=== PATIENT | female | born 1940 | race Caucasian/White ===

== ENCOUNTER 2021-04-30 10:21 | Outpatient (REF) | payer MEDICARE, SELFPAY ==
--- NOTE | ~2021-04-30 | MM_ITS ---
EXAMINATION: BONE DENSITOMETRY CLINICAL INDICATION: Fracture of greater tuberosity of right humerus. COMPARISON: Baseline BD dated 01/03/2013. TECHNIQUE: Using a [employer].M.A[employer].C. DXA System (software version: 13.1) manufactured by [employer], dual-energy x-ray absorptiometry was performed of the lumbar spine and left hip. The images are of good technical quality. Summary results are attached. FINDINGS: AP SPINE L1-L2 (excluding L3 and L4): The data of L1-L4 has been changed to exclude the L3 and L4 vertebral bodies, because hardware at these levels may cause overestimation of lumbar spine density. Current: BMD 0.991 g/cm2, Z-score 0.2, T-score -1.5, osteopenia, 9.4% decrease from baseline (<5% change is not significant). Baseline: BMD 1.094 g/cm2. LEFT FEMUR, NECK: Current: BMD 0.759 g/cm2, Z-score 0.0, T-score -2.0, osteopenia. Baseline: BMD 0.754 g/cm2. LEFT FEMUR, TOTAL: Current: BMD 0.680 g/cm2, Z-score -0.7, T-score -2.6, osteoporosis, 13.2% decrease from baseline (<5% change is not significant). Baseline: BMD 0.783 g/cm2. IDENTIFIED RISK FACTORS: Early menopause, secondary osteoporosis, hysterectomy, bilateral oophorectomy, history of fracture (adult). HISTORY OF FRACTURE: Humerus. MEDICATIONS: Vitamin D. MM/XR DEXA axial skeleton IMPRESSION: 1. DIAGNOSIS: Osteoporosis based on the lowest T-score value of -2.6 in the total femur applying World Health Organization criteria. 2. 10-YEAR FRACTURE RISK PREDICTION, FRAX: According to the guidelines, FRAX calculation should only be performed on patients in the osteopenia bone density category. Therefore, FRAX was not performed on this patient. 3. Treatment Recommendations: NOF guidelines recommend consideration for treatment in postmenopausal women and men age 50 and older presenting with the following: -A hip or vertebral (clinical or morphometric) fracture. -T-score less than or equal to -2.5 at the femoral neck or spine after appropriate evaluation to exclude secondary causes. -Low bone mass at the hip or spine and a 10-year fracture probability by FRAX of greater than or equal to 3% for hip fracture or greater than or equal to 20% for major osteoporotic fracture based on the [place] adapted WHO algorithm. 4. Other Recommendations: All treatment decisions require clinical judgment and consideration of individual patient factors, including patient preferences, comorbidities, previous drug use, risk factors not captured in the FRAX model (e.g. frailty, falls, vitamin D deficiency, increased bone turnover, interval significant decline in bone density) and possible under or overestimation of fracture risk by FRAX. Additional medical evaluation for secondary cause of low bone mineral density may be appropriate. FUTURE SCAN RECOMMENDATION: People with diagnosed cases of osteoporosis or at high risk for fracture should have regular bone mineral density tests. For patients eligible for Medicare, routine testing is allowed once every 2 years. The testing frequency can be increased to one year for patients who have rapidly progressing disease, those who are receiving or discontinuing medical therapy to restore bone mass, or have additional risk factors.
== END 2021-04-30 10:22 | disposition home or self-care (01) ==
LOC: HO.MAMMO 10:21
PROVIDERS: PCP Internal Medicine; Visit Provider Internal Medicine
DX: Z13.820 Encounter for screening for osteoporosis (principal); M81.0 Age-related osteoporosis without current pathological fracture; Z78.0 Asymptomatic menopausal state; Z79.899 Other long term (current) drug therapy
CPT/HCPCS: 77080

== ENCOUNTER 2021-07-15 09:30 | Outpatient (REF) | payer OTHER, SELFPAY ==
[2021-07-15 11:07] LABS: MANUAL DIFF FLAG NO
[2021-07-15 11:47] LABS: Basophils Percent Auto 0.4 % (0-2); Eosinophils Absolute Auto 0.2 X10*3/uL (0.0-0.4); Eosinophils Percent Auto 2.6 % (0-4); Hematocrit 32.5 % (37.0-47.0); Hemoglobin 10.2 g/dl (12.0-16.0); Imm Gran Abs Auto 0.01 X10*3/uL (0.00-0.03); Imm Gran Pct Auto 0.1 % (0.0-0.4); Lymphocytes Absolute Auto 2.9 X10*3/uL (1.2-4.9); Mean Corpuscular HGB Conc 31.4 g/dl (31.0-35.0); Mean Corpuscular Volume 92.3 fL (80.0-98.0); Mean Platelet Volume 12.2 fL (9.4-12.3); Monocytes Absolute Auto 0.4 X10*3/uL (0.1-1.2); Monocytes Percent Auto 4.4 % (2-11); Neutrophils Absolute Auto 5.5 x10*3/uL (2.0-8.3); Neutrophils Percent Auto 60.5 % (45-73); Platelet Count 238 X10*3/uL (160-400); Red Blood Count 3.52 X10*6/uL (4.20-5.50); Red Cell Distribution Width 14.2 % (11.0-16.0); White Blood Count 9.1 X10*3/uL (4.8-10.8)
[2021-07-15 12:28] LABS: Alanine Aminotransferase 10 U/L (0-31); Alkaline Phosphatase 66 U/L (39-117); Anion Gap 17 (12-20); Aspartate Amino Transferase 34 U/L (5-31); Bilirubin Total 0.2 mg/dL (0.0-1.0); Blood Urea Nitrogen 10 mg/dL (9-16); Calcium 10.1 mg/dL (8.4-10.2); Carbon Dioxide 20 mmol/L (22-29); Chloride 106 mmol/L (96-108); Estimated Glomerular Filt Rate > 60; Glucose Random 138 mg/dL (60-115); Potassium 5.4 mmol/L (3.3-5.1); Sodium 138 mmol/L (135-145); Total Protein 7.4 g/dL (6.5-8.0)
[2021-07-15 12:40] LABS: Ferritin 10 ng/mL (10-250)
== END 2021-07-15 09:31 | disposition home or self-care (01) ==
LOC: HO.LAB 09:30
PROVIDERS: PCP Internal Medicine; Referring Provider Internal Medicine; Visit Provider Nurse Practitioner
DX: D50.9 Iron deficiency anemia, unspecified (principal); Z12.11 Encounter for screening for malignant neoplasm of colon; Z79.899 Other long term (current) drug therapy
CPT/HCPCS: 36415; 80053; 82728; 85025; 99202

== ENCOUNTER 2023-02-01 09:28 | Outpatient (REF) | payer OTHER, SELFPAY ==
[2023-02-01 14:37] LABS: MANUAL DIFF FLAG NO
[2023-02-01 14:41] LABS: Basophils Percent Auto 0.4 % (0-2); Eosinophils Absolute Auto 0.2 X10*3/uL (0.0-0.4); Eosinophils Percent Auto 3.1 % (0-4); Hematocrit 36.5 % (37.0-47.0); Hemoglobin 11.9 g/dl (12.0-16.0); Imm Gran Abs Auto 0.01 X10*3/uL (0.00-0.03); Imm Gran Pct Auto 0.1 % (0.0-0.4); Lymphocytes Absolute Auto 2.5 X10*3/uL (1.2-4.9); Lymphocytes Percent Auto 35.9 % (20-40); Mean Corpuscular HGB Conc 32.6 g/dl (31.0-35.0); Mean Corpuscular Hemoglobin 31.7 pg (27.0-33.0); Mean Corpuscular Volume 97.3 fL (80.0-98.0); Mean Platelet Volume 11.9 fL (9.4-12.3); Monocytes Absolute Auto 0.4 X10*3/uL (0.1-1.2); Monocytes Percent Auto 5.2 % (2-11); Neutrophils Absolute Auto 3.9 x10*3/uL (2.0-8.3); Neutrophils Percent Auto 55.3 % (45-73); Platelet Count 236 X10*3/uL (160-400); Red Blood Count 3.75 X10*6/uL (4.20-5.50); Red Cell Distribution Width 12.3 % (11.0-16.0); White Blood Count 7.1 X10*3/uL (4.8-10.8)
[2023-02-01 15:08] LABS: Creatinine Urine 146.85 mg/dL; Microalbum/Creatinine Ratio Ur 8.1 ug/mg cr (<30)
[2023-02-01 15:11] LABS: Alanine Aminotransferase 16 U/L (0-31); Albumin Level 3.8 g/dL (3.5-5.0); Alkaline Phosphatase 84 U/L (39-117); Anion Gap 13 (12-20); Aspartate Amino Transferase 35 U/L (5-31); Bilirubin Direct < 0.2 mg/dL (0.0-0.5); Bilirubin Total 0.2 mg/dL (0.0-1.0); Blood Urea Nitrogen 10 mg/dL (9-16); Calcium 9.4 mg/dL (8.4-10.2); Carbon Dioxide 26 mmol/L (22-29); Chloride 105 mmol/L (96-108); Cholesterol 136 mg/dL (<200); Estimated Glomerular Filt Rate 47; Glucose Random 287 mg/dL (60-115); HDL Cholesterol 38 mg/dL (>40); LDL Cholesterol Calculated 63 mg/dL (<100); Potassium 4.1 mmol/L (3.3-5.1); Sodium 140 mmol/L (135-145); Total Protein 7.2 g/dL (6.5-8.0); Triglycerides 179 mg/dL (<150)
[2023-02-01 15:18] LABS: TSH reflex Free T4 10.91 uIU/mL (0.32-4.0)
[2023-02-01 16:09] LABS: Free T4 (Free Thyroxine) 0.93 ng/dL (0.71-1.85)
== END 2023-02-01 09:29 | disposition home or self-care (01) ==
LOC: HO.CHCLDS 09:28
PROVIDERS: Visit Provider Internal Medicine
DX: E11.9 Type 2 diabetes mellitus without complications (principal); E03.9 Hypothyroidism, unspecified; E78.00 Pure hypercholesterolemia, unspecified
CPT/HCPCS: 36415; 80048; 80061; 80076; 82043; 82570; 84439; 84443; 85025

== ENCOUNTER 2023-11-15 11:02 | Outpatient (REF) | payer OTHER, SELFPAY ==
[2023-11-15 14:26] LABS: MANUAL DIFF FLAG NO
[2023-11-15 14:35] LABS: Basophils Percent Auto 0.4 % (0-2); Eosinophils Absolute Auto 0.1 X10*3/uL (0.0-0.4); Eosinophils Percent Auto 1.7 % (0-4); Hematocrit 41.1 % (37.0-47.0); Hemoglobin 13.8 g/dl (12.0-16.0); Imm Gran Abs Auto 0.02 X10*3/uL (0.00-0.03); Imm Gran Pct Auto 0.3 % (0.0-0.4); Lymphocytes Absolute Auto 2.2 X10*3/uL (1.2-4.9); Mean Corpuscular HGB Conc 33.6 g/dl (31.0-35.0); Mean Corpuscular Hemoglobin 34.1 pg (27.0-33.0); Mean Corpuscular Volume 101.5 fL (80.0-98.0); Mean Platelet Volume 11.6 fL (9.4-12.3); Monocytes Absolute Auto 0.5 X10*3/uL (0.1-1.2); Monocytes Percent Auto 6.6 % (2-11); Neutrophils Absolute Auto 4.2 x10*3/uL (2.0-8.3); Platelet Count 225 X10*3/uL (160-400); Red Blood Count 4.05 X10*6/uL (4.20-5.50); Red Cell Distribution Width 12.4 % (11.0-16.0)
[2023-11-15 14:54] LABS: Alanine Aminotransferase 39 U/L (0-31); Albumin Level 4.5 g/dL (3.5-5.0); Alkaline Phosphatase 170 U/L (39-117); Anion Gap 16 (12-20); Aspartate Amino Transferase 53 U/L (5-31); Bilirubin Total 0.3 mg/dL (0.0-1.0); Blood Urea Nitrogen 12 mg/dL (9-16); Calcium 10.5 mg/dL (8.4-10.2); Carbon Dioxide 27 mmol/L (22-29); Chloride 103 mmol/L (96-108); Cholesterol 171 mg/dL (<200); Estimated Glomerular Filt Rate 55; Glucose Random 235 mg/dL (60-115); HDL Cholesterol 60 mg/dL (>40); LDL Cholesterol Calculated 74 mg/dL (<100); Sodium 142 mmol/L (135-145); Total Protein 8.5 g/dL (6.5-8.0); Triglycerides 185 mg/dL (<150)
[2023-11-15 15:15] LABS: TSH reflex Free T4 0.28 uIU/mL (0.32-4.0); Vitamin D 25-OH Total 45.6 ng/mL (>30)
[2023-11-15 15:17] LABS: Folate 12.3 ng/mL (> or = 4.0); Vitamin B12 152 pg/mL (200-900)
[2023-11-15 15:50] LABS: Free T4 (Free Thyroxine) 1.04 ng/dL (0.71-1.85)
[2023-11-16 08:15] LABS: Syphilis Screen Nonreactive (Nonreactive)
== END 2023-11-15 11:03 | disposition home or self-care (01) ==
LOC: HO.CHCLDS 11:02
PROVIDERS: Visit Provider Internal Medicine
DX: R41.3 Other amnesia (principal); E78.00 Pure hypercholesterolemia, unspecified; E55.9 Vitamin D deficiency, unspecified
CPT/HCPCS: 36415; 80053; 80061; 82306; 82607; 82746; 84439; 84443; 85025; 86780

== ENCOUNTER 2023-11-20 09:50 | Outpatient (REF) | payer OTHER, SELFPAY ==
[2023-11-20 15:09] LABS: Anion Gap 17 (12-20); Blood Urea Nitrogen 12 mg/dL (9-16); Calcium 10.2 mg/dL (8.4-10.2); Carbon Dioxide 26 mmol/L (22-29); Chloride 104 mmol/L (96-108); Estimated Glomerular Filt Rate > 60; Glucose Random 182 mg/dL (60-115); Sodium 143 mmol/L (135-145)
[2023-11-20 15:20] LABS: Parathyroid Hormone Intact 73.8 pg/mL (8.7-77.1)
[2023-11-21 04:47] LABS: HBS Num1 0.66 mIU/mL (0-7.99); HBc Num1 0.11 S/CO (0.00-0.79); HBsAGNum1 0.32 S/CO (0.00-0.99); Hepatitis A Antibody IgM 0.18 Index (0-0.79); Hepatitis B Core Antibody Nonreactive (Nonreactive); Hepatitis B Surface Antigen Negative (Negative); ~HepC Num1 0.07 S/CO (0.00-0.79); ~Hepatitis A Antibody IgM Nonreactive (Nonreactive); ~Hepatitis B Surface Antibody NONREACTIVE (Nonreactive); ~Hepatitis C Antibody Nonreactive (Nonreactive)
== END 2023-11-20 09:51 | disposition home or self-care (01) ==
LOC: HO.CHCLDS 09:50
PROVIDERS: Visit Provider Internal Medicine
DX: E83.52 Hypercalcemia (principal); R74.01 Elevation of levels of liver transaminase levels
CPT/HCPCS: 36415; 80048; 83970; 86704; 86706; 86709; 86803; 87340

== ENCOUNTER 2023-11-22 09:37 | Outpatient (REF) | payer OTHER, SELFPAY ==
--- NOTE | ~2023-11-22 | US_ITS ---
EXAMINATION: US ABDOMEN COMPLETE CLINICAL INFORMATION: Transaminitis. COMPARISON: CT abdomen and pelvis 06/23/2016. TECHNIQUE: Real-time imaging of the abdominal viscera. FINDINGS: PANCREAS: The pancreas appears unremarkable, without masses or ductal dilatation, with the exception of the tail which is obscured by bowel gas. ABDOMINAL AORTA: The proximal, mid, and distal segments are normal in caliber. Atherosclerotic changes are present. INFERIOR VENA CAVA: Visualized portions are normal. LIVER: The liver is enlarged measuring 17.5 cm in greatest dimension. The liver contour is normal. There is diffuse increased liver parenchymal echogenicity, consistent with hepatic steatosis. No focal hepatic lesion. There is no intrahepatic biliary duct dilatation seen. GALLBLADDER: Surgically absent. COMMON BILE DUCT: Normal in caliber measuring 0.8 cm in diameter. RIGHT KIDNEY: No hydronephrosis. No renal calculi or focal parenchymal lesions. The kidney measures 8.9 cm in maximum dimension. LEFT KIDNEY: No hydronephrosis. No renal calculi or focal parenchymal lesions. The kidney measures 10.5 cm in maximum dimension. SPLEEN: Normal. The spleen measures 9.2 cm in maximum dimension. FREE FLUID: None. US/US abdomen complete IMPRESSION: Enlarged fatty liver. Electronically signed by: Clint Gil MD 11/29/2023 02:10 PM EDT
== END 2023-11-22 09:38 | disposition home or self-care (01) ==
LOC: HO.US 09:37
PROVIDERS: PCP Internal Medicine; Visit Provider Internal Medicine
DX: R74.01 Elevation of levels of liver transaminase levels (principal)
CPT/HCPCS: 76700

== ENCOUNTER 2024-02-05 10:47 | Outpatient (REF) | payer OTHER, SELFPAY ==
[2024-02-05 15:03] LABS: Alanine Aminotransferase 28 U/L (0-31); Albumin Level 4.1 g/dL (3.5-5.0); Alkaline Phosphatase 104 U/L (39-117); Anion Gap 16 (12-20); Aspartate Amino Transferase 59 U/L (5-31); Bilirubin Total 0.3 mg/dL (0.0-1.0); Blood Urea Nitrogen 7 mg/dL (9-16); Calcium 9.6 mg/dL (8.4-10.2); Carbon Dioxide 25 mmol/L (22-29); Chloride 104 mmol/L (96-108); Estimated Glomerular Filt Rate > 60; Glucose Random 118 mg/dL (60-115); Potassium 3.9 mmol/L (3.3-5.1); Sodium 141 mmol/L (135-145); TSH reflex Free T4 74.29 uIU/mL (0.32-4.0); Total Protein 7.4 g/dL (6.5-8.0)
[2024-02-05 15:16] LABS: Folate 7.8 ng/mL (> or = 4.0); Vitamin B12 812 pg/mL (200-900)
[2024-02-05 15:34] LABS: Free T4 (Free Thyroxine) 0.49 ng/dL (0.71-1.85)
== END 2024-02-05 10:48 | disposition home or self-care (01) ==
LOC: HO.CHCLDS 10:47
PROVIDERS: Visit Provider Internal Medicine
DX: K76.0 Fatty (change of) liver, not elsewhere classified (principal); E03.9 Hypothyroidism, unspecified; E11.9 Type 2 diabetes mellitus without complications; E53.8 Deficiency of other specified B group vitamins
CPT/HCPCS: 36415; 80053; 82607; 82746; 84439; 84443

== ENCOUNTER 2024-05-27 15:52 | Outpatient (REF) | payer OTHER, SELFPAY ==
[2024-05-27 17:29] LABS: MANUAL DIFF FLAG NO
[2024-05-27 17:36] LABS: Basophils Percent Auto 0.6 % (0-2); Eosinophils Absolute Auto 0.2 X10*3/uL (0.0-0.4); Eosinophils Percent Auto 3.5 % (0-4); Hematocrit 34.4 % (37.0-47.0); Hemoglobin 11.3 g/dl (12.0-16.0); Imm Gran Abs Auto 0.02 X10*3/uL (0.00-0.03); Imm Gran Pct Auto 0.3 % (0.0-0.4); Lymphocytes Absolute Auto 2.3 X10*3/uL (1.2-4.9); Lymphocytes Percent Auto 36.5 % (20-40); Mean Corpuscular HGB Conc 32.8 g/dl (31.0-35.0); Mean Corpuscular Hemoglobin 34.1 pg (27.0-33.0); Mean Corpuscular Volume 103.9 fL (80.0-98.0); Mean Platelet Volume 12.2 fL (9.4-12.3); Monocytes Absolute Auto 0.4 X10*3/uL (0.1-1.2); Monocytes Percent Auto 5.8 % (2-11); Neutrophils Absolute Auto 3.3 x10*3/uL (2.0-8.3); Neutrophils Percent Auto 53.3 % (45-73); Platelet Count 222 X10*3/uL (160-400); Red Blood Count 3.31 X10*6/uL (4.20-5.50); Red Cell Distribution Width 12.8 % (11.0-16.0); White Blood Count 6.2 X10*3/uL (4.8-10.8)
[2024-05-27 18:10] LABS: Alanine Aminotransferase 82 U/L (0-31); Albumin Level 4.5 g/dL (3.5-5.0); Alkaline Phosphatase 145 U/L (39-117); Anion Gap 14 (12-20); Aspartate Amino Transferase 92 U/L (5-31); Bilirubin Total 0.3 mg/dL (0.0-1.0); Blood Urea Nitrogen 13 mg/dL (9-16); Calcium 9.9 mg/dL (8.4-10.2); Carbon Dioxide 28 mmol/L (22-29); Chloride 104 mmol/L (96-108); Estimated Glomerular Filt Rate > 60; Glucose Random 218 mg/dL (60-115); Sodium 142 mmol/L (135-145); Total Protein 8.4 g/dL (6.5-8.0)
[2024-05-27 18:28] LABS: TSH reflex Free T4 41.55 uIU/mL (0.32-4.0)
[2024-05-27 18:38] LABS: Folate 11.3 ng/mL (> or = 4.0); Vitamin B12 335 pg/mL (200-900)
[2024-05-27 19:00] LABS: Free T4 (Free Thyroxine) 0.55 ng/dL (0.71-1.85)
== END 2024-05-27 15:53 | disposition home or self-care (01) ==
LOC: HO.CHCLDS 15:52
PROVIDERS: Visit Provider Internal Medicine
DX: E03.9 Hypothyroidism, unspecified (principal); E53.8 Deficiency of other specified B group vitamins
CPT/HCPCS: 36415; 80053; 82607; 82746; 84439; 84443; 85025

== ENCOUNTER 2024-08-06 11:20 | Emergency (ER) | payer OTHER, SELFPAY ==
[2024-08-06] VITALS (7 sets, daily range): BP systolic 134–155; BP diastolic 70–82; PULSE 64–77; RESP 13–16; TEMP 36.7–37.1; O2SAT 95–99; BMI 31.2
--- NOTE | ~2024-08-06 | CT_ITS ---
CLINICAL HISTORY: Dizziness CT head without contrast Comparison: None Findings: No acute hemorrhage. No extra-axial fluid collection. No hydrocephalus, mass-effect or herniation. Ruvalcaba-white differentiation is maintained. There is patchy hypoattenuation of the periventricular and deep white matter, which is most likely the sequela of severe chronic small vessel ischemic disease. No acute orbital pathology. No acute soft tissue abnormality. No fracture. The visualized paranasal sinuses are predominantly clear. The right mastoid air cells are clear. Opacification of left posterior inferior mastoid air cells may indicate an effusion or mastoiditis. There is coalescence which may indicate chronicity. Impression: No acute intracranial findings. CTA of the head and neck with 3-D postprocessing Comparison: None Findings: No significant carotid artery stenosis. 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 V4 segment of the left vertebral artery is hypoplastic. The cerebellar and posterior cerebral arteries are intact. The intracranial internal carotid arteries are patent. The middle/anterior cerebral arteries are intact. No aneurysm. No mass, midline shift, hydrocephalus, acute hemorrhage or abnormal contrast enhancement. The lung apices are clear. The soft tissues of the head and neck are unremarkable. 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 This vessel feeds the posterior circulation and there is severe calcified atherosclerotic disease with significant stenosis. 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 No aneurysm. This document has been electronically signed by: Nolvia Victor MD on 08/06/2024 18:28:50
--- NOTE | ~2024-08-06 | CT_ITS ---
CLINICAL HISTORY: Blood in urine. back pain CT abdomen and pelvis without contrast Comparison: None Findings: No consolidation at the lung bases. Status post cholecystectomy and hysterectomy. Mild wall thickening of the bladder. No bladder stone. Mild fullness of the right renal pelvis. No left hydronephrosis. No nephrolithiasis. The other solid organs are unremarkable. No bowel wall thickening or dilation. A normal appendix is identified. Colonic diverticulosis. No aneurysm. Moderate calcified atherosclerotic disease. No lymphadenopathy. No ascites. No acute osseous abnormality. Status post posterior fusion L3 through L5. Intact hardware Impression: Mild wall thickening of the bladder may indicate cystitis. Mild fullness of the right renal pelvis can be seen in the setting of infection. Correlate with urinalysis. No urinary tract stone. This document has been electronically signed by: Nolvia Victor MD on 08/06/2024 18:07:46
--- NOTE | ~2024-08-06 | CT_ITS ---
CLINICAL HISTORY: Pneumonia? Fatigue CT chest without contrast Comparison: None Findings: No mediastinal mass or lymphadenopathy. No cardiomegaly. Severe calcified coronary artery disease. Mild calcification of the aortic valve and mitral annulus. Normal size thoracic aorta with a moderate amount of calcified atherosclerotic disease. Calcified granuloma. Subsegmental atelectasis versus linear scarring. Mosaic attenuation which may indicate air trapping. Pulmonary nodules measure up to 3 mm. No pneumothorax or pleural effusion. No acute osseous or soft tissue abnormality. No acute pathology in the imaged portion of the upper abdomen. Status post cholecystectomy. Impression: No pneumonia. Pulmonary nodules measuring up to 3 mm, likely infectious/inflammatory. No follow-up is required in low risk individuals. High risk individuals have the option of a 1 year follow-up chest CT. This document has been electronically signed by: Nolvia Victor MD on 08/06/2024 18:04:38
--- NOTE | 2024-08-06 11:28 | ECG_ITS ---
Test Reason : weakness Blood Pressure : */* mmHG Vent. Rate : 75 BPM Atrial Rate : 75 BPM P-R Int : 152 ms QRS Dur : 82 ms QT Int : 394 ms P-R-T Axes : 73 38 36 degrees QTcB Int : 439 ms Normal sinus rhythm Nonspecific T wave abnormality Abnormal ECG When compared with ECG of 08-Jul-2016 13:42, Nonspecific T wave abnormality now evident in Inferior leads Nonspecific T wave abnormality now evident in Anterolateral leads Referred By: Generic ED Physician Electronically Signed By: SOWMYA GROSS MD
[2024-08-06 12:00] LABS: MANUAL DIFF FLAG NO
[2024-08-06 12:02] LABS: Basophils Percent Auto 0.4 % (0-2); Eosinophils Absolute Auto 0.4 X10*3/uL (0.0-0.4); Eosinophils Percent Auto 4.9 % (0-4); Hematocrit 33.7 % (37.0-47.0); Hemoglobin 11.6 g/dl (12.0-16.0); Imm Gran Abs Auto 0.02 X10*3/uL (0.00-0.03); Imm Gran Pct Auto 0.3 % (0.0-0.4); Lymphocytes Absolute Auto 2.6 X10*3/uL (1.2-4.9); Lymphocytes Percent Auto 36.9 % (20-40); Mean Corpuscular HGB Conc 34.4 g/dl (31.0-35.0); Mean Corpuscular Hemoglobin 34.3 pg (27.0-33.0); Mean Corpuscular Volume 99.7 fL (80.0-98.0); Mean Platelet Volume 10.9 fL (9.4-12.3); Monocytes Absolute Auto 0.4 X10*3/uL (0.1-1.2); Neutrophils Absolute Auto 3.8 x10*3/uL (2.0-8.3); Neutrophils Percent Auto 52.5 % (45-73); Platelet Count 191 X10*3/uL (160-400); Red Blood Count 3.38 X10*6/uL (4.20-5.50); Red Cell Distribution Width 12.2 % (11.0-16.0); White Blood Count 7.2 X10*3/uL (4.8-10.8)
[2024-08-06 12:14] LABS: Appearance Urine Turbid; Color Urine Yellow; Glucose Urine UA Negative (Negative); Leukocyte Esterase Urine Large (3+) (Negative); Nitrite Urine Negative (Negative); PH 5.5 (5.0-9.0); Specific Gravity - Urine 1.015 (1.005-1.025); UMIC TRIGGER UACC YES; Urine Blood Trace (Negative); Urine Ketones Negative (Negative); Urine Protein Trace mg/dL (Neg-Trace)
[2024-08-06 12:16] LABS: Bacteria Urine 4+ (None Seen); Hyaline Casts Urine 0-2 /LPF (0-2); RBC Urine 0-2 /HPF (0-2); Squamous Epithelial Cell Urine 0-2 /HPF (0-2); UACC Culture Trigger YES; WBC Urine >50 /HPF (0-5)
[2024-08-06 12:17] LABS: Alanine Aminotransferase 106 U/L (0-31); Albumin Level 4.5 g/dL (3.5-5.0); Alkaline Phosphatase 140 U/L (39-117); Anion Gap 16 (12-20); Aspartate Amino Transferase 114 U/L (5-31); Bilirubin Total 0.2 mg/dL (0.0-1.0); Blood Urea Nitrogen 9 mg/dL (9-16); Calcium 9.6 mg/dL (8.4-10.2); Carbon Dioxide 22 mmol/L (22-29); Chloride 105 mmol/L (96-108); Creatinine Clr Calc Pharmacy 51.2; Estimated Glomerular Filt Rate > 60; Glucose Random 133 mg/dL (60-115); Potassium 4.3 mmol/L (3.3-5.1); Sodium 139 mmol/L (135-145); Total Protein 7.9 g/dL (6.5-8.0)
[2024-08-06 12:26] LABS: Troponin-I High Sensitivity < 2.7 ng/L (<3.5-17.0)
[2024-08-06 12:40] LABS: Influenza A PCR NEGATIVE (Negative); Influenza B PCR NEGATIVE (Negative); Resp Syncy Virus RNA Qual PCR NEGATIVE (Negative); SARS COV2 PCR INHOUSE NEGATIVE (Negative)
--- NOTE | 2024-08-06 12:55 | ED_ITS ---
HPI - General Adult General Chief complaint: General Medical Stated complaint: Chills, back pain, fatigue Time Seen by Provider: 08/06/24 12:54 Source: patient Mode of arrival: ambulatory Limitations: no limitations History of Present Illness ED Provider: Vik Gallegos HPI narrative: 84 yold female with pmh of DM and HTN presents to the ED low back pain radiating down legs, decrease appetiite, fatigue, and dizziness for one week. Patient and daughter denies falling, hitting head, or urinary/bowel incontinnce. Patient denies any abdominal pain, fever, chills, chest pain, or coughing. patient denies any IV drug use or immunocompromised diseases. Related Data Home Medications ?Medication ?Instructions ?Recorded ?Confirmed cholecalciferol (vitamin D3) 25 25 mcg PO DAILY 07/15/21 07/15/21 mcg (1,000 unit) capsule docusate sodium 100 mg capsule 100 mg PO DAILY 07/15/21 07/15/21 (Colace) duloxetine 20 mg capsule,delayed 20 mg PO BID 07/15/21 07/15/21 release levothyroxine 125 mcg capsule 125 mcg PO DAILY 07/15/21 07/15/21 melatonin 5 mg capsule mg PO .qhs 07/15/21 07/15/21 metformin 1,000 mg tablet 1,000 mg PO BID 07/15/21 07/15/21 mirtazapine 30 mg tablet 30 mg PO BEDTIME 07/15/21 07/15/21 sitagliptin phosphate 100 mg 100 mg PO DAILY 07/15/21 07/15/21 tablet (Januvia) Previous Rx's ?Medication ?Instructions ?Recorded peg 3350-electrolytes 236 240 ml PO Q10M 1 day #4,000 mL 07/15/21 gram-22.74 gram-6.74 gram-5.86 gram solution (Golytely) cefuroxime axetil 250 mg tablet 250 mg PO Q12H 7 days #14 tabs 08/06/24 Allergies Allergy/AdvReac Type Severity Reaction Status Date / Time acetaminophen [Tylenol] Allergy Unknown Abdominal Verified 08/06/24 11:24 Pain albuterol [ALBUTEROL] Allergy Unknown VIJAYA Verified 08/06/24 11:24 ibuprofen [IBUPROFEN] Allergy Unknown HYPER Verified 08/06/24 11:24 oxycodone [OXYCODONE] Allergy Unknown RASH, ITCHY Verified 08/06/24 11:24 Albuterol Allergy Unknown Anxiety Uncoded 07/15/21 09:53 Review of Systems 2 Review of Systems: back pain radiating down legs, decreased appettite, dzieeines, fatigue Yes all other systems are reviewed and are negative [facility] Past Medical History Surgical History (Updated 07/12/21 @ 11:38 by OVI Neil) H/O lumbar discectomy History of tubal ligation History of cholecystectomy Physical Exam ED Vital Signs: Vital Signs - 24 hr 08/06/24 11:23 08/06/24 13:21 08/06/24 13:21 Temperature 98.3 F 98.7 F Pulse Rate 77 66 66 Respiratory Rate 16 15 Blood Pressure 142/70 H 140/80 H Pulse Oximetry 97 99 Oxygen Delivery Method Room Air Room Air 08/06/24 13:42 08/06/24 13:44 08/06/24 14:00 Temperature 98.2 F Pulse Rate 70 72 65 Respiratory Rate 13 Blood Pressure 140/82 H 134/70 155/82 H Pulse Oximetry 99 Oxygen Delivery Method Room Air 08/06/24 18:46 08/06/24 19:43 Temperature 98.1 F 98.1 F Pulse Rate 64 64 Respiratory Rate 14 14 Blood Pressure 148/71 H 148/71 H Pulse Oximetry 95 95 Oxygen Delivery Method Room Air Room Air BMI result Body Mass Index 31.2 Const General: cooperative, healthy appearing, comfortable, no acute distress, well developed, alert, awake and Physically active Orientation/consciousness: patient oriented x3 HENMT Head: Yes normal to inspection, Yes No palpable skull fracture present, Yes normocephalic and Yes atraumatic Eyes General: appearance normal, both eyes and all related structures Neck Neck: Yes normal visual inspection, Yes full ROM, Yes no lymphadenopathy, Yes no meningeal signs, Yes trachea midline, Yes supple, No anterior neck swelling and No tender Chest Chest palpation & inspection: normal inspection of the chest and normal palpation of entire chest wall Resp Effort & Inspection: normal respiratory effort and able to speak in complete sentences Auscultation: clear to auscultation bilaterally Cardio Jugular venous distension: no JVD Heart sounds: S1 normal heart sound present and S2 normal heart sound present GI Inspection: Yes normal to inspection Palpation (GI): Soft to palpation, not firm, nontender, no guarding and not rigid General: Yes no CVA tenderness Back/Spine/Pelvis Back: no CVA tenderness and No back tenderness Skin General skin exam: no rashes or lesions noted, elasticity normal and turgor normal Neuro Other: Negative Romberg. Negative slurred speech. Negative facial droop. All extremities equal strength 5+. [id number] and rapid hand movement intact. Negative facial droop. General: patient oriented x3, gait normal, tone normal, moves all extremities, Normal light touch and pain sensation, no meningeal signs, no focal motor deficits, CN's II-XI intact bilaterally and normal sensation to monofilament Extrem General: Yes normal to inspection, Yes full ROM and Yes capillary refill normal Psych Appearance: grossly normal, well kempt and not disheveled NIH Stroke Scale Internal: Initial- Upon Arrival Level of Consciousness: Alert Level of Consciousness Questions: Answers both questions correctly Level of Consciousness Commands: Performs both tasks correctly Best Gaze: Normal Visual: No visual loss Facial Palsy: Normal Motor Arm (Right): No drift Motor Arm (Left): No drift Motor Leg (Right): No drift Motor Leg (Left): No drift Limb Ataxia: Absent Sensory: Normal Best Language: No aphasia Dysarthia: Normal Extinction and Inattention: No abnormality Score: 0 Medications Administered Discontinued Medications Generic Name Dose Route Start Last Admin Trade Name Freq PRN Reason Stop Dose Admin Cefuroxime Axetil 250 mg 08/06/24 19:14 08/06/24 19:31 Cefuroxime Axetil 250 Mg Tablet PO 08/06/24 19:15 250 mg ONCE ONE Administration Sodium Chloride 1,000 mls @ 999 mls/hr 08/06/24 14:24 08/06/24 16:35 Ns IV 08/06/24 15:24 Infused .Q1H1M STA Infusion Iohexol 70 ml 08/06/24 16:51 08/06/24 16:51 Iohexol 350 Mg/Ml 100 Ml Infus..Btl IV 08/06/24 16:52 70 ml ONCE ONE Administration Meclizine HCl 50 mg 08/06/24 15:45 08/06/24 16:39 Meclizine Hcl 25 Mg Tablet PO 08/06/24 15:46 50 mg ONCE ONE Administration Medical Decision Making Medical Decision Making MDM Narrative: 84 yold female with pmh of DM and HTN presents to the ED for low back pain radiating down legs, fatigue, decrease appettite, dizziness descrobed as lightheadedness and room spinning. Presently patient has no back spine tenderness on palpation. Patient has complete range of motion of lower extremities. NIH score is 0. Patient went from sitting to standing up position patient felt dizzy will do orthostatics repeat EKG. Initial UA shows UTI Carlos CT scan check for kidney stones. Negative nystagmus. 5:16: Patient presently has no back pain. Patient has complete range of motion of lower extremities. Patient was sent for head CTA due to patient stating room feeling dizzy from lying down to standing up and negative orthostatics. Patient was sent for chest CT dried make sure there is no pneumonia due to patient feeling fatigued and loss of appetite. Patient was sent for dry abdominal CT scan due to bloody urine check for any kidney stone pyelonephritis. Not suspecting epidural abscess cauda equinus syndrome or osteomyelitis. Patient denies any urinary/bowel incontinence. 6:56pm: Abdominal CT scan shows signs of cystitis which is confirmed by urine. Chest CTA shows pulmonary nodules no pneumonia. 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 Case was discussed with Dr. Santos a vascular surgeon who states patient can be follow up outpatient but must follow up at [facility] neuro interventional. Patient has no signs of large vein occlusion. Patient and daughter made aware of this. Not suspecting posterior cerebellar stroke. Negative Romberg. Negative for any ataxia of gait. Patient will be given 1st dose of antibiotic for UTI. Not suspecting MA, sepsis, meningtis, encephalitits, cauda equina syndrome, epidiural abscess, osteomyelitits or any other life threatenign eitoogy. Case discussed with Dr. Anoop Bagley who agreed with plan. Differential Diagnosis Differential Diagnoses: The differential diagnosis associated with the presentation includes (UTI, pneumonia, vertigo, carotid occlusion) Admission/Observation Consideration of admission/observation: Escalation of care including admission/observation considered Consult Healthcare Provider Management of the patient was discussed with: Environmental Permitting Specialist (Dr. Santos) Lab Data [facility] Lab Attestation statement: I reviewed the patient's lab results. 08/06/24 11:56 08/06/24 11:56 Labs: Lab Results 08/06/24 08/06/24 08/06/24 Range/Units 11:56 12:01 15:25 WBC 7.2 (4.8-10.8) X10*3/uL RBC 3.38 L (4.20-5.50) X10*6/uL Hgb 11.6 L (12.0-16.0) g/dl Hct 33.7 L (37.0-47.0) % MCV 99.7 H (80.0-98.0) fL MCH 34.3 H (27.0-33.0) pg MCHC 34.4 (31.0-35.0) g/dl RDW 12.2 (11.0-16.0) % Plt Count 191 (160-400) X10*3/uL MPV 10.9 (9.4-12.3) fL Immature Gran % (Auto) 0.3 (0.0-0.4) % Neut % (Auto) 52.5 (45-73) % Lymph % (Auto) 36.9 (20-40) % [place] % (Auto) 5.0 (2-11) % Eos % (Auto) 4.9 H (0-4) % Baso % (Auto) 0.4 (0-2) % Lymph # (Auto) 2.6 (1.2-4.9) X10*3/uL [place] # (Auto) 0.4 (0.1-1.2) X10*3/uL Eos # (Auto) 0.4 (0.0-0.4) X10*3/uL Baso # (Auto) 0.0 (0.0-0.2) X10*3/uL Abs Immat Gran (auto) 0.02 (0.00-0.03) X10*3/uL Absolute Neuts (auto) 3.8 (2.0-8.3) x10*3/uL Absolute Nucleated RBC 0.000 (0.0-0.012) X10*3/uL Nucleated RBC % (auto) 0.0 (0.0-0.2) /100WBC Sodium 139 (135-145) mmol/L Potassium 4.3 (3.3-5.1) mmol/L Chloride 105 (96-108) mmol/L Carbon Dioxide 22 (22-29) mmol/L Anion Gap 16 (12-20) BUN 9 (9-16) mg/dL Creatinine 0.77 (0.5-1.4) mg/dL Estim Creat Clear Calc 51.2 Estimated GFR > 60 Random Glucose 133 H (60-115) mg/dL Calcium 9.6 (8.4-10.2) mg/dL Magnesium 1.8 (1.6-2.6) mg/dL Total Bilirubin 0.2 (0.0-1.0) mg/dL AST 114 H (5-31) U/L ALT 106 H (0-31) U/L Alkaline Phosphatase 140 H (39-117) U/L Total Creatine Kinase 127 (26-140) U/L Troponin I High Sens < 2.7 < 2.7 (<3.5-17.0) ng/L Total Protein 7.9 (6.5-8.0) g/dL Albumin 4.5 (3.5-5.0) g/dL Urine Color Yellow Urine Appearance Turbid Urine pH 5.5 (5.0-9.0) Ur Specific [place] 1.015 (1.005-1.025) Urine Protein Trace (Neg-Trace) mg/dL Urine Glucose (UA) Negative (Negative) mg/dL Urine Ketones Negative (Negative) mg/dL Urine Blood Trace H (Negative) Urine Nitrite Negative (Negative) Ur Leukocyte Esterase Large (3+) H (Negative) Urine RBC 0-2 (0-2) /HPF Urine WBC >50 H (0-5) /HPF Ur Squamous Epith Cells 0-2 (0-2) /HPF Urine Bacteria 4+ (None Seen) Hyaline Casts 0-2 (0-2) /LPF Influenza Type A (PCR) NEGATIVE (Negative) Influenza Type B (PCR) NEGATIVE (Negative) RSV RNA Qual (PCR) NEGATIVE (Negative) SARS-CoV-2 RNA (RT-PCR) NEGATIVE (Negative) Independent Interpretation I performed an independent interpretation of an: CT Scan Radiology Impression Discussion of test interpretation with radiology: I have reviewed the radiologist's reading. Prescription Management I considered prescription management with: Antibiotic Critical Care Time Critical Care Time Critical Care Time: Yes Total Critical Care Time: 60 Attestation: Carotid occlusion. Case discussed with Dr. Santos recommends patient be follow up outpatient but at [facility] neurovascular intervention. Case discussed with attending Dr. Anoop Chanler- Berat Discharge Plan Discharge Clinical Impression: Acute UTI, Dizziness Patient Disposition: Home, Self-Care Instructions: Urinary Tract Infection in Women (ED), Carotid Artery Disease (DC), Dizziness (ED) Additional Instructions: Recommend follow-up with [facility] neuro interventional in your primary care provider. Return to the ED immediately for any abdominal pain, nausea, vomiting, fever, chills, flank pain, chest pain, shortness of breath, headache, slurred speech, facial droop, paralysis of extremities, nausea, vomiting, inability to walk, or any other concerning symptoms. [facility] Neuro[facility]ovascular [facility] [phone] [place] [address],?[id number]. Dr. Aroldo Schuster CTA of the head and neck with 3-D postprocessing Comparison: None Findings: No significant carotid artery stenosis. 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 V4 segment of the left vertebral artery is hypoplastic. The cerebellar and posterior cerebral arteries are intact. The intracranial internal carotid arteries are patent. The middle/anterior cerebral arteries are intact. No aneurysm. No mass, midline shift, hydrocephalus, acute hemorrhage or abnormal contrast enhancement. The lung apices are clear. The soft tissues of the head and neck are unremarkable. 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 This vessel feeds the posterior circulation and there is severe calcified atherosclerotic disease with significant stenosis. 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 No aneurysm. This document has been electronically signed by: Nolvia Victor MD on 08/06/2024 18:28:50 Prescriptions: New cefuroxime axetil 250 mg tablet 250 mg PO Q12H 7 Days Qty: 14 0RF No Action duloxetine 20 mg capsule,delayed release(DR/EC) 20 mg PO BID docusate sodium [Colace] 100 mg capsule 100 mg PO DAILY Januvia 100 mg tablet 100 mg PO DAILY levothyroxine 125 mcg capsule 125 mcg PO DAILY melatonin 5 mg capsule PO .qhs metformin 1,000 mg tablet 1,000 mg PO BID mirtazapine 30 mg tablet 30 mg PO BEDTIME cholecalciferol (vitamin D3) 25 mcg (1,000 unit) capsule 25 mcg PO DAILY peg 3350-electrolytes [Golytely] 236-22.74-6.74 -5.86 gram recon soln 240 ml PO Q10M 1 Days Qty: 4000 0RF Rx Instructions: until fecal effluent is clear; do not exceed a total volume of 2,000 mL Referrals: Regina Soto MD [Primary Care Provider] - (UTI, carotid artery disease) Interventions: ED Discharge Assessment Last Done: 08/06/24 19:43 Discharge Date/Time: 08/06/24 19:48 Print Language: Lao
--- OUTSIDE RECORDS SUMMARY | 2024-08-06 13:12 | XMS_ITS | Encounter Summary ---
Author Organization [employer] Address [address] [facility] [address] [place] [address] Care Team Providers Care Concrete Mason Name Role Phone Regina Soto MD Primary Care Provider [phone] Reason for Visit * Reason Comments Med Refill Encounter Details Date Type Department Care Team ([facility] Contact Info) Description 03/18/2022 Refill [facility] MEDICINE [address] [place], [place] [phone] Sang Reyez MD [address] [place], [place] [phone] Anxiety (Primary Dx) Social History Tobacco Use Types Packs/Day Years Used Date Smoking Tobacco: Never Assessed Comments Unknown Sex and Gender Information Value Date Recorded Sex Assigned at Female 01/10/2022 10:20 AM EDT Legal Sex Female 10:20 AM EDT Gender Identity Female 01/10/2022 10:20 AM EDT Sexual Orientation Choose not to disclose 2021 10:20 AM EDT documented as of this encounter Plan of Treatment Upcoming Encounters Date Type Department Care Team ([facility] Contact Info) Description 08/30/2024 2:30 PM EDT Office Visit [facility] MED [facility] PEDS [address] [place], [place] [phone] Regina Soto MD [address] [place], [place] [phone] documented as of this encounter Visit Diagnoses Diagnosis Anxiety- Primary Anxiety state, unspecified documented in this encounter Care Teams Concrete Mason Relationship Specialty Start Date End Date Regina Soto MD [address] [place] [address] PCP - General Internal Medicine 03/20/13 documented as of this encounter
[2024-08-06 14:12] LABS: Magnesium 1.8 mg/dL (1.6-2.6)
[2024-08-06] MEDS: 0.9 % Sodium Chloride 1,000 ML 999 ML IV (15:34)
[2024-08-06 15:58] LABS: Troponin-I High Sensitivity < 2.7 ng/L (<3.5-17.0)
[2024-08-06] MEDS: Meclizine HCl 25 MG TABLET 50 MG PO (16:39)
[2024-08-06] MEDS: iohexoL 350 MG/ML 100 ML INFUS..BTL 70 ML IV (16:51)
[2024-08-06] MEDS: cefuroxime axetiL 250 MG TABLET PO (19:31)
== END 2024-08-06 19:48 | disposition home or self-care (01) ==
PROVIDERS: Emergency Medicine; Physician Assistant; Emergency Provider Emergency Medicine; PCP Internal Medicine
DX: N39.0 Urinary tract infection, site not specified (principal); R42 Dizziness and giddiness; M54.50 Low back pain, unspecified; R94.31 Abnormal electrocardiogram [ECG] [EKG]; R10.2 Pelvic and perineal pain; R53.1 Weakness; M54.2 Cervicalgia; R11.0 Nausea; Z79.899 Other long term (current) drug therapy; Z03.818 Encounter for observation for suspected exposure to other biological agents ruled out
CPT/HCPCS: 0241U; 36415; 70496; 70498; 71250; 74176; 80053; 81001; 82550; 83735; 84484; 85025; 87086; 87088; 87186; 93005; 96360; 99284; 99285; Q9967

== ENCOUNTER → 2024-08-06 11:28 | Outpatient (BNV) | payer OTHER, SELFPAY | PROVIDERS: PCP Internal Medicine; Visit Provider Internal Medicine Cardiovascular Disease | DX: R94.31 Abnormal electrocardiogram [ECG] [EKG] (principal); R53.1 Weakness | CPT/HCPCS: 93010 ==

== ENCOUNTER → 2024-08-06 14:24 | Outpatient (BNV) | payer OTHER, SELFPAY | PROVIDERS: Emergency Provider Emergency Medicine; PCP Internal Medicine; Visit Provider Radiology Diagnostic Radiology | DX: R42 Dizziness and giddiness (principal); R31.9 Hematuria, unspecified; R91.8 Other nonspecific abnormal finding of lung field | CPT/HCPCS: 70496; 70498; 71250; 74176 ==

== ENCOUNTER 2025-01-14 09:40 | Outpatient (REF) | payer OTHER, SELFPAY ==
--- OUTSIDE RECORDS SUMMARY | 2025-01-13 15:45 | XMS_ITS | Encounter Summary ---
Author Organization [employer] Address [address] [place] [address] 7 [place] [address] Care Team Providers Care Medical Imaging Specialist Name Role Phone Regina Soto MD Primary Care Provider [phone] Reason for Referral * Consultation (Routine) - Closed Specialty Diagnoses / Procedures Referred By Suzan matthews Referred To Contact Physical Therapy Diagnoses Gait disturbance Regina Soto MD [address] [place] [id number] Phone: tel: fax: [facility] [address] [place] [address] Phone: tel: fax: Referral ID Status Reason Start Date Expiration Date V isits Requested Visits Authorized [id number] Closed Specialty Services Required 01/13/2025 01/13/2026 1 1 * Consultation (Routine) - Authorized Specialty Diagnoses / Procedures Referred By Suzan matthews Referred To Contact Neurology Diagnoses Gait disturbance Regina Soto MD [address] [place] [phone] Phone: tel: fax: Omid Macias MD [address] [place] [address] [place] [address] Phone: tel: fax: Referral ID Status Reason Start Date Expiration Date Visits Requested Visits Authorized [id number] Authorized Specialty Services Required 01/13/2025 01/13/2026 1 1 Reason for Visit * Reason Comments Abnormal gait Encounter Details Date Type Department Care Team ([facility] st Contact Info) Description 01/13/2025 3:45 PM EST Office Visit [facility] [address] [place] [address] Regina Soto MD [address] [place] [address] Gait disturbance (Primary Dx); Numbness and tingling of both feet; Encounter for immunization; Type 2 diabetes mellitus with other neurologic complication, without long-term current use of insulin (HCC) Social History Tobacco Use Types Packs/Day Years Used Date Smoking Tobacco: Never Smokeless Tobacco: Never Alcohol Answer Date Recorded How often do you have a drink containing alcohol ? 2 05/27/2024 How many drinks containing a lcohol do you have on a typical day when you are drinking? 0 05/27/2024 How often do you have six or more drinks on one occasion? 0 05/27/2024 Depression Answer Date Recorded Patient Health Questionnaire-9 Score 5 05/27/2024 Patient Health Questionnaire-9 Score 5 05/27/2024 Last PHQ-9: Questionnaire Data Not on file 0 05/27/2024 Housing Stability Answer Date Recorded What is your housing situation today? I have judieshay huerta 11/06/[address] you li ve. Do you have problems with any of the following? None of the above 11/06/2023 Food Insecurity Answer Date Recorded Within the past 12 months, y ou worried that your food would run out before you got money to buy more: Never True 11/06/2023 Within the past 12 months,th e food you bought just didn't last and you didn't have enough money to get more: Never True Transportation Answer Date Recorded In the past 12 months, has l ack of transportation kept you from medical appts, meetings, work or from getting things needed for daily living? No 11/06/2023 Utilities Answer Date Recorded In the past 12 months, has t he electric, gas, oil or water company threatened to shut off services in your home? No 11/06/2023 Depression Answer Date Recorded Patient Health Questionnaire-2 Score 2 05/27/2024 Internet Access Answer Date Recorded Internet Access Q1 Yes 11/13/2023 Internet Access Q2 Not on file 11/13/2023 Comments Unknown Sex and Gender Information Value Date Recorded Sex Assigned at Female 01/10/2022 10:20 AM EDT Legal Sex Female 10:20 AM EDT Gender Identity Female 01/10/2022 10:20 AM EDT Sexual Orientation Straight 10/29/2024 1: 15 PM EDT documented as of this encounter Last Filed Vital Signs Vital Sign Reading Time Taken Comments Blood Pressure 127/69 01/13/2025 3:49 PM EST Pulse 76 01/13/2025 3:49 PM EST Temperature - - Respiratory Rate 20 01/13/2025 3:49 PM EST Oxygen Saturation 96% 01/13/2025 3:49 PM EST Inhaled Oxygen Concentration - - Weight 76.2 kg (168 lb) 01/13/2025 3:49 PM EST Height 152.4 cm (5') 01/13/2025 3:49 PM EST Body Mass Index 32.81 01/13/2025 3:49 PM EST documented in this encounter Progress Notes * Regina Soto MD - 01/13/2025 3:45 PM EST SUBJECTIVE Miriam Sena is a 84 y.o. female who presents for Abnormal gait. Miriam Sena, 84-year-old female - Difficulty getting up with legs and walking, able to walk but unable to stand for prolonged periods, ongoing for several months - Receiving monthly vitamin B12 injections - No physical therapy performed Ms Miriam Sena is on vitamin D supplementation. Problem List[1] Allergies[2] Medications Ordered Prior to Encounter[3] Review of Systems Constitutional: Negative for appetite change, chills and diaphoresis. Eyes: Negative for pain, redness and itching. Respiratory: Negative for cough, choking and shortness of breath. Cardiovascular: Negative for leg swelling. Musculoskeletal: Positive for gait problem. OBJECTIVE Vitals: 01/13/25 1549 BP: 127/69 BP Location: Left arm Patient Position: Sitting BP Cuff Size: Adult Pulse: 76 Resp: 20 SpO2: 96% Weight: 168 lb (76.2 kg) Height: 5' (1.524 m) Physical Exam Constitutional: General: She is not in acute distress. Appearance: Normal appearance. She is obese. She is not ill-appearing, toxic- appearing or diaphoretic. Cardiovascular: Rate and Rhythm: Normal rate. Pulmonary: Effort: Pulmonary effort is normal. Neurological: General: No focal deficit present. Mental Status: She is alert. Gait: Gait abnormal. Psychiatric: Mood and Affect: Mood normal. Assessment/Plan Assessment/Plan Diagnoses and all orders for this visit: Gait disturbance - POCT Glucose - POCT Hgb A1c - Vitamin B12/Folate, Serum Panel; Future - Vitamin D, 25-Hydroxy, Total, Immunoassay; Future - CBC auto differential; Future - TSH W/Reflex to FT4; Future - Basic Metabolic Panel; Future - Referral to Neurology; Future - Referral to Physical Therapy; Future - Albumin, Random Urine W/Creatinine; Future - Vitamin B6; Future - Vitamin B1; Future Numbness and tingling of both feet - Albumin, Random Urine W/Creatinine; Future - Vitamin B6; Future - Vitamin B1; Future Encounter for immunization - FLU VACCINE TRIVALENT HIGH DOSE [id number] (Fluzone) 65 yrs + Gait disturbance: - Gait disturbance possibly related to vitamin deficiency and lack of physical therapy. Differential includes vitamin B12 and vitamin D deficiency. - Ordered laboratory tests for vitamin B12 and vitamin D levels. Recommended referral to specialistfor further evaluation. Numbness and tingling of both feet: - Numbness and tingling of both feet may be associated with underlying vitamin deficiency. - Ordered laboratory tests for vitamin B12 and vitamin D levels. Sensation of feet assessed during encounter. Vitamin B12 and vitamin D deficiency evaluation: - Possible vitamin B12 and vitamin D deficiency considered as contributing factors to gait disturbance and neuropathy. - Ordered laboratory tests for vitamin B12 and vitamin D levels. Influenza vaccination: - Influenza vaccination not yet administered for the current year. - Administered influenza vaccine during encounter. Handicap documentation: - Handicap documentation required for patient. - Searched for previously signed paperwork in medical records. Will sign documentation if not already completed. Diagnosis Plan 1. Gait disturbance POCT Glucose POCT Hgb A1c Vitamin B12/Folate, Serum Panel Vitamin D, 25-Hydroxy, Total, Immunoassay CBC auto differential TSH W/Reflex to FT4 Basic Metabolic Panel Referral to Neurology Referral to Physical Therapy Vitamin B12/Folate, Serum Panel Vitamin D, 25-Hydroxy, Total, Immunoassay CBC auto differential TSH W/Reflex to FT4 Basic Metabolic Panel Referral to Neurology Referral to Physical Therapy Albumin, Random Urine W/Creatinine Vitamin B6 Vitamin B1 Albumin, Random Urine W/Creatinine Vitamin B6 Vitamin B1 2. Numbness and tingling of both feet Albumin, Random Urine W/Creatinine Vitamin B6 Vitamin B1 Albumin, Random Urine W/Creatinine Vitamin B6 Vitamin B1 3. Encounter for immunization FLU VACCINE TRIVALENT HIGH DOSE [id number] (Fluzone) 65 yrs + 4. Type 2 diabetes mellitus with other neurologic complication, without long- term current use of insulin (HCC) A1c is acceptable no change in management for now. This note was drafted using Ambient (AI) technology. The patient/patient's guardian has been informed and has consented to the use of this technology: Yes [1] Patient Active Problem List Diagnosis Acquired hypothyroidism Asthma Conductive hearing loss Depressive disorder Diabetes mellitus type 2, uncomplicated (HCC) Hypercholesterolemia Vitamin D deficiency Vitiligo Fatty liver Vitamin B12 deficiency Arthritis of lumbar spine [2] Allergies Allergen Reactions Acetaminophen Albuterol Other reaction(s): trembling Ibuprofen Oxycodone [3] Current Outpatient Medications on File Prior to Visit Medication Sig Dispense Refill albuterol (ProAir HFA) 108 (90 Base) MCG/ACT inhaler inhale 2 puff by inhalation route every 4 - 6 hours as needed Alcohol Sheets (Alcoh-Wipe) sheet Test daily before all meals/snacks and once before bedtime. 1 each 0 Blood Glucose Calibration (OT ULTRA/FASTTK CNTRL SOLN) solution Glucose control solution provides an easy way to ensure accurate blood glucose testing. 1 each 0 Blood Glucose Monitoring Suppl (Accu-Chek Guide) w/Device kit To check the Blood glucose 2 times a day 1 kit 0 Blood Glucose Monitoring Suppl (OneTouch Verio Flex System) w/Device kit TEST BLOOD SUGAR SIX TIMESDAILY 1 kit 0 cholecalciferol (Vitamin D-3) 25 MCG tablet TAKE ONE TABLET BY MOUTH EVERY MORNING (vitamin) 30 tablet 5 cholecalciferol (Vitamin D-3) 25 MCG tablet TAKE ONE TABLET EVERY MORNING (VITAMIN) 30 tablet 11 cyanocobalamin (Vitamin B-12) 1000 MCG/ML injection 1 injection a week x 4 weeks. 1 mL 11 docusate sodium (Colace) 100 MG capsule TAKE ONE CAPSULE EVERY NIGHT AT BEDTIME NEEDED FOR CONSTIPATION 90 capsule 3 DULoxetine (Cymbalta) [address] capsule Take 1 capsule (60 mg) by mouth Once per day. Do not crush or chew. 30 capsule 11 Ferrous Sulfate (iron) 325 (65 Fe) MG tablet TAKE ONE TABLET EVERY MORNING (BLOOD) 30 tablet 5 glimepiride (Amaryl) 2 MG tablet TAKE ONE TABLET THREE TIMES DAILY WITH MEALS 270 tablet 2 glucose blood (OneTouch Ultra Test) test strip To use once a day 100 strip 5 glucose blood test strip To check the blood glucose 2 times a day 100 each 12 Jardiance 10 MG TAKE ONE TABLET EVERY MORNING 30 tablet 11 Lancet Devices (Autolet) lancing device 1 each by Other route 2 times daily. 100 each 11 Lancets (Tooth Bank Delica Plus [id number]) [facility] To use once a day 100 each 11 levothyroxine (Synthroid) 112 MCG tablet Take 1 tablet (112 mcg) by mouth before breakfast. 30 tablet 11 melatonin 5 MG tablet TAKE ONE TABLET EVERY NIGHT AT BEDTIME NEEDED 30 tablet 5 metFORMIN (Glucophage) 1000 MG tablet TAKE ONE TABLET TWICE DAILY IN THE MORNING AND AT BEDTIME (SUGAR) 180 tablet 0 mirtazapine (Remeron) 30 MG tablet TAKE ONE TABLET EVERY NIGHT AT BEDTIME 30 tablet 5 rosuvastatin (Crestor) 10 MG tablet TAKE ONE TABLET EVERY NIGHT AT BEDTIME 90 tablet 0 [DISCONTINUED] Ferrous Sulfate (iron) 325 (65 Fe) MG tablet TAKE ONE TABLET EVERY MORNING (BLOOD) 30 tablet 5 [DISCONTINUED] melatonin 5 MG tablet TAKE ONE TABLET EVERY NIGHT AT BEDTIME NEEDED FOR SLEEP 30 tablet 5 Current Facility-Administered Medications on File Prior to Visit Medication Dose Route Frequency Provider Last Rate Last Admin cyanocobalamin (Vitamin B-12) injection 1,000 mcg 1,000 mcg Intramuscular Weekly Regina Soto MD 1,000 mcg at 01/02/25 1442 documented in this encounter Plan of Treatment Upcoming Encounters Date Type Department Care Team (Late st Contact Info) Description 01/30/2025 1:15 PM EST Nurse Only [facility] [address] [place], [place] [id number] Scheduled Orders Name Type Priority Associated Diagnoses Orde r Schedule Vitamin B12/Folate, Serum Panel Lab Routine Gait disturbance Expected: 01/13/2025, Expires: 01/13/2026 Vitamin D, 25-Hydroxy, Total, Immunoassay Lab Routine Gait disturbance Expected: 01/13/2025 (Approximate), Expires: 01/13/2026 CBC auto differential Lab Routine Gait disturbance Expected: 01/13/2025 (Approximate), Expires: 01/13/2026 TSH W/Reflex to FT4 Lab Routine Gait disturbance Expected: 01/13/2025 (Approximate), Expires: 01/13/2026 Basic Metabolic Panel Lab Routine Gait disturbance Expected: 01/13/2025 (Approximate), Expires: 01/13/2026 Albumin, Random Urine W/Creatinine Lab Routine Gait disturbance Numbness and tingling of both feet Expected: 01/13/2025 (Approximate), Expires: 01/13/2026 Vitamin B6 Lab Routine Gait disturbance Numbness and tingling of both feet Expected: 01/13/2025, Expires: 01/13/2026 Vitamin B1 Lab Routine Gait disturbance Numbness and tingling of both feet Expected: 01/13/2025 (Approximate), Expires: 01/13/2026 Scheduled Referrals Name Type Priority Associated Diagnoses Orde r Schedule Referral to Neurology Outpatient Referral Routine Gait disturbance Expected: 01/13/2025 (Approximate), Expires: 01/13/2026 Referral to Physical Therapy Outpatient Referral Routine Gait disturbance Expected: 01/13/2025 (Approximate), Expires: 01/13/2026 documented as of this encounter Procedures Procedure Name Priority Date/Time Associated Diagnosis Comments POCT GLUCOSE Routine 01/13/2025 4:20 PM EST Gait disturbance POCT GLYCATED HEMOGLOBIN, TOTAL Routine 01/13/2025 4:19 PM EST Gait disturbance documented in this encounter Results * (ABNORMAL) POCT Glucose (01/13/2025 4:20 PM EST) Glucose Blood, POC 330(A) 60 - 200 mg/dL QC Media Lot # [id number] Lot# Expiration Date Comment:random Blood Capillary blood specimen / Unknown 01/13/2025 4:20 PM EST Regina Soto MD POINT OF CARE TEST ENTER/ED IT ORDERABLES Final Result * (ABNORMAL) POCT Hgb A1c (01/13/2025 4:19 PM EST) Hemoglobin A1C 7.1(A) 4.0 - 5.7 % QC Media Lot # [id number] Lot# Expiration Date Blood 01/13/2025 4:19 PM EST Regina Soto MD POINT OF CARE TEST ENTER/ED IT ORDERABLES Final Result documented in this encounter Visit Diagnoses Diagnosis Gait disturbance- Primary Abnormality of gait Numbness and tingling of both feet Encounter for immunization Type 2 diabetes mellitus with other neurologic complication, without long-term current use of insulin (HCC) documented in this encounter Additional Health Concerns Assessment Noted Time PHQ-9 Depression Total Score: 5 05/28/19 25 3:51 PM EDT documented as of this encounter Care Teams Medical Imaging Specialist Relationship Specialty Start Date End Date Regina Soto MD [address] [place] [id number] PCP - General Internal Medicine 03/20/13 documented as of this encounter
--- OUTSIDE RECORDS SUMMARY | 2025-01-14 10:53 | XMS_ITS ---
Author Name Sandoval RANDLEEdith Address [address] [place] [address] Phone [phone] [facility] Care Team Providers [facility]na Name Role Phone Edith Nick Unavailable [phone] BEAUZILE, THEVENIN Unavailable [phone] Reason for Referral Not Available Allergies, adverse reactions, alerts Allergen Type Reaction Severity Status Onset Date Albuterol Allergy to substance (disorder) Unknown Active N/A Ibuprofen Allergy to substance (disorder) Unknown Active N/A Oxycodone Allergy to substance (disorder) Unknown Active N/A History of medication use Medication Class Instructions Start Date End Date Levothyroxine Sodium 112 MCG Tab TAKE ONE TABLET EVERY MORNING (FOR THYROID) 2022-05-25 No Data Available Medbox Status USE DIRECTED 2022-02-21 No Data Diana ilable MELATONIN 5 MG TABLET TAKE ONE TABLET BY MOUTH EVERY NIGHT AT BEDTIME (SLEEP) 2022-04-21 No Data Available Mirtazapine 30 mg Tab TAKE ONE TABLET AT BEDTIME 09-20 No Data Available cholecalciferol (vitamin D3) 25 mcg (1,000 unit) tablet TAKE ONE TABLET BY MOUTH EVERY MORNING (vitamin) 2022-04-21 No Data Available DULoxetine 20 mg Cap delayed rel TAKE ONE CAPSULE EVERY MORNING (MOOD) 2022-06-20 No Data Available FeroSul 325 (65 Fe) MG Tab TAKE ONE TABL ET BY MOUTH EVERY MORNING (BLOOD) 2022-07-18 No Data Available OneTouch Delica Plus [id number] Miscellaneous TEST BLOOD SUGAR SIX TIMES DAILY 2022-01-25 No Data Available OneTouch Ultra Strip TEST BLOOD SUGAR SI X TIMES DAILY 2022-01-25 No Data Available OneTouch Verio Flex System w/Device Kit TEST BLOOD SUGAR SIX TIMES DAILY 2022-06-01 No Data Available Januvia 100 mg Tab TAKE ONE TABLET EVER Y MORNING (SUGAR) 2022-07-21 No Data Available metFORMIN 1000 mg Tab TAKE ONE TABLET TW ICE DAILY IN THE MORNING AND AT BEDTIME (SUGAR) 2022-10-13 No Data Available Rosuvastatin Calcium 10 mg Tab TAKE ONE TABLET EVERY NIGHT AT BEDTIME 2022-10-13 No Data Available Docusate Sodium 100 mg Cap TAKE ONE CAPS ULE EVERY NIGHT AT BEDTIME NEEDED FOR CONSTIPATION 2022-01-20 No Data Available Jardiance 10 mg Tab TAKE ONE TABLET EVER Y MORNING 2023-02-01 No Data Available Cefuroxime Axetil 250 mg Tab TAKE ONE TA BLET EVERY TWELVE HOURS FOR SEVEN DAYS 2024-08-06 No Data Available Cyanocobalamin 1000 MCG/ML Solution INJECT ONE ML INTRAMUSCULARLY ONCE A WEEK 2024-08-30 No Data Available Accu-Chek Guide Me Glucose Meter TEST BLOOD SUGAR TWICE DAILY 2024-12-13 No Data Diana ilable Cranberry 400 mg Tab 1 tablet QD 2024-12-24 No Data Available Problem List Problem Status Onset Date Resolved Date Synopsis Vitamin D deficiency Active 2023-02-23 N/A vit d supplement dailyf/u with pcp annually Conductive hearing loss Active 2023-02-23 N/A F ollows up with audiology.Has hearing aids, but does not like to use them. Stable. Denies any acute complaint. History of hysterectomy Active 2023-10-30 N/A R eports history of complete hysterectomy. Other problems related to medical facilities and other health care Active 2023-10-30 N/A DIABETES CO NTINGENCY PLANMember to call for the following symptoms: Blood sugar >300 / Polydipsia/ Polyuria.Assess current symptoms and treat accordingly. Planned intervention: Encourage adequate water intake/ Elevate legs/ Limit high-sugar and high-carbohydrate foods/ Go for a walk.Assess for medication compliance.Schedule f/u with primary SUE.Follow up with PCP. Acquired hypothyroidism Active 2023-02-23 N/A F ollows up with PCP, Stable. Denies any acute complaint.Taking: Levothyroxine Sodium 112 MCG Tab TAKE ONE TABLET QD Major depressive disorder, recurrent, mild Active 2023-02-23 N/A Follows up with PCP.Stable.Denies any acute complaint.Taking: DULoxetine Mirtazapine MELATONIN Hyperlipidemia associated with type 2 diabetes mellitus Active 2023-02-23 N/A . Stable.a1c 6.0 03/05Denies any acute complaint.Glucose at home: 206 mg/dl. Taking:DM:JanuviaJardiance metFORMIN HL: Rosuvastatin Advised to follow low fat, low carb, heart healthy diet.Continue treatment as prescribed. Follow up with PCP as scheduled.Contact CB 03/10 as needed.Contingency plan in place. Iron deficiency anemia Active 2023-02-23 N/A ir on supplement dailyf/u with pcp annually Occlusion of carotid artery Active 2024-12-24 N/A statinf/u with pcp Vitamin B12 deficiency Active 2024-12-24 N/A b1 2 injection monthlyf/u with pcp annually Encounters Encounters Type Facility Date of Service Diagnosis/Co mplaint New patient,40-59min; chronic exacerbation, 2 stable chronic or 1 acute illness add add modifier 95 for video (do not use for phone, instead use [id number]) [facility]/2023 Type 2 diabetes mellitus wit h other specified complicationHyperlipidemia, unspecifiedMajor depressive disorder, single episode, in full remissionIron deficiency anemia, unspecifiedVitamin D deficiency, unspecifiedConductive hearing loss, unspecifiedHypothyroidism, unspecified New patient,40-59min; chronic exacerbation, 2 stable chronic or 1 acute illness add add modifier 95 for video (do not use for phone, instead use 97282-91) [facility] New patient,40-59min; chronic exacerbation, 2 stable chronic or 1 acute illness add add modifier 95 for video (do not use for phone, instead use 57561-18) [facility] New patient,40-59min; chronic exacerbation, 2 stable chronic or 1 acute illness add add modifier 95 for video (do not use for phone, instead use 20977-60) [facility] New patient,40-59min; chronic exacerbation, 2 stable chronic or 1 acute illness add add modifier 95 for video (do not use for phone, instead use 62135-95) [facility]/20[place] New patient,40-59min; chronic exacerbation, 2 stable chronic or 1 acute illness add add modifier 95 for video (do not use for phone, instead use 92935-99) [facility]/20[place] New patient,40-59min; chronic exacerbation, 2 stable chronic or 1 acute illness add add modifier 95 for video (do not use for phone, instead use [id number]) [facility]/2023 New patient,40-59min; chronic exacerbation, 2 stable chronic or 1 acute illness add add modifier 95 for video (do not use for phone, instead use 71054-95) [facility]23/2023 New patient,40-59min; chronic exacerbation, 2 stable chronic or 1 acute illness add add modifier 95 for video (do not use for phone, instead use 50395-08) [facility] New patient,40-59min; chronic exacerbation, 2 stable chronic or 1 acute illness add add modifier 95 for video (do not use for phone, instead use 77391-46) [facility]/2023 Estab. patient 30-39min; chronic exacerbation, 2 stable chronic or 1 acute illness add add modifier 95 for video, (do not use for phone, instead use 14766-10) [facility]/2023 Type 2 diabetes mellitus wit h other specified complicationHyperlipidemia, unspecifiedIron deficiency anemia, unspecifiedVitamin D deficiency, unspecifiedConductive hearing loss, unspecifiedMajor depressive disorder, recurrent, mildHypothyroidism, unspecifiedAcquired absence of both cervix and uterusOther problems related to medical facilities and other health care Estab. patient 30-39min; chronic exacerbation, 2 stable chronic or 1 acute illness add add modifier 95 for video, (do not use for phone, instead use 44219-60) [facility] [place]20[place] Estab. patient 30-39min; chronic exacerbation, 2 stable chronic or 1 acute illness add add modifier 95 for video, (do not use for phone, instead use [id number]) [facility] [place]/2023 Estab. patient 30-39min; chronic exacerbation, 2 stable chronic or 1 acute illness add add modifier 95 for video, (do not use for phone, instead use 36938-97) [facility] [place]/2023 Estab. patient 30-39min; chronic exacerbation, 2 stable chronic or 1 acute illness add add modifier 95 for video, (do not use for phone, instead use 83205-71) [facility] ([place]) [place]/20[place] Estab. patient 30-39min; chronic exacerbation, 2 stable chronic or 1 acute illness add add modifier 95 for video, (do not use for phone, instead use 00535-49) [facility]20[place] Estab. patient 30-39min; chronic exacerbation, 2 stable chronic or 1 acute illness add add modifier 95 for video, (do not use for phone, instead use 19683-30) [facility] Estab. patient 30-39min; chronic exacerbation, 2 stable chronic or 1 acute illness add add modifier 95 for video, (do not use for phone, instead use 78262-38) [facility]20[place] Estab. patient 10-29min; 1 minor problem; add add modifier 95 for video, modifier 93 for phone [facility] 12/24/2024 Iron deficiency anemia, unspecifiedType 2 diabetes mellitus with other specified complicationHyperlipidemia, unspecifiedMajor depressive disorder, recurrent, mildVitamin D deficiency, unspecifiedConductive hearing loss, unspecifiedHypothyroidism, unspecifiedOcclusion and stenosis of unspecified carotid arteryDeficiency of other specified B group vitaminsOther problems related to medical facilities and other health careAcquired absence of both cervix and uterusLong term (current) use of oral hypoglycemic drugs Estab. patient 10-29min; 1 minor problem; add add modifier 95 for video, modifier 93 for phone [facility] Estab. patient 10-29min; 1 minor problem; add add modifier 95 for video, modifier 93 for phone [facility] Estab. patient 10-29min; 1 minor problem; add add modifier 95 for video, modifier 93 for phone [facility]/20[place] Estab. patient 10-29min; 1 minor problem; add add modifier 95 for video, modifier 93 for [facility]/20[place] Estab. patient 10-29min; 1 minor problem; add add modifier 95 for video, modifier 93 for phone [facility]/20[place] Estab. patient 10-29min; 1 minor problem; add add modifier 95 for video, modifier 93 for phone [facility] 12/[place]/2024 Vital Signs Date of Collection Vitals 2023-02-23 13:33:52 Height - 154.94 cmWe ight - 73.48 kgBody Mass Index (BMI) - 30.61 kg/m2BP Diastolic - 79.0 mm[Hg]BP Systolic - 128.0 mm[Hg]Heart Rate - 85.0 /minPain Scale - 3.0 {score} 2023-10-30 10:02:53 Height - 154.94 cmWe ight - 77.11 kgBody Mass Index (BMI) - 32.12 kg/m2Pain Scale - 0.0 {score} 2024-12-24 09:08:58 Height - 154.94 cmWe ight - 74.84 kgBody Mass Index (BMI) - 31.18 kg/m2Pain Scale - 4.0 {score} Social History Social History Social History Observation Description Effec tive Time Current Smoking Status Never smoker 4 Sex Female History of Procedures Procedures Service Procedure code Service date Servicing provider Phone# New patient,40-59min; chronic exacerbation, 2 stable chronic or 1 acute illness add add modifier 95 for video (do not use for phone, instead use [id number]) 17815 2023-02-23 No Data Available No Data Availa ble Advance care planning discussed and documented in the medical record beneficiary/patient did not wish to or was unable to provide an advance care plan or name a surrogate decision-maker. (1124F) 1124F 2023-02-23 No Data Available No Data Availa ble Functional Status Assessed (1170F) 1170F 2023-02-23 No Data Available No Data Avail able Pain Assessment - Pain Documented on a Pain Scale (1125F) 1125F 2023-02-23 No Data Available No Data Diana ilable Medication List Documented (1159F) 1159F 2023-02-23 No Data Available No Data Diana ilable Medication Review by prescribing provider or pharmacist documented (1160F) 1160F 2023-02-23 No Data Available No Data Diana ilable Advance Care Directive Advance care planning discussion documented in the medical record (1158F) 1158F 2023-02-23 No Data Available No Data Availa ble BMI obtained (3008F) 3008F 2023-02-23 No Data Availab le No Data Available SBP < 130 (3074F) 3074F 2023-02-23 No Data Available No Data Available DBP <80 (3078F) 3078F 2023-02-23 No Data Available No Data Available Estab. patient 30-39min; chronic exacerbation, 2 stable chronic or 1 acute illness add add modifier 95 for video, (do not use for phone, instead use 09169-23) 27927 2023-10-30 No Data Available No Data Availa ble Medication List Documented (1159F) 1159F 2023-10-30 No Data Available No Data Diana ilable Medication Review by prescribing provider or pharmacist documented (1160F) 1160F 2023-10-30 No Data Available No Data Diana ilable Functional Status Assessed (1170F) 1170F 2023-10-30 No Data Available No Data Avail able Pain Assessment - NO pain present (1126F) 1126F 2023-10-30 No Data Available No Data A vailable Advance Care Directive Advance care planning discussion documented in the medical record (1158F) 1158F 2023-10-30 No Data Available No Data Availa ble BMI obtained (3008F) 3008F 2023-10-30 No Data Availab le No Data Available Advance care planning discussed and documented advance care plan or surrogate decision-maker was documented in the medical record. (1123F) 1123F 2023-10-30 No Data Available No Data Availa ble Estab. patient 10-29min; 1 minor problem; add add modifier 95 for video, modifier 93 for phone [id number] 2024-12-24 No Data Available No Data Availa ble Medication List Documented (1159F) 1159F 2024-12-24 No Data Available No Data Diana ilable Medication Review by prescribing provider or pharmacist documented (1160F) 1160F 2024-12-24 No Data Available No Data Diana ilable Functional Status Assessed (1170F) 1170F 2024-12-24 No Data Available No Data Avail able Advance Care Directive Advance care planning discussion documented in the medical record (1158F) 1158F 2024-12-24 No Data Available No Data Availa ble Advance care planning discussed and documented advance care plan or surrogate decision-maker was documented in the medical record. (1123F) 1123F 2024-12-24 No Data Available No Data Availa ble Pain Assessment - Pain Documented on a Pain Scale (1125F) 1125F 2024-12-24 No Data Available No Data Diana ilable Functional Status Functional Category Effective Dates Cognition Status: Mild Cognitive Impairm ent 2024-12-24 ADL: Bathing Needs Assistanc e , Dressing Needs Assistance , Eating Independent , Ambulation Needs Assistance , Transferring Needs Assistance and Toileting Independent 2024-12-24 IADL: Medication Needs Iliana tance , Meal Prep Needs Assistance , Shopping Needs Assistance , Driving or Public Transport Needs Assistance , Housework Needs Assistance , Finances Needs Assistance 2024-12-24 Have you fallen in the past year? 0 2024 Near falls within the last 6 months? 07-20-13 Do you feel unsteady on your feet when s tanding or walking? No 2024-12-24 Are you worried about falling? No 2024- 0-14 DME used with ambulation: [employer] [facility] 2024-12-24 Social Supports - # of Inter actions with Friends/Family in a typical week: daily 2024-12-24 Mental Status Status Date AAOX 3, forgetful 2024-12-24 Assessments Date of Service Assessments 2023-02-23 13:33:52 Iron deficiency anem iaType 2 diabetes mellitus with complication, without long-term current use of insulinHyperlipidemia associated with type 2 diabetes mellitusVitamin D deficiencyConductive hearing lossMajor depressive disorder in remissionAcquired hypothyroidismIron deficiency anemiaType 2 diabetes mellitus with complication, without long-term current use of insulinHyperlipidemia associated with type 2 diabetes mellitusVitamin D deficiencyConductive hearing lossMajor depressive disorder in remissionAcquired hypothyroidism 2023-10-30 10:02:53 Iron deficiency anem iaHyperlipidemia associated with type 2 diabetes mellitusVitamin D deficiencyConductive hearing lossMajor depressive disorder, recurrent, mildAcquired hypothyroidismHistory of hysterectomyOther problems related to medical facilities and other health care 2024-12-24 09:08:58 Iron deficiency anem iaHyperlipidemia associated with type 2 diabetes mellitusVitamin D deficiencyConductive hearing lossMajor depressive disorder, recurrent, mildAcquired hypothyroidismHistory of hysterectomyOther problems related to medical facilities and other health careOcclusion of carotid arteryVitamin B12 deficiency Plan of Care Date of Service Plans 2023-02-23 13:33:52 Medication Review by prescribing provider or pharmacist documented (1160F)Medication List Documented (1159F)Functional Status Assessed (1170F)Advance Care Directive Advance care planning discussion documented in the medical record (1158F)BMI obtained (3008F)SBP < 130 (3074F)DBP <80 (3078F)Televideo new patient,40-59min; chronic exacerbation, 2 stable chronic or 1 acute illness add modifier 95Advance care planning discussed and documented in the medical record beneficiary/patient did not wish to or was unable to provide an advance care plan or name a surrogate decision-maker. (1124F)Pain Assessment - Pain Documented (1125F)Continue to see PCP. Follow-up with [facility] as needed for any acute or disease education needs that may arise.iron supplement dailyf/u with pcp annuallyContinue metformin, januvia, jardianceTest BS daily, check BP daily with automatic bp cuffEat food low in sugar, exercise 30min daily,Follow up with PCP annuallyContinue statinroutine Lipid panelExercise several days per week, if you can. Eat a diet lower in saturated and trans fats. Include lots of fruits, vegetables, beans, nuts, whole grains, and fish regularly into your diet.vit d supplement dailyf/u with pcp annuallyf/u with pcp annuallycontinue duloxetinef/u with pcp annuallycontinue levothyroxine, fasting, no food or medicine for half hour after intakeannual thyroid panelf/u with pcp annuallyiron supplement dailyf/u with pcp annuallyContinue metformin, januvia, jardianceTest BS daily, check BP daily with automatic bp cuffEat food low in sugar, exercise 30min daily,Follow up with PCP annuallyContinue statinroutine Lipid panelExercise several days per week, if you can. Eat a diet lower in saturated and trans fats. Include lots of fruits, vegetables, beans, nuts, whole grains, and fish regularly into your diet.vit d supplement dailyf/u with pcp annuallyf/u with pcp annuallycontinue duloxetinef/u with pcp annuallycontinue levothyroxine, fasting, no food or medicine for half hour after intakeannual thyroid panelf/u with pcp annually 2023-10-30 10:02:53 Televideo 30-39min; chronic exacerbation, 2 stable chronic or 1 acute illness add modifier 95Functional Status Assessed (1170F)Pain Assessment - NO pain documented (1126F)BMI obtained (3008F)Advance Care Directive Advance care planning discussion documented in the medical record (1158F)Advance care planning discussed and documented advance care plan or surrogate decision-maker was documented in the medical record. (1123F)Continue to see PCP. [facility] or disease education needs that may arise.iron supplement dailyf/u with pcp annuallyECCA Update 10/30/2023:Follows up with PCP, next appt 11/2023 for labs and annual exam. Stable.Denies any acute complaint.Glucose at home: 206 mg/dl. Taking:DM:Januvia 100 mg Tab TAKE ONE TABLET EVERY MORNING (SUGAR)Jardiance 10 mg Tab TAKE ONE TABLET EVERY MORNINGmetFORMIN 1000 mg Tab TAKE ONE TABLET TWICE DAILY IN THE MORNING AND AT BEDTIME HL: Rosuvastatin Calcium 10 mg Tab TAKE ONE TABLET EVERY NIGHT AT BEDTIMEAdvised to follow low fat, low carb, heart healthy diet.Continue treatment as prescribed. Follow up with PCP as scheduled.Contact CB 03/10 as needed.Contingency plan in place.vit d supplement dailyf/u with pcp annuallyFollows up with audiology.Has hearing aids, but does not like to use them. Stable. Denies any acute complaint.ECCA Update 10/30/2023:Follows up with PCP.Stable.Denies any acute complaint.Taking: DULoxetine 20 mg Cap delayed rel TAKE ONE CAPSULE EVERY MORNING Mirtazapine 30 mg Tab TAKE ONE TABLET AT BEDTIMEMELATONIN 5 MG TABLET TAKE ONE TABLET BY MOUTH EVERY NIGHTFollows up with PCP, next appt 11/2023 for labs and annual exam. Stable. Denies any acute complaint.Taking: Levothyroxine Sodium 137 MCG Tab TAKE ONE TABLET QDReports history of complete hysterectomy.DIABETES CONTINGENCY PLANMember to call for the following symptoms: Blood sugar >300 / Polydipsia/ Polyuria.Assess current symptoms and treat accordingly. Planned intervention: Encourage adequate water intake/ Elevate legs/ Limit high-sugar and high-carbohydrate foods/ Go for a walk.Assess for medication compliance.Schedule f/u with primary SUE.Follow up with PCP. 2024-12-24 09:08:58 Medication Review by prescribing provider or pharmacist documented (1160F)Medication List Documented (1159F)Functional Status Assessed (1170F)Advance Care Directive Advance care planning discussion documented in the medical record (1158F)sbdbAdvance care planning discussed and documented advance care plan or surrogate decision-maker was documented in the medical record. (1123F)Estab. patient 20-29min; 1 stable chronic or 2 minor; add add modifier 95 for video, modifier 93 for phoneContinue to see PCP. Follow-up with [facility] as needed for any acute or disease education needs that may arise.iron supplement dailyf/u with pcp annually. Stable.a1c 6.0 03/05Denies any acute complaint.Glucose at home: 206 mg/dl. Taking:DM:JanuviaJardiance metFORMIN HL: Rosuvastatin Advised to follow low fat, low carb, heart healthy diet.Continue treatment as prescribed. Follow up with PCP as scheduled.Contact CB 03/10 as needed.Contingency plan in place.vit d supplement dailyf/u with pcp annuallyFollows up with audiology.Has hearing aids, but does not like to use them. Stable. Denies any acute complaint.Follows up with PCP.Stable.Denies any acute complaint.Taking: DULoxetine Mirtazapine MELATONINFollows up with PCP, Stable. Denies any acute complaint.Taking: Levothyroxine Sodium 112 MCG Tab TAKE ONE TABLET QDReports history of complete hysterectomy.DIABETES CONTINGENCY PLANMember to call for the following symptoms: Blood sugar >300 / Polydipsia/ Polyuria.Assess current symptoms and treat accordingly. Planned intervention: Encourage adequate water intake/ Elevate legs/ Limit high-sugar and high-carbohydrate foods/ Go for a walk.Assess for medication compliance.Schedule f/u with primary SUE.Follow up with PCP.statinf/u with pcpb12 injection monthlyf/u with pcp annually Goals Date Goal 2023-02-23 1. Take all medicati on on time and try to eat healthy2. Call if you have questions or concerns before you go to the ER.3. Remember to keep all appointments with your PCP.4. Discussed how to contact [facility] via phone or tablet. 2023-10-30 Remember to keep all appointments with your PCP and specialists. Call CB 03/10 if you have questions or concerns. Discussed how to contact [facility] via phone or tablet. 03/10 phone number provided. 2024-12-24 pain Health Concerns Date Concern 2024-12-24 Patient/Guardian agr eed to visit via telehealth. Today, patient has chief complaint of: annual visit.Visit completed via:[x] audio and video; [ ] audio onlyInformed verbal consent was obtained from this patient to communicate and provide care using virtual and other telecommunications tools. This patient has been explained the risks, if any, related to the encounter. I explained that care provided through video or audio communication cannot replace the need for physical examination or an in-person visit for some disorders or urgent problems. 2024-12-24 Concerns for today's visit:No acute concerns or needs.Reviewed allergies, medications, active medical conditions, past medical and surgical history, social history. 2024-12-24 Most recent hospital stay or ER visit:No ER visits or hospitalizations documented in [facility] in last year.Member denies ER visits or hospitalizations in last year.Discussed our goal of helping the member have more days at home rather than in the ER or the hospital. 2024-12-24 Open HEDIS Measures: reviewedNo open measures 2024-12-24 Advance Care Plandima wade ConversationAdvance Care Planning ConversationDate of Conversation: 12/24/2024Life Limiting Diagnosis: Diagnosis:Currently on Hospice NoCode Status: YES CPR: Attempt ResuscitationGoals of Care: Yes to CPR and Curative Treatments: Attempt to sustain life by all medically effective meansNutrition goals: Feeding through new or existing surgically placed tube is okDo you have a Durable Power of Vp Software Engineering for Healthcare, or Healthcare Proxy Or Guardianship? Yes, POAIf so, Who? dtr Francisca is hcpDo you have a written Advance Directive? Has Advance DirectiveOther details of discussion:Today's plan: Advised patient to discuss wishes with [id number] : AD or surrogate was documented in the medical record.
--- OUTSIDE RECORDS SUMMARY | 2025-01-14 10:54 | XMS_ITS | Encounter Summary ---
Author Organization [facility] Address [address] [place] [address] [address] [place] [address] Care Team Providers Care Assistant Corporation Counsel Name Role Phone Regina Soto MD Primary Care Provider [phone] Reason for Visit * Reason Comments Med Refill Encounter Details Date Type Department Care Team ([facility] Contact Info) Description 12/20/2022 Refill [facility] MED & PEDS [address], [place] [phone] Regina Soto MD [address] [place], [place] [phone] Hypothyroidism, unspecified Social History Tobacco Use Types Packs/Day Years Used Date Smoking Tobacco: Never Assessed Comments Unknown Sex and Gender Information Value Date Recorded Sex Assigned at Female 01/10/2022 10:20 AM EDT Legal Sex Female 10:20 AM EDT Gender Identity Female 01/10/2022 10:20 AM EDT Sexual Orientation Straight 10/29/2024 1: 15 PM EDT documented as of this encounter Plan of Treatment Upcoming Encounters Date Type Department Care Team (Late Contact Info) Description 01/30/2025 1:15 PM EST Nurse Only [facility] MED & PEDS [address] [place] [address] documented as of this encounter Visit Diagnoses Diagnosis Hypothyroidism, unspecified documented in this encounter Care Teams Assistant Corporation Counsel Relationship Specialty Start Date End Date Regina Soto MD [address] [place] [address] PCP - General Internal Medicine 03/20/13 documented as of this encounter
--- OUTSIDE RECORDS SUMMARY | 2025-01-14 10:54 | XMS_ITS | Clinical Summary ---
Author Organization [employer] Address [address] [facility] 7t [place] [address] Care Team Providers Care Bumper Machine Operator Name Role Phone Regina Soto MD Primary Care Provider [phone] Allergies Active Allergy Reactions Criticality Noted Date Comments Acetaminophen 07/27/2011 Albuterol 04/09/2010 Other reaction(s): trembling Ibuprofen 07/27/2011 Oxycodone 07/27/2011 Medications albuterol (ProAir HFA) 108 (90 Base) MCG/ACT inhaler inhale 2 puff by inhalation route every 4 - 6 hours as needed 020 Active Blood Glucose Calibration (OT ULTRA/FASTTK CNTRL SOLN) solution Glucose control solution provides an easy way to ensure accurate blood glucose testing. 1 each 023 Active Alcohol Sheets (Alcoh-Wipe) sheet Test daily before all meals/snacks and once before bedtime. 1 each 023 Active glimepiride (Amaryl) 2 MG tablet TAKE ONE TABLET THREE TIMES DAILY WITH MEALS 270 tablet 2 023 Active cholecalciferol (Vitamin D-3) 25 MCG tabletIndications :Vitamin D deficiency TAKE ONE TABLET BY MOUTH EVERY MORNING (vitamin) 30 tablet 5 023 Active Blood Glucose Monitoring Suppl (Struttauch Verio Flex System) w/Device kit TEST BLOOD SUGAR SIX TIMES DAILY 1 kit 024 Active Jardiance 10 MGIndications:Typ e 2 diabetes mellitus without complication, without long-term current use of insulin (HCC) TAKE ONE TABLET EVERY MORNING 30 tablet 11 024 Active cholecalciferol (Vitamin D-3) 25 MCG tabletIndications :Vitamin D deficiency TAKE ONE TABLET EVERY MORNING (VITAMIN) 30 tablet 11 Active docusate sodium (Colace) 100 MG capsule TAKE ONE CAPSULE EVERY NIGHT AT BEDTIME NEEDED FOR CONSTIPATION 90 capsule 3 Active glucose blood (OneTouch Ultra Test) test strip To use once a day 100 strip 5 Active Lancets (OneTouch Delica Plus Anyfem50Y) misc To use once a day 100 each Active DULoxetine (Cymbalta) [address] capsuleIndication s:Depressive disorder Take 1 capsule (60 mg) by mouth Once per day. Do not crush or chew. 30 capsule 025 2025 Active levothyroxine (Synthroid) 112 MCG tabletIndications :Acquired hypothyroidism Take 1 tablet (112 mcg) by mouth before breakfast. 30 tablet 025 2025 Active cyanocobalamin (Vitamin B-12) 1000 MCG/ML injectionIndicati ons:Vitamin B12 deficiency 1 injection a week x 4 weeks. 1 mL Active metFORMIN (Glucophage) 1000 MG tablet TAKE ONE TABLET TWICE DAILY IN THE MORNING AND AT BEDTIME (SUGAR) 180 tablet Active rosuvastatin (Crestor) 10 MG tablet TAKE ONE TABLET EVERY NIGHT AT BEDTIME 90 tablet Active mirtazapine (Remeron) 30 MG tabletIndications :Moderate episode of recurrent major depressive disorder (CMS/HCC) (HCC) TAKE ONE TABLET EVERY NIGHT AT BEDTIME 30 tablet Active Lancet Devices (Autolet) lancing device 1 each by Other route 2 times daily. 100 each 11 025 2025 Active glucose blood test strip To check the blood glucose 2 times a day 100 each 025 2025 Active Blood Glucose Monitoring Suppl (Accu-Chek Guide) w/Device kit To check the Blood glucose 2 times a day 1 kit Active Ferrous Sulfate (iron) 325 (65 Fe) MG tabletIndications :Iron deficiency anemia, unspecified TAKE ONE TABLET EVERY MORNING (BLOOD) 30 tablet 5 Active melatonin 5 MG tabletIndications :Primary insomnia TAKE ONE TABLET EVERY NIGHT AT BEDTIME NEEDED 30 tablet 5 025 Active Ferrous Sulfate (iron) 325 (65 Fe) MG tabletIndications :Iron deficiency anemia, unspecified TAKE ONE TABLET EVERY MORNING (BLOOD) 30 tablet 5 025 2024 Discontinued melatonin 5 MG tabletIndications :Primary insomnia TAKE ONE TABLET EVERY NIGHT AT BEDTIME NEEDED FOR SLEEP 30 tablet 5 025 2024 Discontinued Hospital, Clinic, or Other Facility Administered Medication Ordered Dose Route Frequency Start Date End Date Status cyanocobalamin (Vitamin B-12) injection 1,000 mcgIndications:Vitamin B12 deficiency 1000 mcg IM Weekly 01/09/2024 Active Active Problems Problem Noted Date Diagnosed Date Arthritis of lumbar spine 01/06/2025 Fatty liver 01/08/2024 Vitamin B12 deficiency 01/08/2024 Asthma 04/05/2021 Hypercholesterolemia 12/18/2014 Vitiligo 03/18/2013 Diabetes mellitus type 2, uncomplicated 08/15/19 13 Vitamin D deficiency 08/09/2011 Conductive hearing loss 07/27/2011 Depressive disorder 07/27/2011 Acquired hypothyroidism 01/06/2011 Encounters Date Type Department Care Team Description 01/14/2025 Refill [facility] MED & PEDS [address] [place] [address] Sang Reyez MD 01/13/2025 3:45 PM EST Office Visit [facility] MED & PEDS [address] [place] [address] Regina Soto MD Gait disturbance (Primary Dx); Numbness and tingling of both feet; Encounter for immunization; Type 2 diabetes mellitus with other neurologic complication, without long-term current use of insulin ([facility]) 01/13/2025 Travel 01/06/2025 Refill [facility] MED & PEDS [address] [place] [address] Regina Soto MD Iron deficiency anemia, unspecified; Primary insomnia 01/02/2025 1:30 PM EDT Clinical Support [facility] MED & PEDS [address] [place] [address] Nely Grover RN Vitamin B12 deficiency 01/02/2025 Travel 12/12/2024 Refill [facility] MED & PEDS [address] [facility] [place] [address] Regina Soto MD 12/05/2024 1:30 PM EDT Clinical Support [facility] MED [facility]ED[facility] [address] [facility] [place] [address] Nely Grover RN Vitamin B12 deficiency 12/05/2024 Travel 12/01/2024 Refill [facility] MED [facility] PEDS [address] [facility] [place] [place] [address] Regina Soto MD Moderate episode of recurrent major depressive disorder ([facility]) 11/05/2024 1:30 PM EDT Clinical Support [facility] [address] [facility] [place] [address] Nely Grover RN Vitamin B12 deficiency 11/05/2024 Travel 10/29/2024 1:30 PM EDT Clinical Support [facility] [address] [facility] [place] [address] Nely Grover RN Vitamin B12 deficiency 10/29/2024 Travel 10/22/2024 1:30 PM EDT Clinical Support [facility] [address] [facility] [place] [address] Nely Grover RN Vitamin B12 deficiency [E53.8] 10/22/2024 Travel 10/15/2024 2:15 PM EDT Clinical Support [facility] MED [facility] PED[facility] [address] [facility] [place] [address] Nely Grover RN Vitamin B12 deficiency 10/15/2024 Travel from Last 3 Months Immunizations Immunization Administration Dates Next Due Influenza High-dose Quadrivalent Preservative Fr ee 02/01/2023,02/21/2020 Influenza injectable quadrivalent preservative f ree 04/05/2021 Influenza, High Dose Seasonal, Preservative Free 01/13/2025,01/08/2024 Pfizer Covid-19 Vaccine 12+ 12/08/2020 Pneumococcal Conjugate PCV 20 11/15/2023 Pneumococcal Polysaccharide PPSV23 11/03/2011 Tdap 11/15/2023,08/14/2012 Zoster, Recombinant 09/06/2021,06/15/2021 Social History Tobacco Use Types Packs/Day Years Used Date Smoking Tobacco: Never Smokeless Tobacco: Never Tobacco Cessation:Counseling Given: No Alcohol Answer Date Recorded How often do [...] is your housing situation today? I have judie huerta 11/06/[address] you [...] Orientation Straight 10/29/2024 1: 15 PM EDT Last Filed Vital Signs Vital Sign Reading Time Taken Comments Blood Pressure 127/69 01/13/2025 3:49 PM EST Pulse 76 01/13/2025 3:49 PM EST Temperature 36.6 C (97.8 F) 08/30/2024 2:37 PM EDT Respiratory Rate 20 01/13/2025 3:49 PM EST Oxygen Saturation 96% 01/13/2025 3:49 PM EST Inhaled Oxygen Concentration - - Weight 76.2 kg (168 lb) 01/13/2025 3:49 PM EST Height 152.4 cm (5') 01/13/2025 3:49 PM EST Body Mass Index 32.81 01/13/2025 3:49 PM EST Plan of Treatment Upcoming Encounters Date Type Department Care Team (Late st Contact Info) Description 01/30/2025 1:15 PM EST Nurse Only [facility] CHC MED & PEDS [address] [place] [address] Health Maintenance Due Date Last Done Comments Eye Exam 06/29/1950 Hepatitis A Vaccines (1 of 2 - Risk 2-dose series) 1960 Hepatitis B Vaccines (1 of 3 - Risk 3-dose series) 2001 RSV Patients and Patients Aged 60 years or older (1 - 1-dose 75+ series) 2016 Diabetes: Urine Protein Screening 02/02/2024 02/01/2023 SDOH Screening 11/05/2024 11/06/2023 COVID-19 Vaccine ( season) 2024 12/08/2020, 05/13/2020, 04/21/2020 Lipid Panel 11/14/2024 11/15/2023, 01/12, 04/05/2021, Additional history exists Diabetes: Hemoglobin A1C 04/15/2025 025, 03/01/2024, 11/15/2023, Additional history exists Alcohol/Substance Use Screening 05/27/2025 05/27/2024 Depression Screening 05/27/2025 05/27/2024, 05/28/19 25 Diabetes: Foot Exam 01/13/2026 01/13/2025, 02/01/2023, 02/01/2023, Additional history exists Tobacco Screening 01/13/2026 01/13/2025 DTaP/Tdap/Td Vaccines (3 - Td or Tdap) 11/14/2033 11/15/2023, 08/14/2012 Zoster Vaccines Completed 09/06/2021, 06/15/2021 Pneumococcal Vaccine: 50+ Years Completed 11/15/2023, 11/03/2011 Influenza Vaccine Completed 01/13/2025, , 02/01/2023, Additional history exists HIB Vaccines Aged Out No longer eligi ble based on patient's age to complete this topic HPV Vaccines Aged Out No longer eligi ble based on patient's age to complete this topic IPV Vaccines Aged Out No longer eligi ble based on patient's age to complete this topic Meningococcal B Vaccine Aged Out No l onger eligible based on patient's age to complete this topic Meningococcal Vaccine Aged Out No ion ron eligible based on patient's age to complete this topic RSV under 20 months Aged Out No longe r eligible based on patient's age to complete this topic Rotavirus Vaccines Aged Out No longer eligible based on patient's age to complete this topic Procedures Procedure Name Priority Date/Time Associated Diagnosis Comments POCT GLUCOSE Routine 01/13/2025 4:20 PM EST Gait disturbance POCT GLYCATED HEMOGLOBIN, TOTAL Routine 01/13/2025 4:19 PM EST Gait disturbance LIPID PANEL, STANDARD Routine 11/15/2023 11:04 AM EDT Hypercholesterolemia ALBUMIN, RANDOM URINE W/CREATININE Routine 02/01/2023 9:40 AM EST from Last 3 Months or Most Recently Relevant to Health Maintenance Results * (ABNORMAL) POCT Glucose (01/13/2025 4:20 [...] Media Lot # [id number] Lot# Expiration Date [id number] Blood 01/13/2025 4:19 PM EST us Regina Soto MD POINT OF CARE TEST ENTER/ED IT ORDERABLES Final Result * (ABNORMAL) Lipid Panel, Standard (11/15/2023 11:04 AM EDT) Triglycerides 185(H) <150 mg/dL [facility] Comment:Desirable Triglyceri de: less than 150 mg/dLBorderline High Triglyceride 150-199 mg/dLHigh Triglyceride: 200-499 mg/dLVery High Triglyceride: greater than or equal to 5OO mg/dL Cholesterol 171 <200 mg/dL [facility] Comment:Desirable Cholestero l: less than 200 mg/dLBorderline High Cholesterol: 200-239 mg/dLHigh Cholesterol: greater than 239 mg/dL LDL Cholesterol Calculated 74 <100 mg/dL [facility] Comment:Desirable LDL: less than 100 mg/dLNear Optimal/Above Optimal LDL: 110- 129 mg/dLBorderline High LDL: 130-159 mg/dLHigh LDL: 160-189 mg/dLVery High LDL: greater than or equal to 190 mg/dL HDL Cholesterol 60 >40 mg/dL [facility] Comment:Desirable HDL: great er than 40 mg/dL Note: This HDL assay may give artificially low results in patients with liver disease. Blood Venous blood specimen / Unknown 11/15/2023 11:04 AM EDT 11/15/2023 2:23 PM EDT us Regina Soto MD LAB BLOOD ORDERABLES Final Result [facility] [address] [place] [phone] * Albumin, Random Urine W/Creatinine (02/01/2023 9:40 AM EST) Creatinine, Urine 146.85 mg/dL [facility] Microalbumin Urine 12.0 mg/L [facility] Microalbum Creatinine Ratio Ur 8.1 <30 ug/mg cr [facility] Comment:Albumin/Creatinine R atio Reference Ranges: Normal: < 30 ug/mg creatinine Microalbuminuria: 30 - 300 ug/mg creatinineClinical Albuminuria: > 300 ug/mg creatinine 02/01/2023 9:40 AM EST 02/01/2023 2:32 PM EST us Regina Soto MD LAB URINE ORDERABLES Final Result Performing Organization Address City/State/[facility] Co de Phone Number [facility] [address] [place] [address] [phone] from Last 3 Months or Most Recently Relevant to Health Maintenance Insurance [employer] [facility] STANDARD Care Teams Bumper Machine Operator Relationship Specialty Start Date End Date Regina Soto MD [address] [place] [phone] PCP - General Internal Medicine 03/20/13
--- OUTSIDE RECORDS SUMMARY | 2025-01-14 10:54 | XMS_ITS | Encounter Summary ---
Author Organization [facility] Address [address] [facility] 7 [place] [address] Care Team Providers Care Aviation Safety Equipment Technician Name Role Phone Regina Soto MD Primary Care Provider [phone] Encounter Details Date Type Department Care Team (Late st Contact Info) Description 07/21/2022 Orders Only [facility] MED & PEDS [address] [place] [address] Ramya Delcid LPN Social History Tobacco Use Types Packs/Day Years [...] Description 01/30/2025 1:15 PM EST Nurse Only [facility] MED & PEDS [address] [place] [address] documented as of this encounter Visit Diagnoses Not on filedocumented in this encounter Care Teams Aviation Safety Equipment Technician Relationship Specialty Start Date End Date Regina Soto MD [address] [place] [address] PCP - General Internal Medicine 03/20/13 documented as of this encounter
--- OUTSIDE RECORDS SUMMARY | 2025-01-14 10:54 | XMS_ITS | Encounter Summary ---
Author Organization [employer] Address [address] [facility] 7t [place] [address] Care Team Providers Care Learning And Development Intern Name Role Phone Regina Soto MD Primary Care Provider [phone] Encounter Details Date Type Department Care Team ([facility] st Contact Info) Description 08/06/2024 Orders Only [facility] CHC MED & PEDS [address] [place], [place] [phone] Regina Soto MD [address] [place] [address] Social History Tobacco Use Types Packs/Day Years [...] Upcoming Encounters Date Type Department Care Team ([facility] st Contact Info) Description 01/30/2025 1:15 PM EST Nurse Only [facility] MED & PEDS [address] [place] [address] documented as of this encounter Procedures Procedure Name Priority Date/Time Associated Diagnosis Comments CULTURE, URINE, ROUTINE Routine 08/06/2024 12:00 AM EDT documented in this encounter Results * Culture, Urine, Routine (08/06/2024 12:00 AM EDT) Urine Urine specimen obtained by clean catch procedure / Unknown 08/06/2024 08/06/2024 Comment:[facility] Narrative [facility] - 08/08/2024 8:12 AM EDT Escherichia coli Quant > 100,000 cfu/mL Escherichia coli: Ampicillin <=2(S) Escherichia coli: Cefazolin (Urine) <=1(S) Escherichia coli: Cefepime <=0.12(S) Escherichia coli: Ceftriaxone <=0.25(S) Escherichia coli: Ciprofloxacin 0.12(S) Escherichia coli: Gentamicin <=1(S) Escherichia coli: Nitrofurantoin <=16(S) Escherichia coli: Trimethoprim/Sulfamethoxazole <=20(S) Specimen Source: Urine clean catch us Generic External Data Provider LAB MICROBIOLOGY - GENERAL ORDERABLES Final Result [facility] [address] [place] [address] [phone] documented in this encounter Visit Diagnoses Not on filedocumented in this encounter Additional Health Concerns Assessment Noted Time PHQ-9 Depression Total Score: 5 05/28/19 25 3:51 PM EDT documented as of this encounter Care Teams Learning And Development Intern Relationship Specialty Start Date End Date Regina Soto MD [address] [place] [phone] PCP - General Internal Medicine 03/20/13 documented as of this encounter
--- OUTSIDE RECORDS SUMMARY | 2025-01-14 10:54 | XMS_ITS | Encounter Summary ---
Author Organization [employer] Address [address] [facility] 7t [place] [address] Care Team Providers Care Diamond Cutter Name Role Phone Regina Soto MD Primary Care Provider [phone] Reason for Visit * Reason Comments Med Refill Encounter Details Date Type Department Care Team ([facility] st Contact Info) Description 07/24/2024 Refill [facility] MED & PEDS [address] [place], [place] [phone] Regina Soto MD [address] [place], [place] [phone] Social History Tobacco Use Types Packs/Day Years [...] your housing situation today? I have judie bradley 11/06/[address] you li [...] Description 01/30/2025 1:15 PM EST Nurse Only [facility] [address] [place] [address] documented as of this encounter Visit Diagnoses Not on filedocumented in this encounter Additional Health Concerns Assessment Noted Time PHQ-9 Depression Total Score: 5 05/28/19 25 3:51 PM EDT documented as of this encounter Care Teams Diamond Cutter Relationship Specialty Start Date End Date Regina Soto MD [address] [place] [address] PCP - General Internal Medicine 03/20/13 documented as of this encounter
--- OUTSIDE RECORDS SUMMARY | 2025-01-14 10:54 | XMS_ITS | Encounter Summary ---
Author Organization [employer] Address [address] [facility] 7t [place] [address] Care Team Providers Care Work Environment Safety Inspector Name Role Phone Regina Soto MD Primary Care Provider [phone] Encounter Details Date Type Department Care Team ([facility] st Contact Info) Description 05/03/2024 Orders Only [facility] CH[facility] MED & PEDS [address] [place], [place] [phone] Regina Soto MD [address] [place] [address] Social History Tobacco Use Types Packs/Day Years Used Date Smoking Tobacco: Never Smokeless Tobacco: Never Housing Stability Answer Date Recorded What is [...] off services in your home? No 11/06/2023 Internet Access Answer Date Recorded Internet Access [...] Upcoming Encounters Date Type Department Care Team ([facility] st Contact Info) Description 01/30/2025 1:15 PM EST Nurse Only [facility] MED & PEDS [address] [place] [address] documented as of this encounter Visit Diagnoses Not on filedocumented in this encounter Care Teams Work Environment Safety Inspector Relationship Specialty Start Date End Date Regina Soto MD [address] [place] [address] PCP - General Internal Medicine 03/20/13 documented as of this encounter
--- OUTSIDE RECORDS SUMMARY | 2025-01-14 10:54 | XMS_ITS | Encounter Summary ---
Author Organization [employer] Address [address] [facility] 7 [place] [address] Care Team Providers Care Special Education Professor Name Role Phone Regina Soto MD Primary Care Provider [phone] Reason for Visit * Reason Comments Med Refill Encounter Details Date Type Department Care Team ([facility] Contact Info) Description 03/18/2022 Refill [facility] [address] [place], [place] [phone] Sang Reyez MD [address] [place], [place] [phone] Anxiety (Primary Dx) Social History Tobacco Use [...] Description 01/30/2025 1:15 PM EST Nurse Only [facility] MED & PEDS [address] [place], [place] [phone] documented as of this encounter Visit Diagnoses Diagnosis Anxiety- Primary Anxiety state, unspecified documented in this encounter Care Teams Special Education Professor Relationship Specialty Start Date End Date Regina Soto MD [address] [place], [place] [phone] PCP - General Internal Medicine 03/20/13 documented as of this encounter
--- OUTSIDE RECORDS SUMMARY | 2025-01-14 10:54 | XMS_ITS | Encounter Summary ---
Author Organization [employer] [facility] Address [address] [facility] 7t [place] [address] Care Team Providers Care Hot Top Liner Name Role Phone Regina Soto MD Primary Care Provider [phone] Encounter Details Date Type Department Care Team (Late st Contact Info) Description 10/13/2022 Orders Only [facility] MED & PEDS [address] [place] [address] Lexy Mallory LPN Social History Tobacco Use Types Packs/Day [...] 01/30/2025 1:15 PM EST Nurse Only [facility] MED & PEDS [address] [place] [address] documented as of this encounter Visit Diagnoses Not on filedocumented in this encounter Care Teams Hot Top Liner Relationship Specialty Start Date End Date Regina Soto MD [address] [place] [address] PCP - General Internal Medicine 03/20/13 documented as of this encounter
--- OUTSIDE RECORDS SUMMARY | 2025-01-14 10:54 | XMS_ITS | Encounter Summary ---
Author Organization [employer] Address 75 [facility] 7 [place] [address] Care Team Providers Care Supervisor Wet Room Name Role Phone Regina Soto MD Primary Care Provider [phone]- [phone] Reason for Referral * Consultation (Routine) - Closed Specialty Diagnoses / Procedures Referred By Suzan matthews Referred To Contact Vascular Surgery Diagnoses Occlusion of carotid artery, unspecified laterality Regina Soto MD [address] [place] [address] Phone: tel: fax: Davi Santos MD [address] [place] [address] Phone: tel: fax: Referral ID Status Reason Start Date Expiration Date V isits Requested Visits Authorized [id number] Closed Specialty Services Required 09/02/2024 09/02/2025 1 1 Encounter Details Date Type Department Care Team (Late st Contact Info) Description 09/02/2024 Orders Only [facility] CHC MED & PEDS [address] [place], [place] [phone] Regina Soto MD [address] [place], [place] [phone] Occlusion of carotid artery, unspecified laterality (Primary Dx) Social History Tobacco Use Types [...] 01/30/2025 1:15 PM EST Nurse Only [facility] CHC MED & PEDS [address] [place] [address] Pending Results Name Type Priority Associated Diagnoses Date /Time Referral to Vascular Surgery Outpatient Referral Routine Occlusion of carotid artery, unspecified laterality 10/30/2024 Scheduled Referrals Name Type Priority Associated Diagnoses Orde r Schedule Referral to Vascular Surgery Outpatient Referral Routine Occlusion of carotid artery, unspecified laterality Expected: 09/02/2024 (Approximate), Expires: 09/02/2025 documented as of this encounter Visit Diagnoses Diagnosis Occlusion of carotid artery, unspecified laterality- Primary documented in this encounter Additional Health Concerns Assessment Noted Time PHQ-9 Depression Total Score: 5 05/28/19 25 3:51 PM EDT documented as of this encounter Care Teams Supervisor Wet Room Relationship Specialty Start Date End Date Regina oSto MD [address] [place] [address] PCP - General Internal Medicine 03/20/13 documented as of this encounter
--- OUTSIDE RECORDS SUMMARY | 2025-01-14 10:54 | XMS_ITS | Encounter Summary ---
Author Organization [employer] Address 75 [facility] 7t [place] [address] Care Team Providers Care Building Trades Teacher Name Role Phone Regina Soto MD Primary Care Provider [phone] Reason for Visit * Reason Comments Med Refill Encounter Details Date Type Department Care Team ([facility] st Contact Info) Description 01/14/2025 Refill [facility] CHC MED & PEDS [address] [place], [place] [phone] Sang Reyez MD [address] [place], [place] [phone] Social History Tobacco Use Types Packs/Day Years [...] Description 01/30/2025 1:15 PM EST Nurse Only [facility] MED & PEDS [address] [place] [address] documented as of this encounter Visit Diagnoses Not on filedocumented in this encounter Additional Health Concerns Assessment Noted Time PHQ-9 Depression Total Score: 5 05/28/19 25 3:51 PM EDT documented as of this encounter Care Teams Building Trades Teacher Relationship Specialty Start Date End Date Regina Soto MD [address] [place] [address] PCP - General Internal Medicine 03/20/13 documented as of this encounter
--- OUTSIDE RECORDS SUMMARY | 2025-01-14 10:54 | XMS_ITS | Encounter Summary ---
Author Organization [facility] Address [address] [place] [address] 7 [place] [address] Care Team Providers Care Line Haul Owner Operator Name Role Phone Regina Soto MD Primary Care Provider [phone]- [phone] Reason for Visit * Reason Comments Med Refill Encounter Details Date Type Department Care Team ([facility] Contact Info) Description 01/20/2023 Refill [facility] MED & PEDS 505 [place] [address] Regina Soto MD [address] [place] [address] Social History Tobacco Use Types Packs/Day Years [...] Upcoming Encounters Date Type Department Care Team ([facility] Contact Info) Description 01/30/2025 1:15 PM EST Nurse Only [facility] CHC MED & PEDS [address] [place] [address] documented as of this encounter Visit Diagnoses Not on filedocumented in this encounter Care Teams Line Haul Owner Operator Relationship Specialty Start Date End Date Regina Soto MD [address] [place] [address] PCP - General Internal Medicine 03/20/13 documented as of this encounter
--- OUTSIDE RECORDS SUMMARY | 2025-01-14 10:54 | XMS_ITS | Encounter Summary ---
Author Organization [employer] Address 75 [facility] 7t [place] [address] Care Team Providers Care Newspaper Or Periodical Editor Name Role Phone Regina Soto MD Primary Care Provider [phone] Encounter Details Date Type Department Care Team ([facility] st Contact Info) Description 02/05/2024 Orders Only [facility] CHC MED & PEDS [address] [place], [place] [phone] Regina Soto MD 505 [place], [place] [phone] Acquired hypothyroidism (Primary Dx) Social History Tobacco Use Types [...] Upcoming Encounters Date Type Department Care Team ([facility] Contact Info) Description 01/30/2025 1:15 PM EST Nurse Only [facility] MED & PEDS [address] [place] [address] Scheduled Orders Name Type Priority Associated Diagnoses Orde r Schedule TSH W/Reflex to FT4 Lab Routine Acquired hypothyroidism Expected: 02/05/2024 (Approximate), Expires: 02/04/2025 documented as of this encounter Visit Diagnoses Diagnosis Acquired hypothyroidism- Primary Unspecified hypothyroidism documented in this encounter Care Teams Newspaper Or Periodical Editor Relationship Specialty Start Date End Date Regina Soto MD [address] [place] [address] PCP - General Internal Medicine 03/20/13 documented as of this encounter
--- OUTSIDE RECORDS SUMMARY | 2025-01-14 10:54 | XMS_ITS | Encounter Summary ---
Author Organization [employer] Address [address] [facility] [address] 7t [place] [address] Care Team Providers Care Polisher Numeral Name Role Phone Regina Soto MD Primary Care Provider [phone] Encounter Details Date Type Department Care Team (Latest Contact Info) Description 01/13/2025 Travel Social History Tobacco Use Types Packs/Day Years [...] Upcoming Encounters Date Type Department Care Team ([facility] st Contact Info) Description 01/30/2025 1:15 PM EST Nurse Only [facility] CHC MED & PEDS [address] [place] [address] documented as of this encounter Visit Diagnoses Not on filedocumented in this encounter Additional Health Concerns Assessment Noted Time PHQ-9 Depression Total Score: 5 05/28/19 25 3:51 PM EDT documented as of this encounter Care Teams Polisher Numeral Relationship Specialty Start Date End Date Regina Soto MD [address] [place] [address] PCP - General Internal Medicine 03/20/13 documented as of this encounter
--- OUTSIDE RECORDS SUMMARY | 2025-01-14 10:54 | XMS_ITS | Clinical Summary ---
Author Organization [facility] it Address [address] [place] [address] Care Team Providers Care Hardwood Sawyer Name Role Phone Unavailable Primary Care Provider Unavailabl e Social History Tobacco Use Types Packs/Day Years Used Date Smoking Tobacco: Never Assessed Comments Unknown Sex and Gender Information Value Date Recorded Sex Assigned at Not on file Legal Sex Female 7:32 PM EST Gender Identity Not on file Sexual Orientation Not on file Plan of Treatment Health Maintenance Due Date Last Done Comments DTaP,Tdap,and Td Vaccines (1 - Tdap) 1959 Pneumococcal Vaccine: 50+ Ye ars (1 of 1 - PCV) 06/29/1991 Zoster Vaccines (1 of 2) 06/29/1991 RSV Immunization Adult Patie nts (1 - 1-dose 75+ series) 2016 Depression Screening 03/13/2024 COVID-19 Vaccine (1 - 2023-2 5 season) 2024 Influenza Vaccine (#1) 2024 HIB Vaccines Aged Out No longer eligi ble based on patient's age to complete this topic HPV Vaccines Aged Out No longer eligi ble based on patient's age to complete this topic Hepatitis A Vaccines Aged Out No long er eligible based on patient's age to complete this topic Hepatitis B Vaccines Aged Out No long er eligible based on patient's age to complete this topic IPV Vaccines Aged Out No longer eligi ble based on patient's age to complete this topic MMR Vaccines Aged Out No longer eligi ble based on patient's age to complete this topic Meningococcal ACWY Vaccine Aged Out N o longer eligible based on patient's age to complete this topic Meningococcal B Vaccine Aged Out No l onger eligible based on patient's age to complete this topic RSV Immunization Patients Un kelsie 20 months Aged Out No longer eligible b ased on patient's age to complete this topic Varicella Vaccines Aged Out No longer eligible based on patient's age to complete this topic Advance Directives Documents on File Type Date Recorded Patient Info Print Press Operator Expl anation Health Care Decision (hx) 04/26/2016 AD ROMAN DIRECTIVE Health Care Decision (hx) 04/26/2016 AD ROMAN DIRECTIVE Health Care Decision (hx) 04/26/2016 AD ROMAN DIRECTIVE Health Care Decision (hx) 04/26/2016 AD ROMAN DIRECTIVE Health Care Decision (hx) 04/26/2016 AD ROMAN DIRECTIVE Health Care Decision (hx) 04/26/2016 AD ROMAN DIRECTIVE Health Care Decision (hx) 04/26/2016 AD ROMAN DIRECTIVE Health Care Decision (hx) 04/26/2016 AD ROMAN DIRECTIVE
--- OUTSIDE RECORDS SUMMARY | 2025-01-14 10:54 | XMS_ITS | Encounter Summary ---
Author Organization [employer] Address 75 [facility] 7 [place] [address] Care Team Providers Care Movie Operator Name Role Phone Regina Soto MD Primary Care Provider [phone] Encounter Details Date Type Department Care Team ([facility] Contact Info) Description 02/06/2023 Orders Only [facility] MED & PEDS 505 [place], [place] [phone] Regina Soto MD 505 [place], [place] [phone] Acquired hypothyroidism (Primary Dx); Transaminitis Social History Tobacco Use Types Packs/Day Years [...] Description 01/30/2025 1:15 PM EST Nurse Only [facility] MED & PEDS [address] [place], [place] [phone] Scheduled Orders Name Type Priority Associated Diagnoses Orde r Schedule TSH W/Reflex to FT4 Lab Routine Acquired hypothyroidism Expected: 02/06/2023 (Approximate), Expires: 02/07/2024 Hepatitis Panel, General Lab Routine Acquired hypothyroidism Transaminitis Expected: 02/06/2023 (Approximate), Expires: 02/07/2024 Hepatic Function Panel Lab Routine Acquired hypothyroidism Transaminitis Expected: 03/08/2023 (Approximate), Expires: 02/07/2024 documented as of this encounter Visit Diagnoses Diagnosis Acquired hypothyroidism- Primary Unspecified hypothyroidism Transaminitis Nonspecific elevation of levels of transaminase or lactic acid dehydrogenase (LDH) documented in this encounter Care Teams Movie Operator Relationship Specialty Start Date End Date Regina Soto MD [address] [place] [address] PCP - General Internal Medicine 03/20/13 documented as of this encounter
--- OUTSIDE RECORDS SUMMARY | 2025-01-14 10:54 | XMS_ITS | Encounter Summary ---
Author Organization [employer] Address 75 [facility] 7t [place] [address] Care Team Providers Care Transit Proof Machine Operator Name Role Phone Regina Soto MD Primary Care Provider [phone] Encounter Details Date Type Department Care Team ([facility] st Contact Info) Description 06/24/2024 Orders Only [facility] CHC MED & PEDS [address] [place], [place] [phone] Regina Soto MD [address] [place] [address] Social History Tobacco Use Types Packs/Day Years [...] Upcoming Encounters Date Type Department Care Team ([facility] st Contact Info) Description 01/30/2025 1:15 PM EST Nurse Only [facility] CHC MED & PEDS [address] [place] [address] documented as of this encounter Visit Diagnoses Not on filedocumented in this encounter Additional Health Concerns Assessment Noted Time PHQ-9 Depression Total Score: 5 05/28/19 25 3:51 PM EDT documented as of this encounter Care Teams Transit Proof Machine Operator Relationship Specialty Start Date End Date Regina Soto MD [address] [place] [address] PCP - General Internal Medicine 03/20/13 documented as of this encounter
[2025-01-14 14:13] LABS: MANUAL DIFF FLAG NO
[2025-01-14 14:23] LABS: Hematocrit 33.7 % (37.0-47.0); Hemoglobin 10.8 g/dl (12.0-16.0); Imm Gran Abs Auto 0.02 X10*3/uL (0.00-0.03); Imm Gran Pct Auto 0.3 % (0.0-0.4); Lymphocytes Absolute Auto 2.4 X10*3/uL (1.2-4.9); Mean Corpuscular HGB Conc 32.0 g/dl (31.0-35.0); Mean Corpuscular Hemoglobin 33.1 pg (27.0-33.0); Mean Corpuscular Volume 103.4 fL (80.0-98.0); NRBC Abs Auto 0.000 X10*3/uL (0.0-0.012); NRBC Pct Auto 0.0 /100WBC (0.0-0.2); Platelet Count 234 X10*3/uL (160-400); Red Blood Count 3.26 X10*6/uL (4.20-5.50); White Blood Count 7.5 X10*3/uL (4.8-10.8)
[2025-01-14 14:47] LABS: Anion Gap 15 (12-20); Blood Urea Nitrogen 10 mg/dL (9-16); Calcium 9.7 mg/dL (8.4-10.2); Carbon Dioxide 22 mmol/L (22-29); Chloride 106 mmol/L (96-108); Estimated Glomerular Filt Rate 56; Potassium 4.2 mmol/L (3.3-5.1); Sodium 139 mmol/L (135-145)
[2025-01-14 14:51] LABS: Microalbum/Creatinine Ratio Ur 99.8 ug/mg cr (<30)
[2025-01-14 15:16] LABS: Folate 6.2 ng/mL (> or = 4.0); Vitamin B12 861 pg/mL (200-900)
[2025-01-14 16:29] LABS: Free T4 (Free Thyroxine) < 0.42 ng/dL (0.71-1.85)
== END 2025-01-14 09:41 | disposition home or self-care (01) ==
LOC: HO.CHCLDS 09:40
PROVIDERS: Visit Provider Internal Medicine
DX: R20.0 Anesthesia of skin (principal); R20.2 Paresthesia of skin; R26.9 Unspecified abnormalities of gait and mobility; Z13.21 Encounter for screening for nutritional disorder
CPT/HCPCS: 36415; 80048; 82043; 82306; 82570; 82607; 82746; 84439; 84443; 85025

== ENCOUNTER 2025-01-26 18:13 | Inpatient (IN) | payer OTHER, SELFPAY ==
--- NOTE | ~2025-01-26 | XR_ITS ---
CLINICAL HISTORY: lethargy, hypothyroid 1 view chest x-ray Comparison: Chest CT from 08/06/2024 Findings: Low lung volumes with mild bibasilar atelectasis/pneumonitis. Mild interstitial opacities nonspecific and may reflect fibrosis or mild edema. No pneumothorax or pleural effusion with obscuration of the lung bases. Mild cardiomegaly accentuated by AP technique. Imaged clavicle deformities appear old with degenerative changes of the imaged AC joints of the imaged shoulders. IMPRESSION: Mild bibasilar atelectasis. Mild interstitial opacities nonspecific and may reflect mild edema. This document has been electronically signed by: Kareem Talbot MD on 01/27/2025 00:25:45
[2025-01-26 18:17] VITALS: BP 141/73; BP 148/82; PULSE 74; PULSE 85; RESP 20; TEMP 36.8; O2SAT 100; O2SAT 98; BMI 36.9
[2025-01-26 19:40] LABS: Resp Syncy Virus RNA Qual PCR NEGATIVE (Negative); SARS COV2 PCR INHOUSE NEGATIVE (Negative)
[2025-01-26 19:52] VITALS: BP 115/67; PULSE 68; RESP 15; TEMP 36.7; O2SAT 93
--- OUTSIDE RECORDS SUMMARY | 2025-01-26 20:14 | XMS_ITS | Encounter Summary ---
Author Organization [employer] Address 75 [facility] 7 [place] [address] Care Team Providers Care Cam Milling Machine Operator Name Role Phone Regina Soto MD Primary Care Provider [phone] Reason for Visit * Reason Comments Med Refill Encounter Details Date Type Department Care Team ([facility] Contact Info) Description 03/18/2022 Refill [facility] [address] [place], [place] [phone] Sang Reyez MD [address] [place], [place] [phone] Anxiety (Primary Dx) Social History Tobacco Use [...] Upcoming Encounters Date Type Department Care Team ([facility] Contact Info) Description 01/30/2025 1:15 PM EST Nurse Only [facility] CHC MED & PEDS [address] [place], [place] [phone] documented as of this encounter Visit Diagnoses Diagnosis Anxiety- Primary Anxiety state, unspecified documented in this encounter Care Teams Cam Milling Machine Operator Relationship Specialty Start Date End Date Regina Soto MD [address] [place], [place] [phone] PCP - General Internal Medicine 03/20/13 documented as of this encounter
--- OUTSIDE RECORDS SUMMARY | 2025-01-26 20:14 | XMS_ITS | Encounter Summary ---
Author Organization [employer] Address [address] [facility] 7t [place] [address] Care Team Providers Care Head Automatic Sawyer Name Role Phone Regina Soto MD Primary Care Provider [phone] [phone] Encounter Details Date Type Department Care Team ([facility] st Contact Info) Description 06/24/2024 Orders Only [facility] CHC MED & PEDS [address] [place], [place] [phone] Regina Soto MD [address] [place] [address] Social History Tobacco Use Types Packs/Day Years [...] Upcoming Encounters Date Type Department Care Team ([facility] st Contact Info) Description 01/30/2025 1:15 PM EST Nurse Only [facility] CHC MED & PEDS [address] [place] [address] documented as of this encounter Visit Diagnoses Not on filedocumented in this encounter Additional Health Concerns Assessment Noted Time PHQ-9 Depression Total Score: 5 05/28/19 25 3:51 PM EDT documented as of this encounter Care Teams Head Automatic Sawyer Relationship Specialty Start Date End Date Regina Soto MD [address] [place] [address] PCP - General Internal Medicine 03/20/13 documented as of this encounter
--- OUTSIDE RECORDS SUMMARY | 2025-01-26 20:14 | XMS_ITS ---
Author Name [employer] Address [address] [place] [address] Phone [phone] [facility] Care Team Providers Care Development Mechanic Name Role Phone Edith Nick Unavailable [phone] BEAUZILE, THEVENIN Unavailable [phone] Reason for Referral Not Available Allergies, adverse [...] 2022-07-18 No Data Available OneTouch Delica Plus [id number] Miscellaneous TEST BLOOD SUGAR SIX TIMES DAILY [...] (do not use for phone, instead use 24256-75) [facility] [place] 02/23/2023 Type 2 diabetes mellitus wit h other specified complicationHyperlipidemia, unspecifiedMajor depressive disorder, single episode, in full remissionIron deficiency anemia, unspecifiedVitamin D deficiency, unspecifiedConductive hearing loss, unspecifiedHypothyroidism, unspecified New patient,40-59min; chronic exacerbation, 2 stable chronic or 1 acute illness add add modifier 95 for video (do not use for phone, instead use 12568-50) [facility] [place] 02/23/2023 New patient,40-59min; chronic exacerbation, 2 stable chronic or 1 acute illness add add modifier 95 for video (do not use for phone, instead use 14031-16) [facility] [place] 02/23/2023 New patient,40-59min; chronic exacerbation, 2 stable chronic or 1 acute illness add add modifier 95 for video (do not use for phone, instead use 51861-33) [facility] [place] 02/23/2023 New patient,40-59min; chronic exacerbation, 2 stable chronic or 1 acute illness add add modifier 95 for video (do not use for phone, instead use 31440-55) [facility] [place] 02/23/2023 New patient,40-59min; chronic exacerbation, 2 stable chronic or 1 acute illness add add modifier 95 for video (do not use for phone, instead use 91926-95) [facility] [place] 02/23/2023 New patient,40-59min; chronic exacerbation, 2 stable chronic or 1 acute illness add add modifier 95 for video (do not use for phone, instead use 34216-35) [facility] [place] 02/23/2023 New patient,40-59min; chronic exacerbation, 2 stable chronic or 1 acute illness add add modifier 95 for video (do not use for phone, instead use 97558-85) [facility] [place] 02/23/2023 New patient,40-59min; chronic exacerbation, 2 stable chronic or 1 acute illness add add modifier 95 for video (do not use for phone, instead use 16818-50) [facility] [place] 02/23/2023 New patient,40-59min; chronic exacerbation, 2 stable chronic or 1 acute illness add add modifier 95 for video (do not use for phone, instead use 38855-37) [facility] [place] 02/23/2023 Estab. patient 30-39min; chronic exacerbation, 2 stable chronic or 1 acute illness add add modifier 95 for video, (do not use for phone, instead use 55352-73) [facility] [place] 10/30/2023 Type 2 diabetes mellitus wit h [...] (do not use for phone, instead use 70343-29) [facility] [place] 10/30/2023 Estab. patient 30-39min; chronic exacerbation, 2 stable chronic or 1 acute illness add add modifier 95 for video, (do not use for phone, instead use 22098-26) [facility] [place] 10/30/2023 Estab. patient 30-39min; chronic exacerbation, 2 stable chronic or 1 acute illness add add modifier 95 for video, (do not use for phone, instead use 68349-14) [facility] [place] 10/30/2023 Estab. patient 30-39min; chronic exacerbation, 2 stable chronic or 1 acute illness add add modifier 95 for video, (do not use for phone, instead use 99700-92) [facility] 10/30/2023 Estab. patient 30-39min; chronic exacerbation, 2 stable chronic or 1 acute illness add add modifier 95 for video, (do not use for phone, instead use 38153-36) [facility] 10/30/2023 Estab. patient 30-39min; chronic exacerbation, 2 stable chronic or 1 acute illness add add modifier 95 for video, (do not use for phone, instead use 40579-82) [facility] 10/30/2023 Estab. patient 30-39min; chronic exacerbation, 2 stable chronic or 1 acute illness add add modifier 95 for video, (do not use for phone, instead use 32207-51) [facility] 10/30/2023 Estab. patient 10-29min; 1 minor problem; add add modifier 95 for video, modifier 93 for phone [facility] [place] 12/24/2024 Iron deficiency anemia, unspecifiedType 2 diabetes [...] 95 for video, modifier 93 for phone [facility] [place] 12/24/20[place] Estab. patient 10-29min; 1 minor problem; add add modifier 95 for video, modifier 93 for phone [facility] [place] 12/24/2024 Estab. patient 10-29min; 1 minor problem; add add modifier 95 for video, modifier 93 for phone [facility] [place] 12/24/2024 Estab. patient 10-29min; 1 minor problem; add add modifier 95 for video, modifier 93 for [facility] 12/24/2024 Estab. patient 10-29min; 1 minor problem; add add modifier 95 for video, modifier 93 for phone [facility] [place] 12/24/2024 Estab. patient 10-29min; 1 minor problem; add add modifier 95 for video, modifier 93 for phone [facility] [place] 12/24/2024 Vital Signs Date of Collection Vitals [...] tive Time Current Smoking Status Never smoker 2025-01-11 8 Sex Female History of Procedures Procedures Service Procedure code Service date Servicing provider Phone# New patient,40-59min; chronic exacerbation, 2 stable chronic or 1 acute illness add add modifier 95 for video (do not use for phone, instead use 55142-28) 14145 2023-02-23 No Data Available No Data Availa [...] (do not use for phone, instead use 87529-97) 79115 2023-10-30 No Data Available No Data Availa [...] 95 for video, modifier 93 for phone 16330 2024-12-24 No Data Available No Data Availa [...] record. ([id number])Continue to see PCP. [facility] or disease [...] with your PCP.4. Discussed how to contact [facility] via phone or tablet. 2023-10-30 Remember to keep all appointments with your PCP and specialists. Call CB 03/10 if you have questions or concerns. Discussed how to contact [facility] via phone or tablet. 03/10 phone number [...] okDo you have a Durable Power of Health Practice Manager for Healthcare, or Healthcare Proxy Or Guardianship? Yes, POAIf so, Who? dtr Francisca is hcpDo you have a written Advance Directive? Has Advance DirectiveOther details of discussion:Today's plan: Advised patient to discuss wishes with [id number] : AD or surrogate was documented in the medical record.
--- OUTSIDE RECORDS SUMMARY | 2025-01-26 20:14 | XMS_ITS | Encounter Summary ---
Author Organization [employer] Address 75 [facility] 7t [place] [address] Care Team Providers Care Desizing Pad Operator Name Role Phone Regina Soto MD Primary Care Provider [phone] [phone] Reason for Visit * Reason Comments Med Refill Encounter Details Date Type Department Care Team ([facility] st Contact Info) Description 07/24/2024 Refill [facility] CHC MED & PEDS [address] [place], [place] [phone] Regina Soto MD [address] [place], [place] [phone] Social History Tobacco Use Types Packs/Day Years [...] Description 01/30/2025 1:15 PM EST Nurse Only [facility] MED & PEDS [address] [place] [address] documented as of this encounter Visit Diagnoses Not on filedocumented in this encounter Additional Health Concerns Assessment Noted Time PHQ-9 Depression Total Score: 5 05/28/19 25 3:51 PM EDT documented as of this encounter Care Teams Desizing Pad Operator Relationship Specialty Start Date End Date Regina Soto MD [address] [place] [address] PCP - General Internal Medicine 03/20/13 documented as of this encounter
--- OUTSIDE RECORDS SUMMARY | 2025-01-26 20:15 | XMS_ITS | Encounter Summary ---
Author Organization [employer] Address 75 [facility] 7 [place] [address] Care Team Providers Care Hand Coper Name Role Phone Regina Soto MD Primary Care Provider [phone]- [phone] Reason for Referral * Consultation (Routine) - Closed Specialty Diagnoses / Procedures Referred By Suzan matthews Referred To Contact Vascular Surgery Diagnoses Occlusion of carotid artery, unspecified laterality eRgina Soto MD [address] [place] [address] Phone: tel: fax: Davi Santos MD [address] [place] [address] Phone: tel: fax: Referral ID Status Reason Start Date Expiration Date V isits Requested Visits Authorized [id number] Closed Specialty Services Required 09/02/2024 09/02/2025 1 1 Encounter Details Date Type Department Care Team (Late st Contact Info) Description 09/02/2024 Orders Only [facility] CHC MED & PEDS [address] [place], [place] [phone] Regina Soto MD [address] [place], [place] [phone] Occlusion of carotid artery, unspecified laterality (Primary [...] Description 01/30/2025 1:15 PM EST Nurse Only [facility] CHC MED & PEDS [address] [place] [address] Pending Results Name Type Priority Associated Diagnoses [...] documented as of this encounter Care Teams Hand Coper Relationship Specialty Start Date End Date Regina Soto MD [address] [place] [address] PCP - General Internal Medicine 03/20/13 documented as of this encounter
--- OUTSIDE RECORDS SUMMARY | 2025-01-26 20:15 | XMS_ITS | Encounter Summary ---
Author Organization [employer] [facility] Address [address] [place] [address] 7 [place] [address] Care Team Providers Care Electronics Engineering Professor Name Role Phone Regina Soto MD Primary Care Provider [phone] Reason for Visit * Reason Comments Med Refill Encounter Details Date Type Department Care Team ([facility] Contact Info) Description 12/20/2022 Refill [facility] MED & PEDS [address] [place], [place] [phone] Regina Soto MD [address] [place], [place] [phone] Hypothyroidism, unspecified Social History Tobacco Use Types [...] Description 01/30/2025 1:15 PM EST Nurse Only [facility]C MED & PEDS [address] [place] [address] documented as of this encounter Visit Diagnoses Diagnosis Hypothyroidism, unspecified documented in this encounter Care Teams Electronics Engineering Professor Relationship Specialty Start Date End Date Regina Soto MD [address] [place] [address] PCP - General Internal Medicine 03/20/13 documented as of this encounter
--- OUTSIDE RECORDS SUMMARY | 2025-01-26 20:15 | XMS_ITS | Encounter Summary ---
Author Organization [employer] Address [address] [facility] 7t [place] [address] Care Team Providers Care Outside Sales Advertising Executive Name Role Phone Regina Soto MD Primary Care Provider [phone]- [phone] Encounter Details Date Type Department Care Team ([facility] st Contact Info) Description 02/05/2024 Orders Only [facility] CHC MED & PEDS [address] [place], [place] [phone] Regina Soto MD [address] [place], [place] [phone] Acquired hypothyroidism (Primary Dx) Social History Tobacco [...] Upcoming Encounters Date Type Department Care Team ([facility] Contact Info) Description 01/30/2025 1:15 PM EST Nurse Only [facility] MED & PEDS [address] [place] [address] Scheduled Orders Name Type Priority Associated Diagnoses Orde r Schedule TSH W/Reflex to FT4 Lab Routine Acquired hypothyroidism Expected: 02/05/2024 (Approximate), Expires: 02/04/2025 documented as of this encounter Visit Diagnoses Diagnosis Acquired hypothyroidism- Primary Unspecified hypothyroidism documented in this encounter Care Teams Outside Sales Advertising Executive Relationship Specialty Start Date End Date Regina Soto MD 505 [place] [address] PCP - General Internal Medicine 03/20/13 documented as of this encounter
--- OUTSIDE RECORDS SUMMARY | 2025-01-26 20:15 | XMS_ITS | Encounter Summary ---
Author Organization [employer] [facility] Address [address] [facility] 7t [place] [address] Care Team Providers Care Physical Meteorologist Name Role Phone Regina Soto MD Primary Care Provider [phone]- [phone] Encounter Details Date Type Department Care Team (Late st Contact Info) Description 10/13/2022 Orders Only [facility] MED & PEDS [address] [place] [address] Lexy Mallory LPN Social History Tobacco Use [...] Description 01/30/2025 1:15 PM EST Nurse Only [facility] MED & PEDS [address] [place] [address] documented as of this encounter Visit Diagnoses Not on filedocumented in this encounter Care Teams Physical Meteorologist Relationship Specialty Start Date End Date Regina Soto MD 505 [place] [address] PCP - General Internal Medicine 03/20/13 documented as of this encounter
--- OUTSIDE RECORDS SUMMARY | 2025-01-26 20:15 | XMS_ITS | Encounter Summary ---
Author Organization [employer] Address [address] [facility] 7t [place] [address] Care Team Providers Care Nuclear Officer Name Role Phone Regnia Soto MD Primary Care Provider [phone] Encounter Details Date Type Department Care Team ([facility] st Contact Info) Description 05/03/2024 Orders Only [facility] CHC MED & PEDS [address] [place], [place] [phone] Regina Soto MD [address] [place] [address] Social History Tobacco Use Types Packs/Day Years [...] Encounters Date Type Department Care Team ([facility] st Contact Info) Description 01/30/2025 1:15 PM EST Nurse Only [facility] MED & PEDS 505 [place] [address] documented as of this encounter Visit Diagnoses Not on filedocumented in this encounter Care Teams Nuclear Officer Relationship Specialty Start Date End Date Regina Soto MD [address] [place] [address] PCP - General Internal Medicine 03/20/13 documented as of this encounter
--- OUTSIDE RECORDS SUMMARY | 2025-01-26 20:15 | XMS_ITS | Encounter Summary ---
Author Organization [employer] Address [address] [facility] 7 [place] [address] Care Team Providers Care Figure Refinisher And Repairer Name Role Phone Regina Soto MD Primary Care Provider [phone] Encounter Details Date Type Department Care Team ([facility] Contact Info) Description 02/06/2023 Orders Only [facility] MED & PEDS [address] [place], [place] [phone] Regina Soto MD 505 [place], [place] [phone] Acquired hypothyroidism (Primary Dx); Transaminitis Social History [...] Description 01/30/2025 1:15 PM EST Nurse Only [facility] MED & PEDS [address] [place], [place] [phone] Scheduled Orders Name Type Priority Associated Diagnoses [...] ([facility]) documented in this encounter Care Teams Figure Refinisher And Repairer Relationship Specialty Start Date End Date Regina Soto MD [address] [place] [phone] PCP - General Internal Medicine 03/20/13 documented as of this encounter
--- OUTSIDE RECORDS SUMMARY | 2025-01-26 20:15 | XMS_ITS | Clinical Summary ---
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
--- OUTSIDE RECORDS SUMMARY | 2025-01-26 20:15 | XMS_ITS | Encounter Summary ---
Author Organization [employer] [facility] Address [address] [place] [address] [address] Care Team Providers Care Floral Department Specialist Name Role Phone Regina Soto MD Primary Care Provider [phone]- [phone] Reason for Visit * Reason Comments Med Refill Encounter Details Date Type Department Care Team ([facility] Contact Info) Description 01/20/2023 Refill [facility] MED & PEDS [address] [place] [address] Regina Soto MD 505 [place] [address] Social History Tobacco Use Types Packs/Day Years [...] Upcoming Encounters Date Type Department Care Team ([facility] Contact Info) Description 01/30/2025 1:15 PM EST Nurse Only [facility] CHC MED & PEDS [address] [place] [address] documented as of this encounter Visit Diagnoses Not on filedocumented in this encounter Care Teams Floral Department Specialist Relationship Specialty Start Date End Date Regina Soto MD 505 [place] [address] PCP - General Internal Medicine 03/20/13 documented as of this encounter
--- OUTSIDE RECORDS SUMMARY | 2025-01-26 20:15 | XMS_ITS | Clinical Summary ---
Author Organization [employer] Address [address] [facility] 7t [place] [address] Care Team Providers Care Nursing Technician Name Role Phone Regina Soto MD Primary Care Provider [phone] Allergies Active Allergy Reactions Criticality Noted Date [...] WITH MEALS 270 tablet 2 023 Active Blood Glucose Monitoring Suppl (OneTouch Verio Flex [...] TABLET EVERY MORNING (VITAMIN) 30 tablet 11 024 Active docusate sodium (Colace) 100 MG capsule TAKE ONE CAPSULE EVERY NIGHT AT BEDTIME NEEDED FOR CONSTIPATION 90 capsule 3 Active glucose blood (OneTouch Ultra Test) test strip To use once a day 100 strip 5 Active Lancets (OneTouch Delica Plus [id number]) [facility] To use once a day 100 each 11 Active DULoxetine (Cymbalta) [address] capsuleIndication s:Depressive disorder Take 1 capsule (60 mg) by mouth Once per day. Do not crush or chew. 30 capsule 025 2025 Active cyanocobalamin (Vitamin B-12) 1000 MCG/ML injectionIndicati ons:Vitamin B12 deficiency 1 injection a week x 4 weeks. 1 mL Active mirtazapine (Remeron) 30 MG tabletIndications :Moderate episode of recurrent major depressive disorder (CMS/HCC) (HCC) TAKE ONE TABLET EVERY NIGHT AT BEDTIME 30 tablet 5 Active Lancet Devices (Autolet) lancing device 1 each by Other route 2 times daily. 100 each 025 2025 Active glucose blood test strip To check the blood glucose 2 times a day 100 each 12 025 2025 Active Blood Glucose Monitoring Suppl (Accu-Chek Guide) w/Device kit To check the Blood glucose 2 times a day 1 kit Active Ferrous Sulfate (iron) 325 (65 Fe) MG tabletIndications :Iron deficiency anemia, unspecified TAKE ONE TABLET EVERY MORNING (BLOOD) 30 tablet 5 Active melatonin 5 MG tabletIndications :Primary insomnia TAKE ONE TABLET EVERY NIGHT AT BEDTIME NEEDED 30 tablet Active rosuvastatin (Crestor) 10 MG tablet TAKE ONE TABLET EVERY NIGHT AT BEDTIME 90 tablet 1 Active metFORMIN (Glucophage) 1000 MG tablet TAKE ONE TABLET IN THE MORNING AND EVENING (SUGAR) 180 tablet 1 Active levothyroxine (Synthroid) 125 MCG tabletIndications :Acquired hypothyroidism Take 1 tablet (125 mcg) by mouth before breakfast. 30 tablet 11 025 2025 Active cholecalciferol (Vitamin D-3) 25 MCG tabletIndications :Vitamin D deficiency Take 1 tablet (25 mcg) by mouth Once per day. 90 tablet 3 025 Active cholecalciferol (Vitamin D-3) 25 MCG tabletIndications :Vitamin D deficiency TAKE ONE TABLET BY MOUTH EVERY MORNING (vitamin) 30 tablet 5 023 2024 Discontinued(R eorder (will not trigger notification to Pharmacy)) Ferrous Sulfate (iron) 325 (65 Fe) MG tabletIndications :Iron deficiency anemia, unspecified TAKE ONE TABLET EVERY MORNING (BLOOD) 30 tablet 5 025 2024 Discontinued melatonin 5 MG tabletIndications :Primary insomnia TAKE ONE TABLET EVERY NIGHT AT BEDTIME NEEDED FOR SLEEP 30 tablet 5 025 2024 Discontinued levothyroxine (Synthroid) 112 MCG tabletIndications :Acquired hypothyroidism Take 1 tablet (112 mcg) by mouth before breakfast. 30 tablet 11 025 2024 Discontinued(R eorder (will not trigger notification to Pharmacy)) metFORMIN (Glucophage) 1000 MG tablet TAKE ONE TABLET TWICE DAILY IN THE MORNING AND AT BEDTIME (SUGAR) 180 tablet 025 2024 Discontinued rosuvastatin (Crestor) 10 MG tablet TAKE ONE TABLET EVERY NIGHT AT BEDTIME 90 tablet 025 2024 Discontinued Hospital, Clinic, or Other [...] Encounters Date Type Department Care Team Description 01/15/2025 Results Follow-Up [facility] CHC MED & PEDS [address] [place] [address] Regina Soto MD POCT Glucose, POCT Hgb A1c, Vitamin B12/Folate, Serum Panel, Additional followed-up results: 5 01/15/2025 Orders Only [facility] MED & PEDS [address] [place] [address] Regina Soto MD Macrocytic anemia (Primary Dx); Acquired hypothyroidism 01/14/2025 Orders Only [facility] MED & PEDS [address] [place] [address] Regina Patel MD 01/14/2025 Refill [facility] MED & PEDS [address] [place] [address] GermanSang Crespo MD 01/13/2025 3:45 PM EST Office Visit [facility] MED & PEDS [address] [place] [address] Regina Patel MD Gait disturbance (Primary Dx); Numbness and tingling of both feet; Encounter for immunization; Type 2 diabetes mellitus with other neurologic complication, without long-term current use of insulin ([facility]) 01/13/2025 Travel 01/06/2025 Refill [facility] MED & PEDS [address] [place] [address] Regina Soto MD Iron deficiency anemia, unspecified; Primary insomnia 01/02/2025 1:30 PM EDT Clinical Support [facility] MED & PEDS [address] [place] [address] Nely Grover RN Vitamin B12 deficiency 01/02/2025 Travel 12/12/2024 Refill [facility] MED & PEDS [address] [place] [address] Regina Patel MD 12/05/2024 1:30 PM EDT Clinical Support [facility] MED & PEDS [address] [place] [address] Nely Grover RN Vitamin B12 deficiency 12/05/2024 Travel 12/01/2024 Refill [facility] MED & PEDS [address] [place] [address] Regina Soto MD Moderate episode of recurrent major depressive disorder (CMS/HCC) 11/05/2024 1:30 PM EDT Clinical Support [facility] CHC MED & PEDS [address] [place] [address] Nely Grover RN Vitamin B12 deficiency 11/05/2024 Travel 10/29/2024 1:30 PM EDT Clinical Support [facility] MED & PEDS [address] [place] [address] Nely Grover RN Vitamin B12 deficiency 10/29/2024 Travel from Last 3 Months Immunizations Immunization [...] Description 01/30/2025 1:15 PM EST Nurse Only [facility] MED & PEDS [address] [place], [place] [phone] Health Maintenance Due Date Last Done Comments Eye Exam 06/29/1950 Hepatitis A Vaccines (1 of 2 - Risk 2-dose series) 1960 Hepatitis B Vaccines (1 of 3 - Risk 3-dose series) 2001 RSV Patients and Patients Aged 60 years or older (1 - 1-dose 75+ series) 2016 SDOH Screening 11/05/2024 11/06/2023 COVID-19 Vaccine ( season) 2024 12/08/2020, 05/13/2020, 04/21/2020 Lipid Panel 11/14/2024 11/15/2023, 01/12, 04/05/2021, Additional history exists Diabetes: Hemoglobin A1C 04/15/2025 025, 03/01/2024, 11/15/2023, Additional history exists Alcohol/Substance Use Screening 05/27/2025 05/27/2024 Depression Screening 05/27/2025 05/27/2024, 05/28/19 Diabetes: Foot Exam 01/13/2026 01/13/2025, 02/01/2023, 02/01/2023, Additional history exists Tobacco Screening 01/13/2026 01/13/2025 Diabetes: Urine Protein Screening 01/14/2026 01/14/2025, 02/01/2023 DTaP/Tdap/Td Vaccines (3 - Td or Tdap) [...] Procedure Name Priority Date/Time Associated Diagnosis Comments ALBUMIN, RANDOM URINE W/CREATININE Routine 01/14/2025 9:57 AM EST Gait disturbance Numbness and tingling of both feet T4, FREE Routine 01/14/2025 9:42 AM EST BASIC METABOLIC PANEL Routine 01/14/2025 9:42 AM EST Gait disturbance TSH W/REFLEX TO FT4 Routine 01/14/2025 9 :42 AM EST Gait disturbance CBC WITH AUTO DIFFERENTIAL Routine 01/14/2025 9:42 AM EST Gait disturbance VITAMIN D,25-OH,TOTAL,IA Routine 01/14/2025 9:42 AM EST Gait disturbance VITAMIN B12/FOLATE, SERUM PANEL Routine 01/14/2025 9:42 AM EST Gait disturbance POCT GLUCOSE Routine 01/13/2025 4:20 PM EST Gait disturbance POCT GLYCATED HEMOGLOBIN, TOTAL Routine 01/13/2025 4:19 PM EST Gait disturbance LIPID PANEL, STANDARD Routine 11/15/2023 11:04 AM EDT Hypercholesterolemi a from Last 3 Months or Most Recently Relevant to Health Maintenance Results * (ABNORMAL) Albumin, Random Urine W/Creatinine (01/14/2025 9:57 AM EST) Creatinine, Urine 93.10 mg/dL [facility] Microalbumin Urine 93.0 mg/L [facility] Microalbum Creatinine Ratio Ur 99.8(H) <30 ug/mg cr [facility] Comment:Albumin/Creatinine R atio Reference Ranges: Normal: < 30 ug/mg creatinine Microalbuminuria: 30 - 300 ug/mg creatinineClinical Albuminuria: > 300 ug/mg creatinine Urine (Urine, Random) 01/14/2025 9:57 AM EST 01/14/2025 2:08 PM EST us Regina Soto MD LAB URINE ORDERABLES Final Result [facility] [address] [place] [address] [phone] * (ABNORMAL) Vitamin D, 25-Hydroxy, Total, Immunoassay (01/14/2025 9:42 AM EST) Vitamin D 25-OH Total 28.6(L) >30 ng/mL [facility] Comment: Health Based Reference Values*< 20 ng/mL Hawfhueps57-12 ng/mL Insufficient> 30 ng/mL Sufficient*Uriel BEARD. N Engl J Med. 2007;357:266-280There is no well-established upper level of normal vitamin Dlevels. Some laboratories use 50 ng/mL as an upper limit ofnormal. However, toxicity is patient-dependent and may occurat any level. Careful correlation with the patient'spresentation is necessary and, if there is concern forvitamin D toxicity, treatment should be consideredirrespective of the serum level.Care must be taken in interpreting Vitamin D results fromdifferent laboratories and methodologies. Published datademonstrated that results from patients undergoinghemodialysis may show a negative bias when tested withvarious automated 25-OH vitamin D assays when compared toLC-MS/MS.When testing samples from patients whose predominant form ofVitamin D is Vitamin D2, such as patients receiving VitaminD2 supplementation, results that are subtherapeutic shouldbe confirmed with another method such as LC-MS/MS. Blood Venous blood specimen / Unknown 01/14/2025 9:42 AM EST 01/14/2025 2:09 PM EST us Regina Soto MD LAB BLOOD ORDERABLES Final Result [facility] [address] [place] [address] [phone] * Vitamin B12/Folate, Serum Panel (01/14/2025 9:42 AM EST) Vitamin B12 861 200 - 900 pg/mL [facility] Comment:NORMAL 200-900 PG/ML INDETERMINATE 160-199 PG/ML DEFICIENT < 160 PG/ML Folate 6.2 > or = 4.0 ng/mL [facility] Comment:Reference Values:> o r = 4.0 ng/mL< 4.0 ng/mL suggests folate deficiency Methotrexate, aminopterin and folinic acid(leucovorin) are chemotherapeutic agents whose molecularstructures are similar to folate; therefore, the Architectfolate assay cannot be used for patients using these drugs. Blood Venous blood specimen / Unknown 01/14/2025 9:42 AM EST 01/14/2025 2:09 PM EST us Regina Soto MD LAB BLOOD ORDERABLES Final Result Performing Organization Address [facility]/ZIP Co de Phone Number [facility] [address] [place] [phone] * (ABNORMAL) TSH W/Reflex to FT4 (01/14/2025 9:42 AM EST) TSH reflex Free T4 24.95(H) 0.32 - 4.0 uIU/mL [facility] Blood Venous blood specimen / Unknown 01/14/2025 9:42 AM EST 01/14/2025 2:09 PM EST us Regina Soto MD LAB BLOOD ORDERABLES Final Result Performing Organization Address [facility] Co de Phone Number [facility] [address] [place] [phone] * (ABNORMAL) CBC auto differential (01/14/2025 9:42 AM EST) White Blood Count 7.5 4.8 - 10.8 X10*3/uL [facility] Red Blood Count 3.26(L) 4.20 - 5.50 X10*6/uL [facility] Hemoglobin 10.8(L) 12.0 - 16.0 g/dl [facility] Hematocrit 33.7(L) 37.0 - 47.0 % [facility] Mean Corpuscular Volume 103.4(H) 80.0 - 98.0 fL [facility] Mean Corpuscular Hemoglobin 33.1(H) 27.0 - 33.0 pg [facility] Mean Corpuscular HGB Conc 32.0 31.0 - 35.0 g/dl [facility] Red Cell Distribution Width 12.8 11.0 - 16.0 % [facility] Platelet Count 234 160 - 400 X10*3/uL [facility] Mean Platelet Volume 12.4(H) 9.4 - 12.3 fL [facility] Neutrophils Percent Auto 59.0 45 - 73 % [facility] Imm Gran Pct Auto 0.3 0.0 - 0.4 % [facility] Lymphocytes Percent Auto 31.4 20 - 40 % [facility] Monocytes Percent Auto 4.8 2 - 11 % [facility] Eosinophils Percent Auto 3.7 0 - 4 % [facility] Basophils Percent Auto 0.8 0 - 2 % [facility] NRBC Pct Auto 0.0 0.0 - 0.2 /100WBC [facility] Neutrophils Absolute Auto 4.4 2.0 - 8.3 x10*3/uL [facility] Imm Gran Abs Auto 0.02 0.00 - 0.03 X10*3/uL [facility] Lymphocytes Absolute Auto 2.4 1.2 - 4.9 X10*3/uL [facility] Monocytes Absolute Auto 0.4 0.1 - 1.2 X10*3/uL [facility] Eosinophils Absolute Auto 0.3 0.0 - 0.4 X10*3/uL [facility] Basophils Absolute Auto 0.1 0.0 - 0.2 X10*3/uL [facility] NRBC Abs Auto 0.000 0.0 - 0.012 X10*3/uL [facility] Blood Venous blood specimen / Unknown 01/14/2025 9:42 AM EST 01/14/2025 2:09 PM EST Regina Soto MD LAB BLOOD ORDERABLES Final Result Performing Organization Address [facility]/ZIP Co de Phone Number [facility] [address] [place] [phone] * (ABNORMAL) T4, Free (01/14/2025 9:42 AM EST) Free T4 (Free Thyroxine) <0.42(L) 0.71 - 1.85 ng/dL [facility] 01/14/2025 9:42 AM EST 01/14/2025 2:09 PM EST us Regina Soto MD LAB BLOOD ORDERABLES Final Result Performing Organization Address [facility] de Phone Number [facility] [address] [place] [phone] * (ABNORMAL) Basic Metabolic Panel (01/14/2025 9:42 AM EST) [facility] Sodium 139 135 - 145 mmol/L [facility] Potassium 4.2 3.3 - 5.1 mmol/L [facility] Chloride 106 96 - 108 mmol/L [facility] Carbon Dioxide 22 22 - 29 mmol/L [facility] Anion Gap 15 12 - 20 [facility] Urea Nitrogen (BUN) 10 9 - 16 mg/dL [facility] Creatinine, Serum 0.96 0.5 - 1.4 mg/dL [facility] Estimated Glomerular Filt Rate 56 [facility] Comment:Chronic Kidney Disea se: Estimated GFR < 60 mL/min/1.55e2Rmuabu Kidney Disease: Estimated GFR < 15 mL/min/1.73m2 Glucose 147(H) 60 - 115 mg/dL [facility] Calcium 9.7 8.4 - 10.2 mg/dL [facility] Blood Venous blood specimen / Unknown 01/14/2025 9:42 AM EST 01/14/2025 2:09 PM EST us Regina Soto MD LAB BLOOD ORDERABLES Final Result [facility] [address] [place] [phone] * (ABNORMAL) POCT Glucose (01/13/2025 4:20 PM [...] 11:04 AM EDT) Triglycerides 185(H) <150 mg/dL [facility] Comment:Desirable Triglyceri de: less than 150 mg/dLBorderline High Triglyceride 150-199 mg/dLHigh Triglyceride: 200-499 mg/dLVery High Triglyceride: greater than or equal to 5OO mg/dL Cholesterol 171 <200 mg/dL [facility] Comment:Desirable Cholestero l: less than 200 mg/dLBorderline High Cholesterol: 200-239 mg/dLHigh Cholesterol: greater than 239 mg/dL LDL Cholesterol Calculated 74 <100 mg/dL [facility] Comment:Desirable LDL: less than 100 mg/dLNear Optimal/Above Optimal LDL: 110- 129 mg/dLBorderline High LDL: 130-159 mg/dLHigh LDL: 160-189 mg/dLVery High LDL: greater than or equal to 190 mg/dL HDL Cholesterol 60 >40 mg/dL [facility] Comment:Desirable HDL: great er than 40 mg/dL Note: This HDL assay may give artificially low results in patients with liver disease. Blood Venous blood specimen / Unknown 11/15/2023 11:04 AM EDT 11/15/2023 2:23 PM EDT Regina Soto MD LAB BLOOD ORDERABLES Final Result [facility] [address] [place] [address] [phone] from Last 3 Months or Most Recently Relevant to Health Maintenance Insurance [facility] DUAL COMPLETE [facility] STANDARD Care Teams Nursing Technician Relationship Specialty Start Date End Date Regina Soto MD [address] [place] [phone] PCP - General Internal Medicine 03/20/13
--- OUTSIDE RECORDS SUMMARY | 2025-01-26 20:15 | XMS_ITS | Encounter Summary ---
Author Organization [employer] Address [address] [facility] [address] [place] [address] Care Team Providers Care Payroll Processor Name Role Phone Regina Soto MD Primary Care Provider [phone] Encounter Details Date Type Department Care Team ([facility] st Contact Info) Description 08/06/2024 Orders Only [facility] MED [facility] PEDS [address] [place], [place] [phone] Regina Soto MD [address] [place] [address] Social History Tobacco Use Types Packs/Day Years [...] Upcoming Encounters Date Type Department Care Team ([facility] st Contact Info) Description 01/30/2025 1:15 PM EST Nurse Only [facility] MED & PEDS [address] [place] [address] documented as of this encounter Procedures Procedure Name Priority Date/Time Associated Diagnosis Comments CULTURE, URINE, ROUTINE Routine 08/06/2024 12:00 AM EDT documented in this encounter Results * Culture, Urine, Routine (08/06/2024 12:00 AM EDT) Urine Urine specimen obtained by clean catch procedure / Unknown 08/06/2024 08/06/2024 Comment:[facility] Narrative [facility] - 08/08/2024 8:12 AM EDT Escherichia coli Quant > 100,000 cfu/mL Escherichia coli: Ampicillin <=2(S) Escherichia coli: Cefazolin (Urine) <=1(S) Escherichia coli: Cefepime <=0.12(S) Escherichia coli: Ceftriaxone <=0.25(S) Escherichia coli: Ciprofloxacin 0.12(S) Escherichia coli: Gentamicin <=1(S) Escherichia coli: Nitrofurantoin <=16(S) Escherichia coli: Trimethoprim/Sulfamethoxazole <=20(S) Specimen Source: Urine clean catch us Generic External Data Provider LAB MICROBIOLOGY - GENERAL ORDERABLES Final Result [facility] [address] [place] [address] [phone] documented in this encounter Visit Diagnoses Not on filedocumented in this encounter Additional Health Concerns Assessment Noted Time PHQ-9 Depression Total Score: 5 05/28/19 25 3:51 PM EDT documented as of this encounter Care Teams Payroll Processor Relationship Specialty Start Date End Date Regina Soto MD [address] [place] [id number] PCP - General Internal Medicine 03/20/13 documented as of this encounter
--- OUTSIDE RECORDS SUMMARY | 2025-01-26 20:16 | XMS_ITS | Encounter Summary ---
Author Organization [email or web address] Address [address] [facility] 7 [place] [address] Care Team Providers Care Airline Security Representative Name Role Phone Regina Soto MD Primary Care Provider [phone] Reason for Referral * Consultation (Routine) - Authorized Specialty Diagnoses / Procedures Referred By Suzan matthews Referred To Contact Hematology and Oncology Diagnoses Macrocytic anemia Regina Soto MD [address] [place] [address] Phone: tel: fax: Nafisa Chaudhary MD [address] [place] [address] Phone: tel: Referral ID Status Reason Start Date Expiration Date Visits Requested Visits Authorized [id number] Authorized Specialty Services Required 01/15/2025 01/15/2026 1 1 Encounter Details Date Type Department Care Team ([facility] st Contact Info) Description 01/15/2025 Orders Only [facility] MED & PEDS [address] [place], [place] [phone] Regina Soto MD [address] [place] [address] Macrocytic anemia (Primary Dx); Acquired hypothyroidism Social History Tobacco Use Types Packs/Day Years [...] Description 01/30/2025 1:15 PM EST Nurse Only [facility] MED [facility] PED[facility] [address] [place] [address] Scheduled Orders Name Type Priority Associated Diagnoses Orde r Schedule TSH W/Reflex to FT4 Lab Routine Acquired hypothyroidism Expected: 01/15/2025 (Approximate), Expires: 01/15/2026 Scheduled Referrals Name Type Priority Associated Diagnoses Order Schedule Referral to Hematology / Oncology Outpatient Referral Routine Macrocytic anemia Expected: 01/15/2025 (Approximate), Expires: 01/15/2026 documented as of this encounter Visit Diagnoses Diagnosis Macrocytic anemia- Primary Acquired hypothyroidism Unspecified hypothyroidism documented in this encounter Additional Health Concerns Assessment Noted Time PHQ-9 Depression Total Score: 5 05/28/19 25 3:51 PM EDT documented as of this encounter Care Teams Airline Security Representative Relationship Specialty Start Date End Date Regina Soto MD [address] [place] [id number] PCP - General Internal Medicine 03/20/13 documented as of this encounter
--- OUTSIDE RECORDS SUMMARY | 2025-01-26 20:16 | XMS_ITS | Encounter Summary ---
Author Organization [employer] [facility] Address [address] [facility] 7 [place] [address] Care Team Providers Care Studio Grip Name Role Phone Regina Soto MD Primary Care Provider [phone]- [phone] Encounter Details Date Type Department Care Team (Late st Contact Info) Description 07/21/2022 Orders Only [facility] MED & PEDS [address] [place] [address] Ramya Delcid LPN Social History Tobacco Use [...] 1:15 PM EST Nurse Only [facility] MED & PEDS [address] [place] [address] documented as of this encounter Visit Diagnoses Not on filedocumented in this encounter Care Teams Studio Grip Relationship Specialty Start Date End Date Regina Soto MD [address] [place] [address] PCP - General Internal Medicine 03/20/13 documented as of this encounter
--- NOTE | 2025-01-26 21:03 | ED.GENADULT ---
HPI - General Adult General Chief complaint: General Medical Stated complaint: Generalized pain and weakness x1 week Time Seen by Provider: 01/26/25 20:38 History of Present Illness ED Provider: jim LARRY narrative: ED narrative: MRN: Author / Clinician: Anoop Bagley MD (Emergency Medicine) Chief Complaint Generalized weakness with bilateral leg tremors for several weeks. History of Present Illness Patient presents to the ED accompanied by her mother (primarily Mongolian-speaking) for evaluation of progressive generalized weakness and constant bilateral leg tremors that have been present for ?weeks.? Earlier today the patient reportedly told family members that she ?was going to today,? prompting them to seek emergency care. Per mother: - Weakness and leg tremulousness are persistent but have not acutely worsened today. - Patient is able to ambulate but with significant difficulty; she refuses to use a walker. - Appetite is preserved; eating well. - No associated vomiting, fever, cough, diarrhea, or blood in stool. - No shortness of breath or lower-extremity swelling observed. - No noted severe headaches except brief complaint when EMS arrived. Past medical history significant for diabetes mellitus, thyroid disorder, and anxiety. Mother reports patient receives unspecified ?rectal? injections, possibly vitamin B12, from an outside physician. It is unclear whether the patient is currently taking medication for anxiety. She is scheduled to follow up with her primary care physician on . Review of Systems Positive: generalized weakness, bilateral leg tremors, difficulty walking, statement of impending . Negative: vomiting, fever, cough, diarrhea, blood in stool, shortness of breath, lower-extremity swelling, poor appetite. All other systems not discussed. Physical Examination Physical Exam: - General: Appears weak but in no acute distress. - HEENT: Moist mucous membranes. Mild conjunctival pallor. - Lungs: Clear to auscultation bilaterally. - Neurological/Musculoskeletal: Speech normal. Able to lift lower extremity on command; observed leg tremor. Ambulation difficult (patient evaluated at bedside). Emergency Department Course Blood work, urinalysis, and non-contrast CT head ordered and pending. No previous lab results available at this time. Plan discussed with patient and mother via bilingual communication. Assessment & Plan Diagnosis: 1. Generalized weakness and bilateral leg tremor, etiology undifferentiated (rule out metabolic, neurologic, psychiatric causes). Plan: - Obtain blood work. - Non-contrast CT head to evaluate for intracranial pathology. - Urinalysis. - Follow-up appointment already scheduled for with primary care physician. Disposition Patient currently remains in the Emergency Department pending diagnostic results and reassessment. Related Data Home Medications ?Medication ?Instructions ?Recorded ?Confirmed cholecalciferol (vitamin D3) 25 25 mcg PO DAILY 07/15/21 01/27/25 mcg (1,000 unit) capsule docusate sodium 100 mg capsule 100 mg PO DAILY 07/15/21 01/27/25 (Colace) duloxetine 20 mg capsule,delayed 20 mg PO BID 07/15/21 01/27/25 release levothyroxine 125 mcg capsule 125 mcg PO DAILY 07/15/21 01/27/25 melatonin 5 mg capsule 5 mg PO BEDTIME PRN Insomnia 07/15/21 01/27/25 metformin 1,000 mg tablet 1,000 mg PO BID 07/15/21 01/27/25 mirtazapine 30 mg tablet 30 mg PO BEDTIME 07/15/21 01/27/25 empagliflozin 10 mg tablet 10 mg PO QAM 01/27/25 01/27/25 (Jardiance) ferrous sulfate 325 mg (65 mg 325 mg PO QAM 01/27/25 01/27/25 iron) tablet rosuvastatin 10 mg tablet 10 mg PO BEDTIME 01/27/25 01/27/25 Allergies Allergy/AdvReac Type Severity Reaction Status Date / Time acetaminophen (Tylenol) Allergy Unknown Abdominal Verified 01/26/25 18:21 Pain albuterol (ALBUTEROL) Allergy Unknown VIJAYA Verified 01/26/25 18:21 ibuprofen (IBUPROFEN) Allergy Unknown HYPER Verified 01/26/25 18:21 oxycodone (OXYCODONE) Allergy Unknown RASH, ITCHY Verified 01/26/25 18:21 Albuterol Allergy Unknown Anxiety Uncoded 07/15/21 09:53 [facility] Past Medical History Surgical History H/O lumbar discectomy History of tubal ligation History of cholecystectomy Social History Social History Household Members: Other Household Members Other:: daughter Housing: Apartment Do you presently have visiting nurse or other home services: No (daughter helps) Patient Tobacco Use Status: Never used Tobacco service: No Physical Exam ED Vital Signs: Vital Signs - 24 hr 01/26/25 18:17 01/26/25 19:52 01/26/25 22:11 Temperature 98.3 F 98.0 F Pulse Rate 74 68 66 Respiratory Rate 20 15 17 Blood Pressure 141/73 H 115/67 140/66 H Pulse Oximetry 100 93 93 Oxygen Delivery Method Room Air Room Air Room Air BMI result Body Mass Index 36.9 Medications Administered Generic Name Dose Route Start Last Admin Trade Name Freq PRN Reason Stop Dose Admin Amlodipine Besylate 5 mg 01/28/25 09:00 01/28/25 09:07 Amlodipine Besylate 5 Mg Tablet PO 5 mg DAILY CHRISTOPHE Administration Protocol Atorvastatin Calcium 40 mg 01/27/25 21:50 01/27/25 22:53 Atorvastatin Calcium 40 Mg Tablet PO 40 mg BEDTIME CHRISTOPHE Administration Docusate Sodium 100 mg 01/28/25 09:00 01/28/25 09:07 Docusate Sodium 100 Mg Capsule PO 100 mg DAILY CHRISTOPHE Administration Duloxetine HCl 20 mg 01/28/25 09:00 01/28/25 09:07 Duloxetine Hcl 20 Mg Capsule. PO 20 mg BID CHRISTOPHE Administration Empagliflozin 10 mg 01/28/25 09:00 01/28/25 09:07 Empagliflozin 10 Mg Tablet PO 10 mg DAILY CHRISTOPHE Administration Ferrous Sulfate 324 mg 01/28/25 09:00 01/28/25 09:07 Ferrous Sulfate 324 Mg Tablet. PO 324 mg DAILY CHRISTOPHE Administration Heparin Sodium (Porcine) 5,000 unit 01/28/25 09:00 01/28/25 09:09 Heparin Sodium,Porcine 5,000 Unit/Ml Vial SUBCUT 5,000 unit Q12H CHRISTOPHE Administration Ceftriaxone Sodium 1 gm/ 50 mls @ 100 mls/hr 01/27/25 23:00 01/27/25 23:45 Sodium Chloride IV Infused Q24H CHRISTOPHE Infusion Insulin Human Lispro 0 unit 01/27/25 16:30 01/28/25 07:22 Insulin Lispro 100 Unit/Ml 3 Ml Vial SUBCUT Not Given QIDACHS [facility] Protocol Levothyroxine Sodium 125 mcg 01/28/25 09:00 01/28/25 09:13 Levothyroxine Sodium 125 Mcg Tablet PO 125 mcg DAILY@0600 CHRISTOPHE Administration Mirtazapine 30 mg 01/27/25 21:50 01/27/25 22:54 Mirtazapine 30 Mg Tablet PO 30 mg BEDTIME CHRISTOPHE Administration Sodium Chloride 3 ml 01/27/25 08:00 01/28/25 09:13 0.9 % Sodium Chloride Flush 3 Ml Syringe IVFLUSH 3 ml QSHIFT CHRISTOPHE Administration Discontinued Medications Generic Name Dose Route Start Last Admin Trade Name [place] PRN Reason Stop Dose Admin Hydrocortisone Sodium Succinate 100 mg 01/26/25 23:22 01/26/25 23:35 Hydrocortisone Sod Succ/Pf 100 Mg Vial IVPUSH 01/26/25 23:23 100 mg ONCE ONE Administration Ceftriaxone Sodium 2 gm/ 50 mls @ 100 mls/hr 01/26/25 22:55 01/27/25 00:08 Sodium Chloride IV 01/26/25 23:24 Infused ONCE ONE Infusion Levothyroxine Sodium 150 mcg 01/26/25 22:56 01/26/25 23:29 Levothyroxine Sodium 150 Mcg Tablet PO 01/26/25 22:57 150 mcg ONCE ONE Administration Medical Decision Making Medical Decision Making [facility] Narrative: [age] female with vague presentation of slowly declining physical status generalized nonfocal weakness. She appears to be chronic hypothyroid but now TSH is over 100. She does not meet criteria for myxedema coma see calculation below. Vital signs are stable no fever no bradycardia. Incidental finding of leukocytes in the urine without dysuria culture sent. No SIRS or sepsis criteria. Reasonable to give 1 dose of ceftriaxone inpatient team can determine if they want to continue this given the lack of urinary symptoms. No indication for blood cultures. Could be decompensated hypothyroid. Severe hypothyroidism. Unlikely UTI given lack of symptoms but could be contributing to the patient's presentation. ECG independently interpreted: Sinus rhythm, not junctional rhythm as interpreted by ECG machine. Rate 63 no ischemic changes TSH 100. T4, free pending. ___ Myxedema Coma Diagnostic Score from [facility] on 01/26/2025 All calculations should be rechecked by clinician prior to use RESULT SUMMARY: 10 points Myxedema Coma Diagnostic Score Unlikely Diagnosis Myxedema Coma Diagnosis INPUTS: Temperature, ?C (?F) ?> 0 = >35 (>95) Central nervous system effects ?> 10 = Somnolent/lethargic Gastrointestinal findings ?> 0 = Absent Precipitating event ?> 0 = Absent Bradycardia ?> 0 = Absent Other EKG changes ?> 0 = Absent Pericardial/pleural effusion ?> 0 = Absent Pulmonary edema ?> 0 = Absent Cardiomegaly ?> 0 = Absent Hypotension ?> 0 = Absent Hyponatremia ?> 0 = Absent Hypoglycemia ?> 0 = Absent Hypoxemia ?> 0 = Absent Hypercarbia ?> 0 = Absent Decrease in GFR ?> 0 = Absent Admission/Observation Consideration of admission/observation: Escalation of care including admission/observation considered Consult Healthcare Provider Management of the patient was discussed with: Hospitalist Lab Data MDM Lab Attestation statement: I reviewed the patient's lab results. Hypothyroid. Chronic mild anemia. Mild hyperglycemia no electrolyte derangement 01/27/25 04:04 01/27/25 04:04 Labs: Lab Results 01/26/25 01/26/25 01/26/25 Range/Units 18:59 21:54 22:13 WBC 6.2 (4.8-10.8) X10*3/uL RBC 2.89 L (4.20-5.50) X10*6/uL Hgb 9.7 L (12.0-16.0) g/dl Hct 29.5 L (37.0-47.0) % MCV 102.1 H (80.0-98.0) fL MCH 33.6 H (27.0-33.0) pg MCHC 32.9 (31.0-35.0) g/dl RDW 13.1 (11.0-16.0) % Plt Count 160 D (160-400) X10*3/uL MPV 11.0 (9.4-12.3) fL Immature Gran % (Auto) 0.3 (0.0-0.4) % Neut % (Auto) 46.3 (45-73) % Lymph % (Auto) 43.6 H (20-40) % Angelina % (Auto) 5.0 (2-11) % Eos % (Auto) 4.1 H (0-4) % Baso % (Auto) 0.7 (0-2) % Lymph # (Auto) 2.7 (1.2-4.9) X10*3/uL Angelina # (Auto) 0.3 (0.1-1.2) X10*3/uL Eos # (Auto) 0.3 (0.0-0.4) X10*3/uL Baso # (Auto) 0.0 (0.0-0.2) X10*3/uL Abs Immat Gran (auto) 0.02 (0.00-0.03) X10*3/uL Absolute Neuts (auto) 2.9 (2.0-8.3) x10*3/uL Absolute Nucleated RBC 0.000 (0.0-0.012) X10*3/uL Nucleated RBC % (auto) 0.0 (0.0-0.2) /100WBC Sodium 140 (135-145) mmol/L Potassium 4.1 (3.3-5.1) mmol/L Chloride 104 (96-108) mmol/L Carbon Dioxide 25 (22-29) mmol/L Anion Gap 15 (12-20) BUN 12 (9-16) mg/dL Creatinine 0.93 (0.5-1.4) mg/dL Estim Creat Clear Calc 40.9 Estimated GFR 58 Random Glucose 172 H (60-115) mg/dL Calcium 9.9 (8.4-10.2) mg/dL Magnesium 1.9 (1.6-2.6) mg/dL Total Bilirubin 0.1 (0.0-1.0) mg/dL AST 193 H (5-31) U/L ALT 113 H (0-31) U/L Alkaline Phosphatase 115 (39-117) U/L Lactate Dehydrogenase 281 H (122-220) U/L NT-Pro-B Natriuret Pep 70.8 (<300) pg/mL Total Protein 7.4 (6.5-8.0) g/dL Albumin 4.1 (3.5-5.0) g/dL Vitamin B12 624 (200-900) pg/mL Folate 6.7 (> or = 4.0) ng/mL TSH > 100.00 H (0.32-4.0) uIU/mL Free T4 < 0.42 L (0.71-1.85) ng/dL Urine Color Yellow Urine Appearance Clear Urine pH 6.5 (5.0-9.0) Ur Specific [place] <= 1.005 (1.005-1.025) Urine Protein Negative (Neg-Trace) mg/dL Urine Glucose (UA) Negative (Negative) mg/dL Urine Ketones Negative (Negative) mg/dL Urine Blood Negative (Negative) Urine Nitrite Negative (Negative) Ur Leukocyte Esterase Moderate (2+) H (Negative) Urine RBC 0-2 (0-2) /HPF Urine WBC 11-20 H (0-5) /HPF Ur Squamous Epith Cells 0-2 (0-2) /HPF Urine Bacteria 4+ (None Seen) Hyaline Casts 0-2 (0-2) /LPF Influenza Type A (PCR) NEGATIVE (Negative) Influenza Type B (PCR) NEGATIVE (Negative) RSV RNA Qual (PCR) NEGATIVE (Negative) SARS-CoV-2 RNA (RT-PCR) NEGATIVE (Negative) Chronic Conditions Patient?s care impacted by: Diabetes Discharge Plan Discharge Clinical Impression: Acute metabolic encephalopathy Patient Disposition: Admitted As Inpatient Interventions: Admission Worksheet (ED) Last Done: 01/27/25 05:37 Discharge Date/Time: 01/27/25 08:43
[2025-01-26 22:00] LABS: MANUAL DIFF FLAG NO
[2025-01-26 22:01] LABS: Hematocrit 29.5 % (37.0-47.0); Hemoglobin 9.7 g/dl (12.0-16.0); Imm Gran Abs Auto 0.02 X10*3/uL (0.00-0.03); Imm Gran Pct Auto 0.3 % (0.0-0.4); Lymphocytes Absolute Auto 2.7 X10*3/uL (1.2-4.9); Mean Corpuscular HGB Conc 32.9 g/dl (31.0-35.0); Mean Corpuscular Hemoglobin 33.6 pg (27.0-33.0); Mean Corpuscular Volume 102.1 fL (80.0-98.0); NRBC Abs Auto 0.000 X10*3/uL (0.0-0.012); NRBC Pct Auto 0.0 /100WBC (0.0-0.2); Platelet Count 160 X10*3/uL (160-400); Red Blood Count 2.89 X10*6/uL (4.20-5.50); White Blood Count 6.2 X10*3/uL (4.8-10.8)
[2025-01-26 22:11] VITALS: BP 140/66; PULSE 66; RESP 17; O2SAT 93
[2025-01-26 22:20] LABS: Appearance Urine Clear; Glucose Urine UA Negative (Negative); PH 6.5 (5.0-9.0); Specific Gravity - Urine <= 1.005 (1.005-1.025); UMIC TRIGGER UACC YES
[2025-01-26 22:23] LABS: Alanine Aminotransferase 113 U/L (0-31); Albumin Level 4.1 g/dL (3.5-5.0); Alkaline Phosphatase 115 U/L (39-117); Anion Gap 15 (12-20); Aspartate Amino Transferase 193 U/L (5-31); Blood Urea Nitrogen 12 mg/dL (9-16); Calcium 9.9 mg/dL (8.4-10.2); Carbon Dioxide 25 mmol/L (22-29); Chloride 104 mmol/L (96-108); Creatinine Clr Calc Pharmacy 40.9; Estimated Glomerular Filt Rate 58; Magnesium 1.9 mg/dL (1.6-2.6); Potassium 4.1 mmol/L (3.3-5.1); Sodium 140 mmol/L (135-145); Total Protein 7.4 g/dL (6.5-8.0)
[2025-01-26 22:31] LABS: UACC Culture Trigger YES
[2025-01-26 22:39] LABS: Thyroid Stimulating Hormone > 100.00 uIU/mL (0.32-4.0)
[2025-01-26 22:53] LABS: Folate 6.7 ng/mL (> or = 4.0); Vitamin B12 624 pg/mL (200-900)
--- NOTE | 2025-01-26 22:57 | ECG_ITS ---
Test Reason : HYPOTHYROID Blood Pressure : */* mmHG Vent. Rate : 62 BPM Atrial Rate : * BPM P-R Int : * ms QRS Dur : 80 ms QT Int : 388 ms P-R-T Axes : * 46 39 degrees QTcB Int : 393 ms Artifact in tracing Normal sinus rhythm Nonspecific T wave abnormality Abnormal ECG When compared with ECG of 06-Aug-2024 11:39, No significant changes seen Referred By: Anoop Bagley Electronically Signed By: JENNIFER FABIAN
--- NOTE | 2025-01-26 23:06 | PC.NURSE ---
Per provider, no blood cultures needed at this time.
[2025-01-26 23:35] LABS: Free T4 (Free Thyroxine) < 0.42 ng/dL (0.71-1.85)
[2025-01-26] MEDS: Hydrocortisone Sod Succ/PF 100 MG VIAL IVPUSH (23:35)
--- NOTE | 2025-01-27 00:08 | PM.IMHP ---
History of Present Illness Date of Service: 01/27/25 Attending physician on admission: Mona Greenfield Chief Complaint: Generalized weakness, confusion Miriam Sena is 84 years old woman with past medical history significant for hypothyroidism noncompliant with levothyroxine, vitamin B12 deficiency on B12 injections, vitamin D deficiency, type 2 diabetes mellitus on sitagliptin and metformin and depression presents to the emergency department accompanied by her daughters due to generalized weakness and tiredness to have has been getting worse over the last week. The patient denied any headache, dizziness, chest pain, nausea, vomiting or diarrhea. There are no focal weakness, speech difficulty, facial droop or acute visual disturbances. She did complain of some shortness on breath with exertion. Daughter is commented that she has been confused. At the beginning of this current month, the patient was found to have over hypothyroidism and his levothyroxine dose was increased to 125 mcg from 112 mcg. According to daughters the patient does not like to take her morning medications including the levothyroxine. Sometimes her daughter finds her pills on the floor. Patient denied tobacco smoking, alcohol abuse or illicit drug use. In the ED, she was found to have normal vital signs. Blood workup showed no leukocytosis. Hemoglobin is 9.7, hematocrit 29.9 and MCV 102.1. Platelets are 160. Electrolytes are normal. BUN is 12 and creatinine 0.93. Glucose 172. Transaminases are elevated, bilirubin and alk-phos are normal. TSH is over 100 and free T4 less than 0.42. UA is consistent with UTI. Viral testing is negative for COVID-19, influenza and RSV. CXR showed mild bibasilar crackles and nonspecific mild interstitial opacities and might reflect mild edema. ECG showed normal sinus rhythm, nonspecific ST changes and normal QT interval. ED tx: Ceftriaxone 2 g, levothyroxine 150 mcg p.o., Solu-Cortef 100 mg IV Review of Systems Review of Systems: All 12 systems were reviewed and normal except as noted in HPI. [facility] Surgical History (Updated 07/12/21 @ 11:38 by OVI Neil) H/O lumbar discectomy History of tubal ligation History of cholecystectomy Social History Smoked in Last 30 Days: No Use of substances other than those prescribed or required for medical reasons: No Advance Directives: No Advance Directives Information Provided: Yes Meds Allergies Allergy/AdvReac Type Severity Reaction Status Date / Time acetaminophen (Tylenol) Allergy Unknown Abdominal Verified 01/26/25 18:21 Pain albuterol (ALBUTEROL) Allergy Unknown VIJAYA Verified 01/26/25 18:21 ibuprofen (IBUPROFEN) Allergy Unknown HYPER Verified 01/26/25 18:21 oxycodone (OXYCODONE) Allergy Unknown RASH, ITCHY Verified 01/26/25 18:21 Albuterol Allergy Unknown Anxiety Uncoded 07/15/21 09:53 Home Medications ?Medication ?Instructions ?Recorded ?Confirmed ?Last Taken ?Type cholecalciferol (vitamin D3) 25 25 mcg PO DAILY 07/15/21 07/15/21 Unknown History mcg (1,000 unit) capsule docusate sodium 100 mg capsule 100 mg PO DAILY 07/15/21 07/15/21 Unknown History (Colace) duloxetine 20 mg capsule,delayed 20 mg PO BID 07/15/21 07/15/21 Unknown History release levothyroxine 125 mcg capsule 125 mcg PO DAILY 07/15/21 07/15/21 Unknown History melatonin 5 mg capsule mg PO .qhs 07/15/21 07/15/21 Unknown History metformin 1,000 mg tablet 1,000 mg PO BID 07/15/21 07/15/21 Unknown History mirtazapine 30 mg tablet 30 mg PO BEDTIME 07/15/21 07/15/21 Unknown History sitagliptin phosphate 100 mg 100 mg PO DAILY 07/15/21 07/15/21 Unknown History tablet (Januvia) Physical Exam Vital Signs and Narrative: Vital Signs: Last Vital Signs Temp 98.0 F 01/26/25 19:52 Pulse 66 01/26/25 22:11 Resp 17 01/26/25 22:11 BP 140/66 H 01/26/25 22:11 Pulse Ox 93 01/26/25 22:11 O2 Del Method Room Air 01/26/25 22:11 BMI result Body Mass Index 36.9 General: Alert, oriented, in no acute distress. Looks tired. Well nourished and cooperative. Afebrile. HEENT: Head normocephalic, atraumatic. PER, EOMI. Sclerae anicteric, conjunctiva clear. Oropharynx without erythema or exudate. Mucous membranes dry Neck: Supple, no lymphadenopathy, or JVD. Heart: RRR, no murmurs, rubs or gallops. Lungs: Clear to auscultation bilaterally. No wheezes, rales, or rhonchi. Normal respiratory effort. Abdomen: Soft, non tenderness, nondistended, normoactive bowel sounds. No hepatosplenomegaly, masses or masses. Extremities: No calf tenderness bilaterally, no swelling Musculoskeletal: Full range of motion. No joint swelling, deformity, or tenderness. Generalized atrophy and weakness. Skin: Warm/Dry. No pallor. No jaundice. Neurologic: Alert & oriented to place and person. Able to tell me the month but not the year. Moving all extremities spontaneously. Normal speech. Psychological: Normal mood and affect. Thought process coherent. Results Labs 01/26/25 21:54 01/26/25 21:54 Labs: Laboratory Results - last 24 hr 01/26/25 01/26/25 01/26/25 18:59 21:54 22:13 MCV 102.1 H MCH 33.6 H MCHC 32.9 RDW 13.1 Plt Count 160 D MPV 11.0 Immature Gran % (Auto) 0.3 Neut % (Auto) 46.3 Lymph % (Auto) 43.6 H [place] % (Auto) 5.0 Eos % (Auto) 4.1 H Baso % (Auto) 0.7 Lymph # (Auto) 2.7 [place] # (Auto) 0.3 Eos # (Auto) 0.3 Baso # (Auto) 0.0 Abs Immat Gran (auto) 0.02 Absolute Neuts (auto) 2.9 Absolute Nucleated RBC 0.000 Nucleated RBC % (auto) 0.0 Anion Gap 15 Estim Creat Clear Calc 40.9 Estimated GFR 58 Random Glucose 172 H Calcium 9.9 Magnesium 1.9 Total Bilirubin 0.1 AST 193 H ALT 113 H Alkaline Phosphatase 115 Total Protein 7.4 Albumin 4.1 Vitamin B12 624 Folate 6.7 TSH > 100.00 H Free T4 < 0.42 L Urine Color Yellow Urine Appearance Clear Urine pH 6.5 Ur Specific [place] <= 1.005 Urine Protein Negative Urine Glucose (UA) Negative Urine Ketones Negative Urine Blood Negative Urine Nitrite Negative Ur Leukocyte Esterase Moderate (2+) H Urine RBC 0-2 Urine WBC 11-20 H Ur Squamous Epith Cells 0-2 Urine Bacteria 4+ Hyaline Casts 0-2 Influenza Type A (PCR) NEGATIVE Influenza Type B (PCR) NEGATIVE RSV RNA Qual (PCR) NEGATIVE SARS-CoV-2 RNA (RT-PCR) NEGATIVE Assessment and Plan (1) Acute metabolic encephalopathy: Status: Acute (2) Hypothyroid: Qualifiers: Hypothyroidism type: acquired Qualified Code(s): E03.9 - Hypothyroidism, unspecified Status: Acute Plan Miriam Sena is 84 y/o woman who presents with: Acute metabolic encephalopathy--> overt hypothyroidism due to noncompliance with levothyroxine. ?absorption issues (pt has vitamin B12 and D deficiency despite eating well). Myxedema coma diagnostic score is 0-10. Neuro checks. Continue current home dose (125 mcg). 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 Check lipid panel. Macrocytic anemia due to vitamin B12 deficiency. Check intrinsic factor and MMA ?pernicious anemia. Continue to monitor. Type 2 diabetes mellitus. Continue metformin and sitagliptin. BG checks before meals at bedtime. Insulin sliding scale. Diabetic diet. Check hemoglobin A1c. History of vitamin-D and B12 deficiency. Taking vitamin-D orally and getting B12 injections. Code status: Full DVT prophylaxis: Heparin Patient will need hospitalization for at least 2 midnights for acute metabolic encephalopathy treatment due to overt hypothyroidism and close monitoring of mental status. Quality Stroke Does the patient have a stroke diagnosis?: No VTE Prior VTE?: No VTE Risk Level:: Medical - moderate - high VTE Device Contraindication: Treatment Not Indicated VTE Drug Contraindication: N/A - Med Ordered
[2025-01-27 01:13] LABS: NT Pro B Type Natriuretic Pept 70.8 pg/mL (<300)
[2025-01-27 04:09] LABS: MANUAL DIFF FLAG NO
[2025-01-27 04:10] LABS: Hematocrit 31.8 % (37.0-47.0); Hemoglobin 10.7 g/dl (12.0-16.0); Imm Gran Abs Auto 0.02 X10*3/uL (0.00-0.03); Imm Gran Pct Auto 0.3 % (0.0-0.4); Lymphocytes Absolute Auto 2.0 X10*3/uL (1.2-4.9); Mean Corpuscular HGB Conc 33.6 g/dl (31.0-35.0); Mean Corpuscular Hemoglobin 34.0 pg (27.0-33.0); Mean Corpuscular Volume 101.0 fL (80.0-98.0); NRBC Abs Auto 0.000 X10*3/uL (0.0-0.012); NRBC Pct Auto 0.0 /100WBC (0.0-0.2); Platelet Count 181 X10*3/uL (160-400); Red Blood Count 3.15 X10*6/uL (4.20-5.50); White Blood Count 6.4 X10*3/uL (4.8-10.8)
[2025-01-27 04:21] VITALS: BP 134/74; PULSE 71; RESP 15; TEMP 36.7; O2SAT 95
[2025-01-27 04:24] LABS: Anion Gap 16 (12-20); Blood Urea Nitrogen 12 mg/dL (9-16); Calcium 9.9 mg/dL (8.4-10.2); Carbon Dioxide 24 mmol/L (22-29); Chloride 103 mmol/L (96-108); Cholesterol 142 mg/dL (<200); Creatinine Clr Calc Pharmacy 45.3; Estimated Glomerular Filt Rate > 60; HDL Cholesterol 50 mg/dL (>40); Potassium 4.4 mmol/L (3.3-5.1); Sodium 139 mmol/L (135-145); Triglycerides 105 mg/dL (<150)
[2025-01-27 05:04] LABS: Folate 7.5 ng/mL (> or = 4.0); Vitamin B12 726 pg/mL (200-900)
[2025-01-27 07:21] LABS: Reflex LDLD? No
[2025-01-27 08:22] VITALS: BP 132/78; PULSE 77; RESP 17; TEMP 36.8; O2SAT 95
[2025-01-27 09:01] VITALS: BP 150/68; PULSE 70; RESP 18; TEMP 36.3; O2SAT 95
--- NOTE | 2025-01-27 09:25 | MHC.CM.PN ---
IMM 01/27/25 DX Acute Metabolic Encephalopathy UTI Dtr lives with patient. She provides assist with ADLS, all functional mobility, and homemaking. DME Tub bench does not use. Patient does not have an AD. She ambulates with assist of a person. No formal services in place. DP Home with family support vs home services. A family member will provide transportation home. PCP Regina Soto. HCP is not on file.
[2025-01-27 11:45] LABS: Glucose, Whole Blood 179 mg/dL (60-115)
--- NOTE | 2025-01-27 11:48 | PHA.MEDREC ---
Pharmacy Consult ? Medication Reconciliation Pharmacy has completed the medication reconciliation. Patient and family didnt know medications. Utilized claim history
[2025-01-27 15:21] VITALS: BP 137/63; PULSE 72; RESP 16; TEMP 36.2; O2SAT 94
[2025-01-27 16:44] LABS: Glucose, Whole Blood 241 mg/dL (60-115)
[2025-01-27] MEDS: 0.9 % Sodium Chloride Flush 3 ML SYRINGE IVFLUSH ×2 (16:56→21:04)
--- NOTE | 2025-01-27 18:49 | P.PNIM_ITS ---
Subjective Subjective Date of Service: 01/27/25 Interval History: Reports continued weakness and tiredness Family at bedside, state she refuses morning meds, including levothyroxine, since she does not think she needs them Often confuses the date/time at baseline according to family Currently is oriented to person and place but not to time Feels depressed; reports has felt this way since childhood Denies SI/HI Review of Systems Review of Systems: Yes all other systems are reviewed and are negative Physical Exam 2 Exam: Exam: General: Alert and oriented to self and place, not to time. In no acute distress Resp: CTA bilaterally CVS: S1, S2, RRR GI: +BS, NT, no distention Skin: Warm, dry Neuro: Cranial nerves II-XII grossly intact bilaterally. Motor grossly intact bilaterally Extremities: No edema Psych: Appropriate affect Vital Signs: Vital Signs: Last Vital Signs Temp 97.1 F 01/27/25 15:21 Pulse 72 01/27/25 15:21 Resp 16 01/27/25 15:21 BP 137/63 01/27/25 15:21 Pulse Ox 94 01/27/25 15:21 O2 Del Method Room Air 01/27/25 15:21 BMI result Body Mass Index 36.9 Objective Data Active Medications Acetaminophen (Acetaminophen 325 Mg Tablet) 650 mg PO Q6H PRN PRN Reason: Pain, Mild 1-3,fever,headache Calcium Carbonate (Calcium Carbonate 750 Mg Tab.Chew) 750 mg PO Q4H PRN PRN Reason: Heartburn Dextrose (Dextrose 50 % 25 Gm/50 Ml Syringe) 25 gm IVPUSH Q15M PRN; Protocol PRN Reason: per Hypoglycemia Standing Ord. Glucose (Glucose Gel 15 Gm Gel..Gram.) 15 gm PO Q15M PRN; Protocol PRN Reason: per Hypoglycemia Standing Ord. Heparin Sodium (Porcine) (Heparin Sodium,Porcine 5,000 Unit/Ml Vial) 5,000 unit SUBCUT Q12H [facility] Insulin Human Lispro (Insulin Lispro 100 Unit/Ml 3 Ml Vial) 0 unit SUBCUT QIDACHS [facility]; Protocol Last Admin: 01/27/25 16:55 Dose: 4 unit Documented By: GRAZIC Magnesium Hydroxide (Milk Of Magnesia 30 Ml Oral.Susp) 30 ml PO DAILY PRN PRN Reason: Constipation Melatonin (Melatonin 3 Mg Tablet) 6 mg PO BEDTIME PRN PRN Reason: Insomnia Sodium Chloride (0.9 % Sodium Chloride Flush 3 Ml Syringe) 3 ml IVFLUSH QSHIFT [facility] Last Admin: 01/27/25 16:56 Dose: 3 ml Documented By: MINESH Labs 01/27/25 04:04 01/27/25 04:04 Labs: Laboratory Results - last 24 hr 01/26/25 01/26/25 01/26/25 18:59 21:54 22:13 MCV 102.1 H MCH 33.6 H MCHC 32.9 RDW 13.1 Plt Count 160 D MPV 11.0 Immature Gran % (Auto) 0.3 Neut % (Auto) 46.3 Lymph % (Auto) 43.6 H [place] % (Auto) 5.0 Eos % (Auto) 4.1 H Baso % (Auto) 0.7 Lymph # (Auto) 2.7 [place] # (Auto) 0.3 Eos # (Auto) 0.3 Baso # (Auto) 0.0 Abs Immat Gran (auto) 0.02 Absolute Neuts (auto) 2.9 Absolute Nucleated RBC 0.000 Nucleated RBC % (auto) 0.0 Anion Gap 15 Estim Creat Clear Calc 40.9 Estimated GFR 58 POC Glucose Random Glucose 172 H Estimat Average Glucose Hemoglobin A1c % Calcium 9.9 Magnesium 1.9 Total Bilirubin 0.1 AST 193 H ALT 113 H Alkaline Phosphatase 115 Lactate Dehydrogenase 281 H NT-Pro-B Natriuret Pep 70.8 Total Protein 7.4 Albumin 4.1 Triglycerides Cholesterol LDL Cholesterol, Calc HDL Cholesterol Vitamin B12 624 25-OH Vitamin D Total Folate 6.7 TSH > 100.00 H Free T4 < 0.42 L Urine Color Yellow Urine Appearance Clear Urine pH 6.5 Ur Specific [place] <= 1.005 Urine Protein Negative Urine Glucose (UA) Negative Urine Ketones Negative Urine Blood Negative Urine Nitrite Negative Ur Leukocyte Esterase Moderate (2+) H Urine RBC 0-2 Urine WBC 11-20 H Ur Squamous Epith Cells 0-2 Urine Bacteria 4+ Hyaline Casts 0-2 Influenza Type A (PCR) NEGATIVE Influenza Type B (PCR) NEGATIVE RSV RNA Qual (PCR) NEGATIVE SARS-CoV-2 RNA (RT-PCR) NEGATIVE 01/27/25 01/27/25 01/27/25 01:18 04:04 11:41 MCV 101.0 H MCH 34.0 H MCHC 33.6 RDW 13.1 Plt Count 181 MPV 11.1 Immature Gran % (Auto) 0.3 Neut % (Auto) 64.9 Lymph % (Auto) 31.4 [place] % (Auto) 1.7 L Eos % (Auto) 1.1 Baso % (Auto) 0.6 Lymph # (Auto) 2.0 [place] # (Auto) 0.1 Eos # (Auto) 0.1 Baso # (Auto) 0.0 Abs Immat Gran (auto) 0.02 Absolute Neuts (auto) 4.2 Absolute Nucleated RBC 0.000 Nucleated RBC % (auto) 0.0 Anion Gap 16 Estim Creat Clear Calc 45.3 Estimated GFR > 60 POC Glucose 179 H Random Glucose 174 H Estimat Average Glucose 163 Hemoglobin A1c % 7.3 H Calcium 9.9 Magnesium Total Bilirubin AST ALT Alkaline Phosphatase Lactate Dehydrogenase NT-Pro-B Natriuret Pep Total Protein Albumin Triglycerides 105 Cholesterol 142 LDL Cholesterol, Calc 71 HDL Cholesterol 50 Vitamin B12 726 25-OH Vitamin D Total 30.5 Folate 7.5 TSH Free T4 Urine Color Urine Appearance Urine pH Ur Specific [place] Urine Protein Urine Glucose (UA) Urine Ketones Urine Blood Urine Nitrite Ur Leukocyte Esterase Urine RBC Urine WBC Ur Squamous Epith Cells Urine Bacteria Hyaline Casts Influenza Type A (PCR) Influenza Type B (PCR) RSV RNA Qual (PCR) SARS-CoV-2 RNA (RT-PCR) 01/27/25 16:35 MCV MCH MCHC RDW Plt Count MPV Immature Gran % (Auto) Neut % (Auto) Lymph % (Auto) Giles % (Auto) Eos % (Auto) Baso % (Auto) Lymph # (Auto) Giles # (Auto) Eos # (Auto) Baso # (Auto) Abs Immat Gran (auto) Absolute Neuts (auto) Absolute Nucleated RBC Nucleated RBC % (auto) Anion Gap Estim Creat Clear Calc Estimated GFR POC Glucose 241 H Random Glucose Estimat Average Glucose Hemoglobin A1c % Calcium Magnesium Total Bilirubin AST ALT Alkaline Phosphatase Lactate Dehydrogenase NT-Pro-B Natriuret Pep Total Protein Albumin Triglycerides Cholesterol LDL Cholesterol, Calc HDL Cholesterol Vitamin B12 25-OH Vitamin D Total Folate TSH Free T4 Urine Color Urine Appearance Urine pH Ur Specific [place] Urine Protein Urine Glucose (UA) Urine Ketones Urine Blood Urine Nitrite Ur Leukocyte Esterase Urine RBC Urine WBC Ur Squamous Epith Cells Urine Bacteria Hyaline Casts Influenza Type A (PCR) Influenza Type B (PCR) RSV RNA Qual (PCR) SARS-CoV-2 RNA (RT-PCR) Microbiology Microbiology Results: Microbiology 01/26/25 22:32 Urine Culture - Preliminary Urine clean catch Culture in progress. 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 Type 2 diabetes mellitus A1C 7.3 Hold metformin Continue sitagliptin SSI, diabetic diet. History of vitamin-D and B12 deficiency Continue home supplementation Pt requires continued hospitalization for treatment of overt hypothyroidism and close monitoring. Quality Stroke Does the patient have a stroke diagnosis?: No VTE Prior VTE?: No VTE Risk Level:: Medical - moderate - high VTE Device Contraindication: Treatment Not Indicated VTE Drug Contraindication: N/A - Med Ordered
[2025-01-27 20:00] VITALS: BP 108/57; PULSE 66; RESP 12; TEMP 36.8; O2SAT 94
[2025-01-27 20:42] LABS: Glucose, Whole Blood 259 mg/dL (60-115)
[2025-01-28 03:15] VITALS: BP 157/75; PULSE 59; RESP 16; TEMP 36.3; O2SAT 96
[2025-01-28 07:34] LABS: Glucose, Whole Blood 96 mg/dL (60-115)
[2025-01-28 07:44] VITALS: BP 172/74; PULSE 64; RESP 15; TEMP 37; O2SAT 95
[2025-01-28] MEDS: Ferrous Sulfate 324 MG TABLET.DR PO (09:07)
[2025-01-28] MEDS: 0.9 % Sodium Chloride Flush 3 ML SYRINGE IVFLUSH ×2 (09:13→18:22)
[2025-01-28 09:33] VITALS: PULSE 73; O2SAT 94
[2025-01-28 10:54] VITALS: BP 141/74
[2025-01-28 11:35] LABS: Glucose, Whole Blood 160 mg/dL (60-115)
--- NOTE | 2025-01-28 14:04 | MHC.CM.PN ---
Addendum entered by Ginette Santos 01/28/25 14:25: A bed has been offered @ [facility]. The patient and family accept the bed. The request has been made to initiate insurance authorization. DP to [place] for STR via BLS. Original Note: Change in DP. Patient will not go home with services. She will dc to STR. A bed search has been started. DP STR via BLS.
--- NOTE | 2025-01-28 14:38 | P.PNIM_ITS ---
Subjective Subjective Date of Service: 01/28/25 Interval History: Seen and evaluated this morning Continues to be pleasantly confused to date and situation Discussed with family and she likely has early dementia; currently appears back to baseline PT evaluation recommended short-term rehab which family would like to pursue Urine culture growing Gram-negative rods Has been taking medication while the floor Reports feeling tired and weak, otherwise no complaints Review of Systems Review of Systems: Yes all other systems are reviewed and are negative Physical Exam 2 Exam: Exam: General: Alert and oriented to self and place, not to time or situation. In no acute distress. elderly Resp: CTA bilaterally CVS: S1, S2, RRR GI: +BS, NT, no distention Skin: Warm, dry Neuro: Cranial nerves II-XII grossly intact bilaterally. Motor grossly intact bilaterally. Global weakness Extremities: No edema Psych: Pleasantly confused Vital Signs: Vital Signs: Last Vital Signs Temp 98.6 F 01/28/25 07:44 Pulse 73 01/28/25 09:33 Resp 15 01/28/25 07:44 BP 141/74 H 01/28/25 10:54 Pulse Ox 94 01/28/25 09:33 O2 Del Method Room Air 01/28/25 07:44 BMI result Body Mass Index 36.9 Objective Data Active Medications Acetaminophen (Acetaminophen 325 Mg Tablet) 650 mg PO Q6H PRN PRN Reason: Pain, Mild 1-3,fever,headache Amlodipine Besylate (Amlodipine Besylate 5 Mg Tablet) 5 mg PO DAILY [facility]; Protocol Last Admin: 01/28/25 09:07 Dose: 5 mg Documented By: DENISE Atorvastatin Calcium (Atorvastatin Calcium 40 Mg Tablet) 40 mg PO BEDTIME [facility] Last Admin: 01/27/25 22:53 Dose: 40 mg Documented By: CELESTINA Calcium Carbonate (Calcium Carbonate 750 Mg Tab.Chew) 750 mg PO Q4H PRN PRN Reason: Heartburn Dextrose (Dextrose 50 % 25 Gm/50 Ml Syringe) 25 gm IVPUSH Q15M PRN; Protocol PRN Reason: per Hypoglycemia Standing Ord. Docusate Sodium (Docusate Sodium 100 Mg Capsule) 100 mg PO DAILY [facility] Last Admin: 01/28/25 09:07 Dose: 100 mg Documented By: DENISE Duloxetine HCl (Duloxetine Hcl 20 Mg Capsule.) 20 mg PO BID [facility] Last Admin: 01/28/25 09:07 Dose: 20 mg Documented By: DENISE Empagliflozin (Empagliflozin 10 Mg Tablet) 10 mg PO DAILY [facility] Last Admin: 01/28/25 09:07 Dose: 10 mg Documented By: DENISE Ferrous Sulfate (Ferrous Sulfate 324 Mg Tablet.Dr) 324 mg PO DAILY [facility] Last Admin: 01/28/25 09:07 Dose: 324 mg Documented By: DENISE Glucose (Glucose Gel 15 Gm Gel..Gram.) 15 gm PO Q15M PRN; Protocol PRN Reason: per Hypoglycemia Standing Ord. Heparin Sodium (Porcine) (Heparin Sodium,Porcine 5,000 Unit/Ml Vial) 5,000 unit SUBCUT Q12H [facility] Last Admin: 01/28/25 09:09 Dose: 5,000 unit Documented By: DENISE Ceftriaxone Sodium 1 gm/ (Sodium Chloride) 50 mls @ 100 mls/hr IV Q24H [facility] Last Infusion: 01/27/25 23:45 Dose: Infused Documented By: CELESTINA Insulin Human Lispro (Insulin Lispro 100 Unit/Ml 3 Ml Vial) 0 unit SUBCUT QIDACHS [facility]; Protocol Last Admin: 01/28/25 12:03 Dose: 2 unit Documented By: DENISE Levothyroxine Sodium (Levothyroxine Sodium 125 Mcg Tablet) 125 mcg PO DAILY@0600 [facility] Last Admin: 01/28/25 09:13 Dose: 125 mcg Documented By: DENISE Magnesium Hydroxide (Milk Of Magnesia 30 Ml Oral.Susp) 30 ml PO DAILY PRN PRN Reason: Constipation Melatonin (Melatonin 3 Mg Tablet) 6 mg PO BEDTIME PRN PRN Reason: Insomnia Mirtazapine (Mirtazapine 30 Mg Tablet) 30 mg PO BEDTIME [facility] Last Admin: 01/27/25 22:54 Dose: 30 mg Documented By: CELESTINA Sodium Chloride (0.9 % Sodium Chloride Flush 3 Ml Syringe) [facility] Last Admin: 01/28/25 09:13 Dose: 3 ml Documented By: DENISE Labs 01/27/25 04:04 01/27/25 04:04 Labs: Laboratory Results - last 24 hr 01/27/25 01/27/25 01/28/25 16:35 20:20 07:16 POC Glucose 241 H 259 H 96 11/18/25 11:28 POC Glucose 160 H Microbiology Microbiology Results: Microbiology 01/26/25 22:32 Urine Culture - Preliminary Urine clean catch Gram negative regi Assessment and Plan (1) Hypothyroid: Status: Acute (2) Acute metabolic encephalopathy: Status: Acute Plan Miriam Sena is 84 y/o woman who presents with: Acute metabolic encephalopathy Possibly multifactorial: in the setting of UTI and 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 likely contributing Pt weak, lethargic, and initially more confused than baseline AO x2, not to time or situation; likely has underlying early dementia; currently back to baseline per family at bedside Myxedema coma diagnostic score is 0-10 Continue current home dose of levothyroxine 125 mcg Will need recheck in 4-6 weeks and followup with PCP and blind eyeletter Of note, pt has routinely been refusing morning meds, including levothyroxine Acute UTI UA concerning for UTI Urine culture growing gram negative rods Continue ceftriaxone, day 3 Weakness PT evaluation recommend STR Currently waiting for placement Macrocytic anemia Due to vitamin B12 deficiency Check intrinsic factor and MMA Currently stable, continue to monitor Type 2 diabetes mellitus A1C 7.3 Hold metformin Continue sitagliptin SSI, diabetic diet History of vitamin-D and B12 deficiency Continue home supplementation Pt requires continued hospitalization for treatment of overt hypothyroidism and close monitoring. Pt will be going to short-term rehab and we are currently awaiting prior authorization and placement. Quality Stroke Does the patient have a stroke diagnosis?: No VTE Prior VTE?: No VTE Risk Level:: Medical - moderate - high VTE Device Contraindication: Treatment Not Indicated VTE Drug Contraindication: N/A - Med Ordered
[2025-01-28 16:19] VITALS: BP 140/70; PULSE 66; RESP 18; TEMP 36.6; O2SAT 95
[2025-01-28 16:31] LABS: Glucose, Whole Blood 213 mg/dL (60-115)
[2025-01-28 19:44] VITALS: BP 139/71; PULSE 62; RESP 17; TEMP 36; O2SAT 95
[2025-01-28 21:05] LABS: Glucose, Whole Blood 113 mg/dL (60-115)
[2025-01-29 03:43] VITALS: BP 138/66; PULSE 66; RESP 17; TEMP 36.1; O2SAT 96
[2025-01-29 07:03] VITALS: BP 115/61; PULSE 64; RESP 16; TEMP 36.6; O2SAT 95
[2025-01-29 07:17] VITALS: BP 102/54; PULSE 62; RESP 16; TEMP 36.4; O2SAT 95
[2025-01-29 07:27] LABS: Glucose, Whole Blood 122 mg/dL (60-115)
--- NOTE | 2025-01-29 08:10 | HO.PM.IMPN ---
Subjective Subjective Date of Service: 01/29/25 Interval History: Urine culture growing Klebsiella pneumoniae susceptible to ceftriaxone Physical Exam Vital Signs: Vital Signs: Last Vital Signs Temp 97.6 F 01/29/25 07:17 Pulse 62 01/29/25 07:17 Resp 16 01/29/25 07:17 BP 102/54 L 01/29/25 07:17 Pulse Ox 95 01/29/25 07:17 O2 Del Method Room Air 01/29/25 07:17 BMI result Body Mass Index 36.9 Objective Data Active Medications Acetaminophen (Acetaminophen 325 Mg Tablet) 650 mg PO Q6H PRN PRN Reason: Pain, Mild 1-3,fever,headache Amlodipine Besylate (Amlodipine Besylate 5 Mg Tablet) 5 mg PO DAILY [facility]LY [facility], [facility]; Protocol Last Admin: 01/28/25 09:07 Dose: 5 mg Documented By: DENISE Atorvastatin Calcium (Atorvastatin Calcium 40 Mg Tablet) 40 mg PO BEDTIME [facility] Last Admin: 01/28/25 21:10 Dose: 40 mg Documented By: CELESTINA Calcium Carbonate (Calcium Carbonate 750 Mg Tab.Chew) 750 mg PO Q4H PRN PRN Reason: Heartburn Dextrose (Dextrose 50 % 25 Gm/50 Ml Syringe) 25 gm IVPUSH Q15M PRN; Protocol PRN Reason: per Hypoglycemia Standing Ord. Docusate Sodium (Docusate Sodium 100 Mg Capsule) 100 mg PO DAILY [facility] Last Admin: 01/28/25 09:07 Dose: 100 mg Documented By: DENISE Duloxetine HCl (Duloxetine Hcl 20 Mg Capsule.) 20 mg PO BID [facility] Last Admin: 01/28/25 21:10 Dose: 20 mg Documented By: CELESTINA Empagliflozin (Empagliflozin 10 Mg Tablet) 10 mg PO DAILY [facility] Last Admin: 01/28/25 09:07 Dose: 10 mg Documented By: DENISE Ferrous Sulfate (Ferrous Sulfate 324 Mg Tablet.) 324 mg PO DAILY [facility] Last Admin: 01/28/25 09:07 Dose: 324 mg Documented By: DENISE Glucose (Glucose Gel 15 Gm Gel..Gram.) 15 gm PO Q15M PRN; Protocol PRN Reason: per Hypoglycemia Standing Ord. Heparin Sodium (Porcine) (Heparin Sodium,Porcine 5,000 Unit/Ml Vial) 5,000 unit SUBCUT Q12H [facility] Last Admin: 01/28/25 21:10 Dose: 5,000 unit Documented By: CELESTINA Ceftriaxone Sodium 1 gm/ (Sodium Chloride) 50 mls @ 100 mls/hr IV Q24H [facility] Last Infusion: 01/28/25 23:05 Dose: Infused Documented By: CELESTINA Insulin Human Lispro (Insulin Lispro 100 Unit/Ml 3 Ml Vial) 0 unit SUBCUT QIDACHS [facility]; Protocol Last Admin: 01/29/25 07:28 Dose: Not Given Documented By: RANDY Non-Admin Reason: No Insulin Coverage Levothyroxine Sodium (Levothyroxine Sodium 125 Mcg Tablet) 125 mcg PO DAILY@0600 [facility] Last Admin: 01/29/25 05:10 Dose: 125 mcg Documented By: NATHANIEL Magnesium Hydroxide (Milk Of Magnesia 30 Ml Oral.Susp) 30 ml PO DAILY PRN PRN Reason: Constipation Melatonin (Melatonin 3 Mg Tablet) 6 mg PO BEDTIME PRN PRN Reason: Insomnia Mirtazapine (Mirtazapine 30 Mg Tablet) 30 mg PO BEDTIME [facility] Last Admin: 01/28/25 21:10 Dose: 30 mg Documented By: CELESTINA Sodium Chloride (0.9 % Sodium Chloride Flush 3 Ml Syringe) 3 ml IVFLUSH QSHIFT [facility] Last Admin: 01/28/25 23:06 Dose: Not Given Documented By: CELESTINA Non-Admin Reason: Previously Administered Labs 01/27/25 04:04 01/27/25 04:04 Labs: Laboratory Results - last 24 hr 01/28/25 01/28/25 01/28/25 11:28 16:18 21:00 POC Glucose 160 H 213 H 113 01/29/25 07:21 POC Glucose 122 H Microbiology Microbiology Results: Microbiology 01/26/25 22:32 Urine Culture - Final Urine clean catch Klebsiella pneumoniae Quality Stroke Does the patient have a stroke diagnosis?: No VTE Prior VTE?: No VTE Risk Level:: Medical - moderate - high VTE Device Contraindication: Treatment Not Indicated VTE Drug Contraindication: N/A - Med Ordered
[2025-01-29] MEDS: Ferrous Sulfate 324 MG TABLET.DR PO (08:46)
[2025-01-29] MEDS: 0.9 % Sodium Chloride Flush 3 ML SYRINGE IVFLUSH ×2 (08:47→15:29)
[2025-01-29 11:15] LABS: Glucose, Whole Blood 126 mg/dL (60-115)
--- NOTE | 2025-01-29 13:53 | MHC.CM.PN ---
Addendum entered by Ginette Santos 01/29/25 16:02: Insurance authorization received. The patient will transport via BLS. 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 Original Note: Authorization for STR @ [facility] is still pending. A HCP has been documented and scanned into the EMR. DP STR via BLS once auth received.
[2025-01-29 15:09] VITALS: BP 142/76; PULSE 64; RESP 18; TEMP 36.1; O2SAT 94
--- NOTE | 2025-01-29 16:05 | P.DS_ITS ---
DS: Providers Provider Date of Service: 01/29/25 Date of admission: 01/27/25 00:05 Date of discharge: 01/29/25 Primary care physician: Regina Soto MD DS: Diagnosis Discharge Diagnosis (1) Hypothyroid: Status: Acute (2) Acute metabolic encephalopathy: Status: Acute DS: Summary Hospital Course Hospital Course: From admission HPI: Date of Service: 01/27/25 Attending physician on admission: Mona Greenfield Chief Complaint: Generalized weakness, confusion Miriam Sena is 84 years old woman with past medical history significant for hypothyroidism noncompliant with levothyroxine, vitamin B12 deficiency on B12 injections, vitamin D deficiency, type 2 diabetes mellitus on sitagliptin and metformin and depression presents to the emergency department accompanied by her daughters due to generalized weakness and tiredness to have has been getting worse over the last week. The patient denied any headache, dizziness, chest pain, nausea, vomiting or diarrhea. There are no focal weakness, speech difficulty, facial droop or acute visual disturbances. She did complain of some shortness on breath with exertion. Daughter is commented that she has been confused. At the beginning of this current month, the patient was found to have over hypothyroidism and his levothyroxine dose was increased to 125 mcg from 112 mcg. According to daughters the patient does not like to take her morning medications including the levothyroxine. Sometimes her daughter finds her pills on the floor. Patient denied tobacco smoking, alcohol abuse or illicit drug use. In the ED, she was found to have normal vital signs. Blood workup showed no leukocytosis. Hemoglobin is 9.7, hematocrit 29.9 and MCV 102.1. Platelets are 160. Electrolytes are normal. BUN is 12 and creatinine 0.93. Glucose 172. Transaminases are elevated, bilirubin and alk-phos are normal. TSH is over 100 and free T4 less than 0.42. UA is consistent with UTI. Viral testing is negative for COVID-19, influenza and RSV. CXR showed mild bibasilar crackles and nonspecific mild interstitial opacities and might reflect mild edema. ECG showed normal sinus rhythm, nonspecific ST changes and normal QT interval. ED tx: Ceftriaxone 2 g, levothyroxine 150 mcg p.o., Solu-Cortef 100 mg IV Hospital course Pt was admitted to the hospital for acute metabolic encephalopathy that was likely multifactorial: In the setting of UTI as well as overt hypothyroidism due to medication noncompliance. Patient's UA was positive and grew Klebsiella pneumoniae; pt was treated with ceftriaxone 1 g IV x4 days. After speaking with family, pt likely has underlying early dementia and has been refusing/forgetting her home medications especially in the mornings. In the hospital patient's free T4 was undetectable, though patient's scored very low on the myxedema coma diagnostic score. Patient's mentation eventually improved back to baseline, and she was seen and evaluated by Physical therapy who recommended discharge to short-term rehab. Pt will be discharged to [facility] where her stay is expected to be less than 30 days. She will be prescribed cefuroxime 250 mg b.i.d. x3 days, ending on 02/01. Additional details concerning hospital stay as indicated below. 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 Of note, pt has routinely been refusing morning meds, including levothyroxine Acute UTI UA concerning for UTI Urine culture growing gram negative rods Continue ceftriaxone, day 4 Weakness PT evaluation recommend STR Currently waiting for placement Macrocytic anemia Due to vitamin B12 deficiency Check intrinsic factor and MMA Currently stable, continue to monitor Type 2 diabetes mellitus A1C 7.3 Hold metformin Continue sitagliptin SSI, diabetic diet History of vitamin-D and B12 deficiency Continue home supplementation Time Attestation Discharge Coordination Time (in mins): 33 Quality: Safe Use of Opioids Does Pt have an Active Cancer Diagnosis on the Problem List?: No Quality: Stroke Does the patient have a stroke diagnosis?: No Physical Exam Exam: Exam: General: Alert and oriented to self and place, not to time or situation. In no acute distress. elderly Resp: CTA bilaterally CVS: S1, S2, RRR GI: +BS, NT, no distention Skin: Warm, dry Neuro: Cranial nerves II-XII grossly intact bilaterally. Motor grossly intact bilaterally. Global weakness Extremities: No edema Psych: Pleasantly confused Vital Signs: Vital Signs: Last Vital Signs Temp 97.0 F 11/19/25 15:09 Pulse 64 01/29/25 15:09 Resp 18 01/29/25 15:09 BP 142/76 H 01/29/25 15:09 Pulse Ox 94 01/29/25 15:09 O2 Del Method Room Air 01/29/25 15:09 BMI result Body Mass Index 36.9 DS: Data Data Completed and Pending Labs on day of discharge: Laboratory Results - last 24 hr 01/28/25 01/28/25 01/29/25 16:18 21:00 07:21 POC Glucose 213 H 113 122 H 01/29/25 11:04 POC Glucose 126 H Discharge Plan Discharge Anticipated Discharge Date/Time: 01/29/25 16:10 Patient Disposition: Xfer SNF Discharge Diagnosis: Acute metabolic encephalopathy in setting of UTI Referrals: [facility] [Other] - 1 Week Regina Soto MD [Primary Care Provider, Medical] - 1 Week Discharge Medications: New cefuroxime axetil 250 mg tablet 250 mg PO BID Qty: 6 0RF Rx Instructions: Take 1 tab twice a day with meals for UTI. Start the morning of 01/30 and end the evening of 02/01. Continued ferrous sulfate 325 mg (65 mg iron) tablet 325 mg PO QAM rosuvastatin 10 mg tablet 10 mg PO BEDTIME Jardiance 10 mg tablet 10 mg PO QAM duloxetine 20 mg capsule,delayed release(DR/EC) 20 mg PO BID docusate sodium [Colace] 100 mg capsule 100 mg PO DAILY levothyroxine 125 mcg capsule 125 mcg PO DAILY melatonin 5 mg capsule 5 mg PO BEDTIME PRN (Reason: Insomnia) metformin 1,000 mg tablet 1,000 mg PO BID mirtazapine 30 mg tablet 30 mg PO BEDTIME cholecalciferol (vitamin D3) 25 mcg (1,000 unit) capsule 25 mcg PO DAILY Discharge Orders: Discharge Order (Routine); Ordered 01/29/25 Ordered By: Deana Modi Activity on Discharge: As tolerated Stand Alone Forms: Patient Portal Discharge page Print Language: [place] Care Plan Goals: See below Health Concerns: Acute metabolic encephalopathy UTI Hypothyroidism Medication noncompliance Plan of Treatment: You were admitted to the hospital after experiencing weakness, body aches, m alaise, and increased confusion for the past week and workup was positive for overt hypothyroidism and acute UTI. According to her family has been refusing all of your home medications including your levothyroxine. In the hospital you were treated with IV antibiotics for your UTI and given your home medications including her levothyroxine. You were seen and evaluated by PT who recommended short-term rehab, and you will be discharged there for strength and conditioning. -- for UTI, take cefuroxime 250 mg twice a day with food for the next 3 days, starting the morning of 01/30 and ending the evening of 02/01. -- please make sure your compliant with all of your home medications, including full-dose in the morning. It is especially important that you take your levothyroxine in order to maintain healthy metabolism -- resume all of your other home medications Assessment: See discharge summary Discharge Date/Time: 01/29/25 18:21
[2025-01-29 16:06] LABS: Glucose, Whole Blood 131 mg/dL (60-115)
[2025-01-29 18:14] VITALS: BP 133/65; PULSE 66; RESP 18; TEMP 36.7; O2SAT 95
[2025-01-29 20:48] LABS: Intrinsic Factor Antibodies Negative (Negative)
== END 2025-01-29 18:21 | disposition skilled nursing facility (03) | DRG 689 ==
LOC: HO.ED 20:43 → HO.EDOVER 01-27 00:24 → HO.S3 01-27 07:29
PROVIDERS: Admitting Provider Internal Medicine; Emergency Provider Emergency Medicine; PCP Internal Medicine; Visit Provider Student in an Organized Health Care Education/Training Program
DX: N39.0 Urinary tract infection, site not specified (principal); G93.41 Metabolic encephalopathy; E03.9 Hypothyroidism, unspecified; B96.1 Klebsiella pneumoniae [K. pneumoniae] as the cause of diseases classified elsewhere; E11.9 Type 2 diabetes mellitus without complications; R53.81 Other malaise; E55.9 Vitamin D deficiency, unspecified; D51.9 Vitamin B12 deficiency anemia, unspecified; Z20.822 Contact with and (suspected) exposure to COVID-19; Z91.148 Patient's other noncompliance with medication regimen for other reason; Z79.84 Long term (current) use of oral hypoglycemic drugs; Z79.890 Hormone replacement therapy; Z79.899 Other long term (current) drug therapy
CPT/HCPCS: 36415; 71045; 80048; 80053; 80061; 81001; 82306; 82607; 82746; 82947; 83036; 83615; 83735; 83880; 83921; 84439; 84443; 85025; 86340; 87086; 87088; 87186; 87637; 93005; 97162; 99221; 99285; J0696; J1644; J1720

== ENCOUNTER → 2025-01-26 22:57 | Outpatient (BNV) | payer OTHER, SELFPAY | PROVIDERS: Admitting Provider Internal Medicine; Emergency Provider Emergency Medicine; PCP Internal Medicine; Visit Provider Radiology Neuroradiology | DX: J98.11 Atelectasis (principal); R91.8 Other nonspecific abnormal finding of lung field | CPT/HCPCS: 71045 ==

== ENCOUNTER → 2025-01-26 22:57 | Outpatient (BNV) | payer OTHER, SELFPAY | PROVIDERS: Admitting Provider Internal Medicine; Emergency Provider Emergency Medicine; PCP Internal Medicine; Visit Provider Internal Medicine | DX: R94.31 Abnormal electrocardiogram [ECG] [EKG] (principal); E03.9 Hypothyroidism, unspecified | CPT/HCPCS: 93010 ==

== ENCOUNTER → 2025-01-27 00:05 | Outpatient (BNV) | payer OTHER, SELFPAY | PROVIDERS: Admitting Provider Internal Medicine; Emergency Provider Emergency Medicine; PCP Internal Medicine; Visit Provider Internal Medicine | DX: E03.9 Hypothyroidism, unspecified (principal); G93.41 Metabolic encephalopathy | CPT/HCPCS: 99233; 99239 ==

== ENCOUNTER 2025-02-19 09:38 | Outpatient (REF) | payer OTHER, SELFPAY ==
[2025-02-19 18:08] LABS: Free T4 (Free Thyroxine) 1.25 ng/dL (0.71-1.85)
== END 2025-02-19 09:39 | disposition home or self-care (01) ==
LOC: HO.CHCLDS 09:38
PROVIDERS: Visit Provider Internal Medicine
DX: E03.9 Hypothyroidism, unspecified (principal)
CPT/HCPCS: 36415; 84439; 84443